=== PATIENT | female | born 1960 | race Caucasian/White ===

== ENCOUNTER → 2022-03-01 | Outpatient (CLI) | payer MEDICAID, SELFPAY ==
--- NOTE | 2022-03-01 08:34 | MRI_ITS ---
STUDY: MRI THORACIC SPINE WITHOUT CONTRAST REASON FOR EXAM: Female, 62 years old. compression fx T6 TECHNIQUE: Standardized fat and water weighted pulse sequences were obtained in the sagittal and axial planes. COMPARISON: Thoracic spine radiograph FINDINGS: Normal kyphosis of the thoracic spine. There is no substantial scoliosis. T1-2, T2-3, T3-4, T4-5, T5-6, T6-7, T7-8, T8-9, T9-10, T10-11, T11-12: Normal endplates. Normal disc hydration, heights and morphology of the corresponding intervertebral discs. Normal central canal and intervertebral neural foramina at the corresponding levels.Compression fracture T6 vertebral body with 50% loss of height and no significant retropulsion. Bone marrow edema noted. Normal visualized thoracic cord. Normal conus medullaris that terminates at the . The soft tissue structures are unremarkable. MRI/Spine Thoracic (Routine) IMPRESSION: Compression fracture T6 as above Electronically Signed: Gary Everett MD at 20:36 EST ,
== END | disposition home or self-care (01) ==
LOC: MRI 08:34
PROVIDERS: PCP Nurse Practitioner Adult Health; Referring Provider Orthopaedic Surgery; Visit Provider Orthopaedic Surgery
DX: S22.050A Wedge compression fracture of T5-T6 vertebra, initial encounter for closed fracture (principal)
CPT/HCPCS: 72146

== ENCOUNTER 2022-04-27 10:53 | Day surgery (SDC) | payer MEDICAID, SELFPAY ==
[2022-04-27] VITALS (9 sets, daily range): BP systolic 104–121; BP diastolic 61–84; PULSE 90–103; RESP 16–18; TEMP 36.6–37.1; O2SAT 92–100; BMI 29.5
[2022-04-27] MEDS: Lactated Ringers 1,000 ML 15 ML IV ×2 (11:25→15:05)
[2022-04-27] MEDS: Cefazolin 2 GM in 0.9% Normal Saline 100 ML IV (13:00)
--- NOTE | 2022-04-27 13:10 | RAD_ITS ---
STUDY: X-RAY - thoracic SPINE REASON FOR EXAM: Female, 62 years old. KYPHOPLASTY T6 TECHNIQUE: 7 view(s) of the lumbar spine were obtained. COMPARISON: None FINDINGS: Intraoperative imaging provided for kyphoplasty of the T6 vertebrae. RAD/Lumbar Spine 2 or 3 Views IMPRESSION: Intraoperative imaging provided for kyphoplasty of the T6 vertebrae. Electronically Signed: Ian Cutler MD at 14:20 EST ,
[2022-04-27 13:15] LABS: Bedside Glucose 134 mg/dL (74-106)
[2022-04-27] MEDS: Bupivacaine Mpf 0.5% 30 ML VIAL (14:05)
[2022-04-27 16:20] LABS: Bedside Glucose 146 mg/dL (74-106)
== END 2022-04-27 16:15 | disposition home or self-care (01) ==
LOC: SDC 10:55 → AC 10:56
PROVIDERS: PCP Nurse Practitioner Adult Health; Referring Provider Anesthesiology Pain Medicine; Visit Provider Anesthesiology Pain Medicine
PROC: (CPT 22513; principal; 2022-04-27 12:45)
DX: M80.08XA Age-related osteoporosis with current pathological fracture, vertebra(e), initial encounter for fracture (principal); J44.9 Chronic obstructive pulmonary disease, unspecified; E11.9 Type 2 diabetes mellitus without complications; M54.14 Radiculopathy, thoracic region; M19.90 Unspecified osteoarthritis, unspecified site; M79.7 Fibromyalgia; Z79.52 Long term (current) use of systemic steroids; Z79.84 Long term (current) use of oral hypoglycemic drugs; Z79.899 Other long term (current) drug therapy
CPT/HCPCS: 22513; 72020; 72100; 76000; 82962; J7120; J2405

== ENCOUNTER 2022-06-05 11:43 | Outpatient (RCR) | payer MEDICAID, SELFPAY ==
--- NOTE | 2022-06-05 13:57 | HP.PTEVAL ---
Patient's Visit Information DASHA CARDENAS is a 62 year old F referred to Physical Therapy by Dr. Prosper Umanzor DO with a diagnosis of Prehab Partial Right Knee. Date of Evaluation: 06/05/22 Physical Therapist: Shaila Helton DPT - Visit Plan Frequency: 1x/Week Duration: 1 Week Plan: Prehab Partial Total Knee - Subjective Patient reports that she broke in January had a Kyphoplasty Apr 27 and is now having a Right Partial Knee Replacement July 03. Wear and tear no specific injury- she has had 2 prior surgeries on this knee. Worst: 10/25 Agg: everything Best: 08/25 Eases: nothing. Pain is around the whole knee and stays swollen all the time- its been worse since back surgery. Pain radiates down and up depending on what she is doing. No N/T in the toes. She wears a knee brace all the time. Sleep: disturbed. Work: not since she broke her back. She retired but she does want to go back to doing something. She wants to go back to retail. PMHx/Meds: no changes since saw ortho - Objective Posture: FH, RS- can correct but does not maintain. Gait: antalgic- decreased stance on the right LE with poor heel/toe pattern due to decreased extension HR/TR: able SLS: 5 sec with increased sway. Observation: moderate edema ROM: 0-115 degrees with pain at end ranges Strength: Knee: Flexion: 14 Extn: 31 Ankle: 4+/5. Flex: HS: severe, Solues: severe. Hamstring: severe Sensation: WNL to gross touch. Palpation: tender along medial and lateral joint line - Goals Goal 1:: Patient will be I with HEP and progression Goal Time Frame: 1 Week - Rehabilitation Potential Physical Therapy Diagnosis: Patient presents with hypomobility- she has decreased LE and core strength/stabilization, ROM, flex, proprioception and muscular endurance leading to abnormal gait and increased pain with ADL's. Rehabilitation Potential: Good - Anticipated Interventions Patient/Client Instruction: Educate patient on: Benefits of Fitness Program Therapeutic Exercise to Include: Strength training, Endurance training, Balance training, Coordination, Agility training, Body mechanics, Postural training, Flexibilty training, Gait and locomotor training, Neuromotor development, Passive ROM, Active ROM, Dynamic Lumbar Stabilization, Scapular Strength/Stabilization Thank you for the opportunity to evaluate your patient. For Medicare and Medicare HMO plans, please review the plan of care and approve it. It will need to be FAXED BACK to us at [phone] for Medicare purposes. For Medicare only, by signing this I certify the plan of care. Please let me know if there are questions or concerns regarding this plan of care. Physician Signature: Date:
--- NOTE | 2022-06-05 13:57 | HP.PTDCSUM ---
It has been my pleasure to treat DASHA CARDENAS referred by Dr. Prosper Umanzor DO, with the diagnosis of Prehab Partial Right Knee for a total of 1 visit(s). Discharge Date: Please see the following information for a summary of their discharge status. Goal 1:: Patient will be I with HEP and progression Plan: Prehab Partial Total Knee If there are questions or concerns regarding this patient's physical therapy, please feel free to call me at [phone]. Thank you for the referral of this patient. Sincerely, CARLOS WareT
== END 2022-06-05 15:41 | disposition home or self-care (01) ==
LOC: PT 11:43
PROVIDERS: PCP Nurse Practitioner Adult Health; Referring Provider Orthopaedic Surgery; Visit Provider Orthopaedic Surgery
DX: M17.11 Unilateral primary osteoarthritis, right knee (principal)
CPT/HCPCS: 97110; 97162

== ENCOUNTER → 2022-06-14 | Outpatient (CLI) | payer MEDICAID, SELFPAY ==
--- NOTE | 2022-06-14 15:43 | CT_ITS ---
EXAM: CT RIGHT LOWER EXTREMITY WITHOUT INTRAVENOUS CONTRAST CLINICAL INDICATION: templating for right TKA TECHNIQUE: Helically acquired images were obtained of the right lower extremity without intravenous contrast. 2-D reformats were performed by the technologist. CTDIvol = ( 24.94 ) mGy, DLP = ( 1805.80 ) mGycm This CT exam was performed using one or more of the following dose reduction techniques: automated exposure control, adjustment of the mA and/or kV according to patient size, and/or use of iterative reconstruction technique. This report was created using [employer] technology. COMPARISON: None. FINDINGS: BONES/JOINTS: Focal lucency is suspicious for osteochondral lesion at the lateral talar dome measuring 6 mm. Large suprapatellar joint effusion. Severe tricompartmental osteoarthrosis of the knee. Moderate osteoarthrosis involving the right hip joint. Calcaneal enthesopathy, more prominent at the plantar aspect. Moderate osteoarthritic changes are seen at the tibiotalar articulation, worse posteriorly. No significant tibiotalar joint effusion on CT. No acute or healing fracture or malalignment. SOFT TISSUES: Unremarkable. No soft tissue swelling or gas. No radiopaque foreign body. CT/Extremity Lower without Contra IMPRESSION: 1. Preoperative planning study. 2. Severe tricompartmental osteoarthrosis of the knee with associated large suprapatellar joint effusion. 3. Focal lucency is suspicious for age indeterminate but likely chronic osteochondral lesion at the lateral talar dome measuring 6 mm. Electronically Signed: Kevin Izquierdo MD at 4:50 EDT ,
== END | disposition home or self-care (01) ==
LOC: CT 15:42
PROVIDERS: PCP Nurse Practitioner Adult Health; Referring Provider Orthopaedic Surgery; Visit Provider Orthopaedic Surgery
DX: M17.11 Unilateral primary osteoarthritis, right knee (principal)
CPT/HCPCS: 73700

== ENCOUNTER 2022-07-03 05:23 | Day surgery (SDC) | payer MEDICAID, SELFPAY ==
[2022-06-21 10:07] LABS: Absolute Neutrophil Count 4.6 X10^3/uL (2.0-7.7); Basophil# 0.07 X10^3/uL; Basophil% 0.9 % (0-1); Eosinophil# 0.36 X10^3/uL; Eosinophils% 4.8 % (0-5); Hematocrit 42.2 % (37-47); Hemoglobin 13.7 g/dL (12.0-15.0); Lymphocyte % 24.1 % (19-41); Mean Corp Hgb Conc 32.5 g/dL (32-36); Mean Corpuscular Volume 92.3 fL (81-99); Monocyte# 0.62 X10^3/uL; Monocyte% 8.3 % (0-10); NRBC Flagged by Analyzer 0 % (0-5); Neutrophil # 4.57 X10^3/uL (2.7-7.7); Neutrophil % 61.4 % (47-70); Platelet Count 282 K/mm3 (150-450); RBC Distribution Width CV 13.2 % (11.6-14.6); RBC Distribution Width SD 45.1 fl (35.1-43.9); Red Blood Count 4.57 M/mm3 (4.2-5.4); White Blood Count 7.5 K/mm3 (4.4-11.0)
[2022-06-21 10:30] LABS: Anion Gap 8 (5-15); BUN 23 mg/dL (7-18); BUN/Creat Ratio 25.9 RATIO (10-20); Calcium,Total 9.2 mg/dL (8.5-10.1); Chloride 104 mmol/L (98-107); Creatinine, Serum 0.89 mg/dL (0.55-1.02); EST Glomerular Filtration Rate 69 mL/min (>60); Est Glom Filt Rate - Afr Amer 83 mL/min (>60); Glucose 136 mg/dL (74-106); Potassium 3.8 mmol/L (3.5-5.1); Sodium Level 138 mmol/L (136-145)
[2022-06-21 10:33] LABS: Prothrombin Time (Protime)PT. 12.4 SECONDS (11.7-14.9)
[2022-06-21 10:34] LABS: Partial Thromboplast Time 32.2 Seconds (24.1-36.2)
[2022-06-21 10:40] LABS: Magnesium 2.3 mg/dL (1.6-2.6)
[2022-06-21 10:43] LABS: Hemoglobin A1c 6.7 % (3.8-5.6)
[2022-06-22 15:50] LABS: Fructosamine 222 umol/L (0-285)
[2022-07-03] VITALS (10 sets, daily range): BP systolic 97–128; BP diastolic 65–79; PULSE 68–88; RESP 14–20; TEMP 36.1–37.2; O2SAT 93–99; BMI 29.0
[2022-07-03] MEDS: Magnesium 1 GM over 15 mins IV (06:14)
[2022-07-03] MEDS: Lactated Ringers 1,000 ML 15 ML IV (06:14)
[2022-07-03] MEDS: Scopolamine 1mg/72hr Patch 1 PATCH TD (06:15)
[2022-07-03] MEDS: Celecoxib 200 MG Capsule 400 MG PO (06:17)
[2022-07-03] MEDS: Acetaminophen 500 MG Tablet 1000 MG PO (06:18)
[2022-07-03] MEDS: Gabapentin 600 MG Tablet PO (06:18)
[2022-07-03] MEDS: Insulin Lispro 100 UNIT/ML INSULN.PEN SC (06:27)
[2022-07-03 06:51] LABS: Bedside Glucose 332 mg/dL (74-106)
--- NOTE | 2022-07-03 07:30 | KNEE_PTH ---
PATIENT: DASHA CARDENAS LOC: [facility] [place] U#:[id number] AGE/SX: 62/F ROOM: RE07/03/[address]: Dr. Prosper Umanzor DO : 1960 BED: DIS: 07/03/2022 SPEC #: [id number] RECD: 07/03/22 11:01 STATUS: PIERCE RECuauhtemoc #: [id number] ROBYN: 07/03/22 07:[address]: Prosper Umanzor DEPT: SURGICAL PATHOLOGY RECD BY: Polina Schmitt ENTERED: 07/03/22 11:25 SP TYPE: TOTAL KNEE OTHR DR: Shannon Herman, GUERA Tissues: Knee, NOS Procedures: Decalcification bone/plaque Surgery Specimen Level IV HEADER OPERATION: ERAS, total knee replacement robotic arm assist PRE-OP DIAGNOSIS: Right knee pain TISSUE SUBMITTED: Bone and soft tissue right knee MICROSCOPIC DIAGNOSIS Bone and tissue, right knee, total knee replacement/resection: Pieces of bone with degenerative osteoarthritic changes. Fibroadipose tissue, fibroconnective tissue and reactive synovial tissue. SJ:isela 07/06/2022 MICROSCOPIC DESCRIPTION Slides are reviewed. GROSS DESCRIPTION Received is one container designated bone and tissue right knee. The specimen consists of multiple fragments of bangura-yellow bone measuring in aggregate 14.0 x 10.0 x 2.0 cm. Also in the specimen container are multiple fragments of yellow-white soft tissue measuring in aggregate 8.0 x 3.0 x 2.0 cm. A number of bony fragments contain articular surfaces consistent with tibial plateau and femoral condyle and displaying prominent osteophyte formation, eburnation and bone erosion. Paraprofessional Aide Teacher sections are submitted in two cassettes as follows: 1 - soft tissue, 2 - bone after decalcification. / AM:isela 07/03/2022 TC:5 CPT: 39876, 90928
[2022-07-03] MEDS: Cefazolin 2 GM in 0.9% Normal Saline 100 ML IV (07:36)
[2022-07-03] MEDS: dexAMETHasone 10 MG/ML Vial IV (07:50)
[2022-07-03] MEDS: TXA 1000mg in NS100 100ml (IVPB at Incision) 660 MG IV (07:50)
[2022-07-03] MEDS: TXA 1000mg in NS100 100ml (IVPB at Closure) 660 MG IV (08:10)
[2022-07-03] MEDS: 0.9% Normal Saline (Pres. free 10 ML Vial 20 ML OPERA.SITE (09:00)
[2022-07-03] MEDS: dexAMETHasone 4 MG/ML Vial OPERA.SITE (09:00)
[2022-07-03] MEDS: Epinephrine (1 mg/ml) 1 MG/ML VIAL OPERA.SITE (09:00)
--- NOTE | 2022-07-03 09:43 | RAD_ITS ---
STUDY: X-RAY - RIGHT KNEE REASON FOR EXAM: Female, 62 years old. Post opin pacu -- in PACU TECHNIQUE: 2 view(s) of the knee. COMPARISON: Comparison is made with prior study May 23, 2022. FINDINGS: The patient is status post total knee replacement. There is good alignment. Postoperative soft tissue changes. RAD/Knee 1 or 2 Views IMPRESSION: Status post total knee replacement. There is good alignment. Postoperative soft tissue changes. Electronically Signed: Ian Cutler MD at 14:52 EDT ,
--- NOTE | 2022-07-03 09:45 | HP.PCM_ITS ---
History and Physical Date of Admission: 07/03/22 [facility] [address] [place] [address] OFFICE VISIT Date of Service:? 06/22/22 MR#: [id number] Acct: [id number] Name:DASHA FUENTES Rep #: [id number] : 1960 ? ? Provider: Dr. Prosper Umanzor, DO Age/Sex:? 62/F ? ? [place] [facility] [place] Status: Signed Intake Intake Visit Reasons:?right knee Allergies aspirin Allergy (Verified 05/18/22 10:58) Nausea/Vom/DiarrheaLatex, Natural Rubber Allergy (Verified 05/18/22 10:58) Hives Medications albuterol sulfate 90 mcg/actuation aerosol inhaler 1 inh inhalation PRN PRN COPD 02/28/22 [History Confirmed 06/22/22] cyclobenzaprine 10 mg tablet 10 mg PO PRN PRN Pain 02/28/22 [History Confirmed 06/22/22] hydrochlorothiazide 25 mg tablet 25 mg PO DAILY 02/28/22 [History Confirmed 06/22/22] lidocaine 5 % topical ointment 1 applic topical DAILY 02/28/22 [History Confirmed 06/22/22] metformin 500 mg tablet 500 mg PO BID 02/28/22 [History Confirmed 06/22/22] amlodipine 5 mg tablet 5 mg PO DAILY 04/25/22 [History Confirmed 06/22/22] benzonatate 100 mg capsule 100 mg PO PRN PRN Cough 04/25/22 [History Confirmed 06/22/22] loratadine 10 mg tablet (Claritin) 10 mg PO DAILY 04/25/22 [History Confirmed 06/22/22] PFSH Medical History? Anxiety Arthritis Back pain Chronic cough COPD (chronic obstructive pulmonary disease) Depression Diabetes Excessive bleeding Fibromyalgia History of IBS History of pain when walking History of rheumatic fever History of steroid therapy Hypertension Injury of back Leg cramps Migraine headache Restless legs Smoker Wears glasses Surgical History? Hx of appendectomy Hx of hernia repair Hx of oophorectomy Hx of tonsillectomy Family History? Mother CancerFather Heart problem Social History? Smoking Status:? Former smoker alcohol intake:? never HPI right knee Details: Parts of this documentation were recorded by a scribe, this documentation accurately reflects the service provided and the decisions made by me, Dr. Prosper Umanzor, DO 06/22/22 6217. DASHA CARDENAS is a 62 year old F here today for? right knee IOVERA treatment prior to right TKA. She continues to have right knee pain. Denies numbness, tingling or other associated symptoms. She has stopped smoking since her last visit. Ortho Exam General General: Yes no acute distress Neurologic: Yes alert and Yes oriented x3 Right Knee Skin/Wound: Yes CDI, No erythema, No ecchymosis and No swelling Homans Sign: No 1+: Effusion Knee ROM: Yes ROM-Extension -20 to 0 and No ROM-Flexion 0-140 (103) Examination: Yes Med jt line tenderness, Yes Lat jt line tenderness, Yes Pain with flexion and No TTP Pes Anserine Stability: NML: Posterior Drawer, 1+: Valgus 0, 1+: Valgus 30 and 1+: Varus 30 (3mm lateral gapping with varus stress) and 2+: Anterior Drawer Patella Translation: 1 Patella Grind: Yes KNEE: valgus deformity painful crepitation with patellar grind laxity with drawer testing Head: Normocephalic Atraumatic Chest: symmetrical rise, non-labored breathing, no audible wheeze Abdomen: no guarding, non-rigid Left Knee Patella Translation: 1 Head: NCAT Chest: symmetrical rise, regular pulse pulm: non labored breathing no audible wheeze abd ; soft nontender no guarding. Office Procedures Iovera Procedure Details:: Preoperative diagnosis :right knee pain Postoperative diagnosis: Same Procedure: Cryotherapy with Iovera device to anterior femoral cutaneous nerve and 2 branches of the infrapatellar saphenous nerve III nerves in total Description of procedure: Patient was brought back to the procedure room the operative extremity was identified by both patient and physician.? The PIP flexion crease was measured to the midpoint of the patella and this distance was divided in 3 resulting in 10 cm location proximal to the midpoint of the patella.? This line was extended medial and lateral to the extent of the edges of the patella.? This was our treatment line for the anterior femoral cutaneous nerve.? A second treatment line was made 5 cm medial to the inferior pole of the patella and 5 cm distally.? The leg was prepped with alcohol and Betadine.? Lidocaine with epi was used along the treatment lines.? Using the Iovera device treatment lines were treated with 1 minute cycles.? Reproduction of paresthesias was monitored in the area of nerve distribution.? Once all 3 nerves were treated across the 2 treatment lines patient was cleaned and a light dressing with 4 x 4 and Nathan wrap was applied.? Patient tolerated the procedure without complication. Coding Level of Care Code Attention Ras Diagnoses Right knee pain? M25.561 Assessment and Plan Assessment and Plan (1) Right knee pain: ?Status:?Acute ? ? ? Orders: Orders Iovera Today M25.569 - Pain in unspecified knee ? Plan Patient instructed to wash the area daily for about 3-4 days. She will leave the dressing and nathan wrap on until tonight.?Risks, benefits and alternatives of surgery reviewed including but not limited to bleeding, infection, nerve, artery and/or tissue damage, fracture, VTE, mechanical feel of the knee, continued pain, stiffness and expected post-operative course.?Reviewed the pre-operative plans with the patient. Risks and benefits of the procedure were fully explained, including but not limited to infection, neurovascular injury, continued pain, arthritis, stiffness, need for further surgery, re-injury, DVT, PE, general risks of anesthesia, and loss of limb or life. The patient understands all the risks and does wish to proceed with written consent for right TKA. Follow up 2 weeks post op or sooner if pain, swelling, numbness or associated symptoms, or concerns develop.? All questions answered. Patient in agreement of plan. 06/22/22 1042 <Electronically signed by Prosper Umanzor DO> Date Prosper Umanzor DO Cosigner Signature: Date (if applicable) ? CC: ? ~ I have examined the patient and the H&P has been reviewed. There are no clinical changes since date of exam.
--- NOTE | 2022-07-03 09:49 | PCM.OP.BLANK ---
Operative Report Date of Procedure: 07/03/22 Preoperative diagnosis: Right knee DJD Postoperative diagnosis: Same Procedure: Right total knee arthroplasty CT guided Robotic Assisted Implant: [place] triathlon press fit, femoral component size 4, tibial baseplate size 5, asymmetric patella size 38, polyethylene X3 size 9 CS Anesthesia: Spinal with adductor canal block Tourniquet time: 15 minutes at 300 mmHg Complications: None Condition: Stable to PACU Estimated blood loss: 125 cc Memorandum Statement Clerk Aubrey Sales. My physician automobile mechanic assistant was a vital part of this case. He was important in appropriate retraction during the case, and protection of soft tissues during procedure. His intimate knowledge of the case and my steps aided in safe and expedient completion of the procedure as well as appropriate position of the extremity during the case. He was also vital in assisting with closure under my direct supervision. Indication for procedure: This is a 62-year-old female with long standing degenerative joint disease of the knee who has failed conservative treatment and wished to proceed with elective total knee arthroplasty. Risk benefits and alternatives were reviewed including; risk of bleeding, infection, nerve artery and tissue damage, continued pain, postoperative stiffness, venous thromboembolism, need for postoperative rehabilitation, mechanical feel to the knee, and expected postoperative course. The pre- operative CT and templating was performed with component sizing. Procedure: The patient was met in the preoperative holding area. The operative extremity was identified by both patient and physician and was marked. Patient was met by anesthesia. An adductor canal block was placed by anesthesia postoperatively the patient was brought back to the operating room on a wheeled cart and transferred to the operating table in the supine position. Anesthesia was started. A well-padded tourniquet was placed on the operative extremity. The patient was prepped and draped in the usual sterile fashion. A timeout was called to ensure the proper patient procedure and extremity were being contemplated. An esmarch was used to exsanguinate the extremity. The tourniquet was inflated. A 10 blade scalpel was used to make a midline incision down through the skin and subcutaneous tissue. Skin retractors placed. Bovie and Aquamantis were used to perform meticulous hemostasis. full-thickness flaps were elevated medial and lateral along the joint capsule. A deep blade scalpel was used to perform a medial parapatellar arthrotomy. The knee was brought to full extension. A bovie was used to release the soft tissues off the most proximal aspect of the medial tibial plateau, a three-quarter inch curved osteotome was also used in this process. The infrapatellar fat pad was excised. The suprapatellar fat pad was excised partially anteriorolateraly and portion the anterioromedial pad was elevated from the femur. At this point our intra-articular femoral array was placed at a 45 degree angle proximal and posterior to the medial epicondyle. femoral checkpoint was placed at this time. Our tibial array was placed greater than 1 hands breath below the incision at a 20 degree angle stab incisions were made with a 15 blade scalpel and pins were placed and attached to the tibial array , tibial checkpoint was placed in the proximal tibial metaphysis. Tourniquet was let down. At this point registration curry were taken throughout the knee . Once the knee was registered we then tensioned the medial and lateral ligaments in extension and 90 degrees of flexion. We then used these numbers to adjust our components within parameters to balance the knee in both flexion and extension once this was done on our monitor we then proceeded with using the robotic arm to make our tibial plateau cut, anterior and posterior chamfer and distal femur cuts. we removed the cut fragments with the use of a bovie and Halina, we did use a lamina stud dairy cattle farmer to insure we visualized and removed all posterior osteophytes and at this time also used the Aquamantis on the posterior joint capsule. we then trialed and achieved the desired plan with a well-balanced knee. we used the green probe to aggie the corresponding tibial rotation based on our CT template. Lug holes were drilled in the femur the tibia preparation was completed with the appropriate sized base plate pinned based on previous rotation aggie. An appropriate sized fin punch was used on the tibia and 4 corner drill was used for the press fit component and the patella was prepared by first using a caliper to ensure sufficient bone stock and a patellar reamer to remove the desired amount of bone. lug holes drilled for an asymmetric poly. We then brought the knee through range of motion with excellent patellar tracking. We thoroughly irrigated the knee. Trial components were removed a posterior capsular injection was preformed with our standard cocktail. In addition the aqua Mantis was also used to aid in hemostasis. Betadine rinse was allowed to sit and washed out completely. Components were press-fit into place. Aricept rinse was then used followed by several more liters of irrigation after it was allowed to sit. The joint capsule was closed with #1 Ethibond [id number] followed by Vicryl in the subcutaneous tissues with nida in the skin. Arrays and checkpoints were removed prior to closure all counts were correct stab incisions were closed with a staple standard dressing in the form of Mepilex AG for the main incision and a small Mepilex over the pin holes. Thigh-high MADELYN hose applied over top of dressing. Patient tolerated the procedure well and was directed to PACU in stable condition . There were no intraoperative complications.
--- NOTE | 2022-07-03 09:51 | EX.PCM.DISCH ---
Discharge Instructions Diet Discharge Diet: 2000 Calorie Control Diet (High sugar diet increases risk of infection minimize carbs and sweets) Dressing / Incision Call your doctor if you observe: Shortness of breath and Chest pain Additional Dressing/Incision Instructions:: Ice and elevate lower extremities 2 weeks while not ambulating. Ambulation is encouraged. Weight bearing as tolerated. Use assistive devise for stability. Encourage FULL knee extension and flexion 1 time EVERY time you get up and down and MULTIPLE times per day. No showering 72 hours after surgery. Begin showering postop day #3. Remove the dressing prior to shower and gently wash with warm water and antibacterial soap then pat dry and place abdominal pad (or plain gauze) and MADELYN hose over top. This is to be done daily. Do not submerge for 3 weeks. If not showering daily after the initial 72 hours then you must clean incision and change dressing daily. Do not allow animals near the incision area. Keep clean. Follow anti-coagulation recommendations as prescribed. Do not take any NSAIDs while on blood thinner. Do not take any additional narcotic pain medication other than what was prescribed on your surgery day without discussing with physician. Narcotic medication can be addictive. Do not drink alcohol while taking narcotics. Supplement narcotic prescription with acetaminophen 1000 mg 4 times a day. Start physical therapy. If you are not currently scheduled for physical therapy or you are unsure of appointment time please call office [facility] to arrange. Call Dr. Umanzor with any concerns. Follow Up Care Please Follow Up With: Prosper Umanzor DO When: 2 weeks Test Results: Test results from this visit will be discussed in further detail at your follow-up appointment, if applicable. Discharge Plan Admission Primary Reason for Your Visit: Right total knee arthroplasty Attending Provider: Prosper Umanzor Primary Care Provider: Shannon Herman NP Discharge Orders/Prescriptions Prescriptions: New acetaminophen [acetaminophen] 500 mg tablet 1,000 mg PO Q6H PRN Qty: 100 0RF cephalexin [cephalexin] 500 mg capsule 1,000 mg PO Q8 Qty: 4 0RF Rx Instructions: take 2 tabs at 9:00 pm and 2 tabs after 5 am when you wake up Eliquis 2.5 mg tablet 2.5 mg PO BID Qty: 30 0RF Rx Instructions: Begin a.m. after surgery oxycodone 5 mg tablet 5 mg PO Q4H PRN (Reason: pain) 7 Days Qty: 60 0RF Continued albuterol sulfate 90 mcg/actuation HFA aerosol inhaler 1 inh inhalation PRN PRN (Reason: COPD) cyclobenzaprine 10 mg tablet 10 mg PO PRN PRN (Reason: Pain) hydrochlorothiazide 25 mg tablet 25 mg PO DAILY lidocaine 5 % ointment 1 applic topical DAILY metformin 500 mg tablet 500 mg PO BID amlodipine 5 mg tablet 5 mg PO DAILY Label Comments: Take 1 tablet by mouth once daily. benzonatate 100 mg capsule 100 mg PO PRN PRN (Reason: Cough) Label Comments: Take 1 capsule by mouth three times daily as needed for cough. loratadine [Claritin] 10 mg Tablet 10 mg PO DAILY Other Ambulatory Orders: 12 Lead EKG (Routine) Timeframe: [id number] Location: None Selected Ordered By: Dr. Prosper Umanzor Referrals / Follow Up: Shannon Herman INORGANIC CHEMISTRY PROFESSOR, INORGANIC CHEMISTRY PROFESSOR-C [Primary Care Provider] - Disposition Disposition (needs filled in before D/C Order can be placed): Home, Self Care
[2022-07-03 10:20] LABS: Bedside Glucose 106 mg/dL (74-106)
[2022-07-03] MEDS: Lactated Ringers 1,000 ML 125 ML IV ×2 (10:50→12:21)
[2022-07-03] MEDS: Cefazolin 1 GM/50 ML BAG IV (12:21)
[2022-07-03] MEDS: oxyCODONE 5 MG Tablet PO (12:21)
== END 2022-07-03 15:32 | disposition home or self-care (01) ==
LOC: SDC 05:24 → AC 05:24
PROVIDERS: Anesthesiology; PCP Nurse Practitioner Adult Health; Referring Provider Orthopaedic Surgery; Visit Provider Orthopaedic Surgery
PROC: 0SRC0JZ Replacement of Right Knee Joint with Synthetic Substitute, Open Approach (ICD-10-PCS; CPT 27447; principal; 2022-07-03 07:00)
DX: M17.11 Unilateral primary osteoarthritis, right knee (principal); J44.9 Chronic obstructive pulmonary disease, unspecified; E11.9 Type 2 diabetes mellitus without complications; I10 Essential (primary) hypertension; M81.0 Age-related osteoporosis without current pathological fracture; Z79.84 Long term (current) use of oral hypoglycemic drugs; Z79.01 Long term (current) use of anticoagulants; Z79.899 Other long term (current) drug therapy; Z87.891 Personal history of nicotine dependence
CPT/HCPCS: 27447; 64447; 01402; 36415; 73560; 80048; 82962; 82985; 83036; 83735; 85025; 85610; 85730; 86850; 86900; 86901; 87081; 88305; 88311; 93005; 97162; C1776; J7120; J2405; J3475; J3490

== ENCOUNTER 2022-08-31 12:00 | Outpatient (RCR) | payer MEDICAID, SELFPAY ==
--- NOTE | 2022-07-06 11:47 | HP.PTEVAL_ITS ---
Patient's Visit Information DASHA CARDENAS is a 62 year old F referred to Physical Therapy by Dr. Prosper Umanzor DO with a diagnosis of Right TKR. Date of Evaluation: 07/06/22 Physical Therapist: Shaila Helton DPT - Visit Plan Frequency: 2-3x /Week Duration: 4 Weeks Plan: Right TKR 07/03/22- Focus on ROM, LE strength and functional mobility (amb, stairs). HEP Given IE: quad set, SLR, supine heel slide, seated extn stretch, seated heel slide - Subjective Right Total Knee Replacement 07/03/[address] Armstrong- she went home after surgery. Two story home with with 12 stairs to enter with railings- she is able to get in/out. She used a cane intermittently prior to surgery. Worst: 10/10 Agg: first thing in the morning, movement Eases: medication, ice, elevation. Best: 5/10. Pain in the knee and does radiate to the ankle but no pain radiating to the hip. She describes the pain as achy. She does have transportation and some help if she needs it. Sleep: in the chair and will go up 3 steps to her bed- she is up/down. She is working to keep moving. No N/T in the toes. No loss or change in bowel or bladder. Goes back to [facility] on July 16. She has been doing ankle pumps, heel slides at home. 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 PMHx/Meds: no changes since saw ortho. - Objective Posture: FH, RS- can correct with verbal cues but does not maintain. Gait: antalgic- decreased stance on the right LE with foot flat contact FWW. SLS: weight shifting-but is unable to SLS without loss of balance. Palpation: tender along medial and lateral joint line. Observation: removed dressing- no s/s of infection- nida intact ROM: 25-85 degrees without over pressure (heel slide supine)- pain at end ranges Strength: Core: fair, Hip: 4/5 Knee: min A for SLR- quad set visible Extn: 4.2 Flexion: 4.6 lbs pain with testing, Ankle: 5/5. Flex: HS: moderate Gastroc: moderate. Girth: Patella: 43 cm, 6 above 48 cm. Stairs: asc: recip with 2 HR desc: non recip with 2 HR - Balance/Special Test Scores WOMAC Total Score: 87 WOMAC Percentatge: 9.3800 - Goals Goal 1:: Patient will be I with HEP and progression Goal Time Frame: 4-6 Weeks Goal 2:: Patient will ambulate >300 feet with LRD and normalized gait pattern Goal Time Frame: 4-6 Weeks Goal 3:: Patient will asc/desc 8 stairs with recip pattern Goal Time Frame: 4-6 Weeks Goal 4:: Patient will demo 0-115 degrees of ROM in the left knee Goal Time Frame: 4-6 Weeks Goal 5:: Patient will report 80% improvement Goal Time Frame: 4-6 Weeks - Rehabilitation Potential Physical Therapy Diagnosis: Patient presents s/p Right TKR- she has decreased LE ROM, LE and core strength/stabilization, flex and muscular endurance leading to abnormal gait and increased pain with ADL's. Rehabilitation Potential: Good - Anticipated Interventions Patient/Client Instruction: Educate patient on: Benefits of Fitness Program Therapeutic Exercise to Include: Strength training, Endurance training, Balance training, Agility training, Body mechanics, Postural training, Flexibilty training, Gait and locomotor training, Neuromotor development, Passive ROM, Act nimisha ROM, Dynamic Lumbar Stabilization For the Purpose of:: To improve muscle performance and motor function TENS: Yes Cryotherapy (ice pack, ice massage): Yes Thermo therapy (hot pack): Yes Ultrasound (thermal/non thermal): No Thank you for the opportunity to evaluate your patient. For Medicare and Medicare HMO plans, please review the plan of care and approve it. It will need to be FAXED BACK to us at [phone] for Medicare purposes. For Medicare only, by signing this I certify the plan of care. Please let me know if there are questions or concerns regarding this plan of care. Physician Signature: Date:
--- NOTE | 2022-08-02 11:53 | HP.PTREVAL ---
Dr. Prosper Umanzor, DO, It has been my pleasure to treat DASHA CARDENAS over the last 9 visits for Right TKR. Please see the progress note below for an update on the physical therapy plan of care! Subjective: Pt reports that she is now able to put on socks and shoes, up and down the steps. She can do more now and not afraid that it will give out. Objective/Function: R hip flex 16.3 and L 16.5. R knee ext 21.6 and L 22.3. R knee flex 9.7 and 10.2 on the L. Stairs: up and down stairs recip with stiffness in the R knee and ankle ascending and descending the steps with 1 hand rail. Gait. R knee AROM -3 degrees to 124 degrees Plan Plan: 2X/ week for 3-4 weeks to Work on the last little bit of flexion and extension, gait, stairs, and strength Balance/Gait/Functional tests - Balance/Special Test Scores Lower Extremity Functional Score: 49 WOMAC Total Score: 87 WOMAC Percentage: 9.3800 Goals Goal 1:: Patient will be I with HEP and progression Goal Time Frame: 4-6 Weeks Goal Progress: Goal Met Goal 2:: Patient will ambulate >300 feet with LRD and normalized gait pattern Goal Time Frame: 4-6 Weeks Goal Progress: Progressing Goal 3:: Patient will asc/desc 8 stairs with recip pattern with 1 hand rail with no signs of stiffness Goal Time Frame: 4-6 Weeks Goal Progress: Progressing Goal 4:: Patient will demo 0-125 degrees of ROM in the left knee Goal Time Frame: 4-6 Weeks Goal Progress: Progressing Goal 5:: Patient will report 80% improvement Goal Time Frame: 4-6 Weeks Goal Progress: Progressing Anticipated Interventions Patient/Client Instruction: Educate patient on: Benefits of Fitness Program Therapeutic Exercise to Include: Strength training, Endurance training, Balance training, Agility training, Body mechanics, Postural training, Flexibilty training, Gait and locomotor training, Neuromotor development, Passive ROM, Active ROM, Dynamic Lumbar Stabilization For the Purpose of:: To improve muscle performance and motor function TENS: Yes Cryotherapy (ice pack, ice massage): Yes Thermo therapy (hot pack): Yes Ultrasound (thermal/non thermal): No Please do not hesitate to contact me at [phone] by phone or if you have questions or concerns regarding this new plan of care! Sincerely, Vane Calixto, MPT
--- NOTE | 2022-10-15 09:55 | HP.PT.NRP ---
Patient Information Patient Information: DASHA CARDENAS was seen in my office for initial evaluation on 07/06/22. The following Plan of Care was established for this patient: POC Established Initial Frequency: 2-3x /Week Initial Duration: 4 Weeks Anticipated Interventions Patient/Client Instruction: Educate patient on: Benefits of Fitness Program Therapeutic Exercise to Include: Strength training, Endurance training, Balance training, Agility training, Body mechanics, Postural training, Flexibilty training, Gait and locomotor training, Neuromotor development, Passive ROM, Active ROM and Dynamic Lumbar Stabilization For the Purpose of:: To improve muscle performance and motor function TENS: Yes Cryotherapy (ice pack, ice massage): Yes Thermo therapy (hot pack): Yes Ultrasound (thermal/non thermal): No Last Seen Last Seen: This patient was last seen in our office . Pertinent comments regarding their Physical therapy will appear below: Patient has not attended PT in over 30 days- was going back to see ortho- will continue to perform HEP and call if questions or concerns arise. Appropriate to be d/c from PT. At this point I will be discontinuing this patient from physical therapy. I would be happy to see this patient again in the future if found appropriate by the physician. Thank you! Shaila Helton, CARLOST Balance/Gait/Functional tests Balance/Special Test Scores Lower Extremity Functional Score: 51 WOMAC Total Score: 87 WOMAC Percentage: 9.3800
== END 2022-08-31 19:00 | disposition home or self-care (01) ==
LOC: PT 12:00
PROVIDERS: PCP Nurse Practitioner Adult Health; Referring Provider Orthopaedic Surgery; Visit Provider Orthopaedic Surgery
DX: M17.11 Unilateral primary osteoarthritis, right knee (principal); Z47.1 Aftercare following joint replacement surgery; Z96.651 Presence of right artificial knee joint
CPT/HCPCS: 97110; 97162; 97530

== ENCOUNTER → 2023-03-28 | Outpatient (CLI) | payer MEDICAID, SELFPAY ==
--- NOTE | 2023-03-28 06:43 | MRI_ITS ---
STUDY: MRI THORACIC SPINE WITHOUT CONTRAST REASON FOR EXAM: Female, 63 years old patient with thoracic compression fracture. TECHNIQUE: Standardized fat and water weighted pulse sequences were obtained in the sagittal and axial planes. COMPARISON: MRI of the thoracic spine dated March 01 1122 and radiographs of the thoracic spine dated March 26, 2023. FINDINGS: Normal kyphosis of the thoracic spine. There is no substantial scoliosis. T1-2, T2-3, T3-4, T4-5, T5-6, T6-7, T7-8, T8-9, T9-10, T10-11, T11-12: There is a severe compression of T6 which appears similar to previous MRI dated March 01, 2022. Patient has had a kyphoplasty of the compression fracture since the previous study. There is a disc bulge at T8-9 and T9-10. There is facet joint arthropathy on the left at T5-6. The remaining thoracic vertebral bodies have normal height, alignment and signal characteristics. There is multilevel spondylosis. There is no significant central canal stenosis. Neural foramina are generally patent. Normal visualized thoracic cord. Normal conus medullaris that terminates at the L1 level. The soft tissue structures are unremarkable. MRI/Spine Thoracic (Routine) IMPRESSION: 1. Chronic compression fracture T6 treated with kyphoplasty. 2. No MR evidence to suggest acute compression fracture. 3. Multilevel thoracic spondylosis without evidence of cord or nerve impingement. Electronically Signed: Betsy Orozco MD at 8:00 EST ,
--- OUTSIDE RECORDS SUMMARY | 2023-03-28 06:43 | XMS RPT_ITS | CCD ---
Author Name Unknown Address [address] [place] [address] Organization [facility] Care Team Providers Care Food Services Director Name Role Phone Soledad Peña (Historic) Unavailable Chin NETWORK RELATIONS CONSULTANT.Yenny WEST Primary Care Provider Unknown, Referring Provider Unavailable Unav ailable Unavailable Unavailable Soledad Peña (Historic) Unavailable Chin NETWORK RELATIONS CONSULTANT.Yenny WEST Primary Care Provider Soledad Peña (Historic) Unavailable Soledad Peña (Historic) Unavailable [phone] Chin NETWORK RELATIONS CONSULTANT.Yenny WEST Primary Care Provider MELODY NEELYE Terrence Primary Care Unavailable MELODY NEELYE M Attending Unavailable CHIN, YENNY M Primary Care Unavailable YENNY NEELY M Attending Unavailable CHIN, YENNY M Primary Care Unavailable MEREDITH MASTERSON Referring Unavailable CHIN, YENNY M Primary Care Unavailable CHIN, YENNY M Referring Unavailable CHIN, YENNY M Attending Unavailable CHIN, YENNY M Referring Unavailable CHIN, YENNY M Primary Care Unavailable CHIN, YENNY M Referring Unavailable CHIN, YENNY M Primary Care Unavailable CHIN, YENNY M Attending Unavailable CHIN, YENNY M Referring Unavailable CHIN, YENNY M Primary Care Unavailable CHIN, YENNY M Primary Care Unavailable CHIN, YENNY M Referring Unavailable CHIN, YENNY M Primary Care Unavailable FRANCISCO MONTES Attending Unavailable FRANCISCO MONTES Referring Unavailable CHIN, YENNY M Primary Care Unavailable Allergies Allergy Classification Reported Allergen(s) Allergy Type Date of Onset Reaction(s) Facility (20 sources) Acetaminophen / HYDROcodone; Translations: [HYDROCODONE-ACETA MINOPHEN] Drug Allergy 12-28-2011 Hives [facility] (20 sources) Aspirin; Translations: [ASPIRIN] Drug Allergy 12-28-2011 GI Upset [facility] (20 sources) Latex; Translations: [LATEX] Drug Allergy 12-28-2011 Rash [facility] Medications Current Medications Medication Drug Class(es) Dates Sig (Normalized) Sig (Original) predniSONE 20 mg oral tablet (2 sources) Start: 02-23-2022 End: 02-28-2022 take 2 tablets by mouth once daily predniSONE (DELTASONE) 20 mg tablet Indications: Compression fracture of T6 vertebra, initial encounter ([facility]) , Midline thoracic back pain, unspecified chronicity Take 2 tablets by mouth once daily for 5 days. 10 tablet 0 02/23/2022 02/28/2022 Active Completed/Discontinued Medications Medication Drug Class(es) Dates Sig (Normalized) Sig (Original) [id number] 200 actuat albuterol 0.09 mg/actuat metered dose inhaler (20 sources) beta2-Adrenergic Agonist Start: 09-20-2020 End: 06-03-2022 take 2 puff(s) by inhalation every four hours as needed albuterol HFA (PROVENTIL HFA, VENTOLIN HFA) 90 mcg/actuation inhaler Indications: Tobacco use disorder , SOB (shortness of breath) Inhale 2 Puffs as instructed every 4 hours as needed. 18 g 1 06/03/2022 Active Problems Active Problems Problem Classification Problem Date Documented Da te Episodic/Chronic Anxiety disorders (20 sources) Mixed anxiety and depressive disorder; Translations: [Anxiety disorder, unspecified] Onset: 04-24-2017 04-24-2017 Chronic Diabetes mellitus without complication (20 sources) Type 2 diabetes mellitus; Translations: [Type 2 diabetes mellitus without complications] Onset: 08-14-2018 08-14-2018 Chronic Essential hypertension (20 sources) Essential hypertension; Translations: [Essential (primary) hypertension] Onset: 04-24-2017 04-24-2017 Chronic Fracture of lower limb (1 source) Closed fracture of fourth metatarsal bone ; Translations: [Nondisplaced fracture of fourth metatarsal bone, right foot, initial encounter for closed fracture] Episodic Immunizations and screening for infectious disease (3 sources) Requires diphtheria, tetanus and pertussis vaccination; Translations: [Encounter for immunization] Episodic Mood disorders (20 sources) Depressive disorder; Translations: [Depressive disorder] 08-14-2018 Chronic Mood disorders (1 source) Mood disorders; Translations: [Anxiety and depression] Onset: 04-24-2017 Nutritional deficiencies (1 source) Vitamin D deficiency, unspecified; Translations: [Vitamin D deficiency] Onset: 06-21-2022 Chronic Other bone disease and musculoskeletal deformities (1 source) Osteopenia; Translations: [Other specified disorders of bone density and structure, unspecified site] Episodic Other connective tissue disease (2 sources) Impingement syndrome of shoulder region; Translations: [Other affections of shoulder region, not elsewhere classified] Episodic Other connective tissue disease (2 sources) Pain in both feet; Translations: [Pain in right foot] Episodic Other connective tissue disease (2 sources) Pain in right foot; Translations: [Pain in right foot] Episodic Other fractures (4 sources) Fracture of sixth thoracic vertebra; Translations: [Wedge compression fracture of T5-T6 vertebra, sequela] Episodic Other lower respiratory disease (2 sources) Dyspnea; Translations: [Shortness of breath] Episodic Other lower respiratory disease (1 source) Persistent cough; Translations: [Persistent cough for 3 weeks or longer] Episodic Other lower respiratory disease (2 sources) Wheezing; Translations: [Wheezing] Episodic Other lower respiratory disease (1 source) Cough; Translations: [Acute cough] 01-30-2023 Episodic Other nervous system disorders (20 sources) Chronic pain; Translations: [Other chronic pain] 08-19-2018 Chronic Other nervous system disorders (2 sources) Other chronic pain; Translations: [Other chronic pain] Onset: 08-19-2018 Chronic Other non-traumatic joint disorders (5 sources) Chronic pain of right upper limb; Translations: [Pain in right shoulder] Episodic Other non-traumatic joint disorders (2 sources) Shoulder pain; Translations: [Pain in joint, shoulder region] Episodic Other nutritional; endocrine; and metabolic disorders (1 source) Unintentional weight loss; Translations: [Abnormal weight loss] Episodic Other screening for suspected conditions (not mental disorders or infectious disease) (16 sources) Patient encounter status; Translations: [Encounter for screening for other suspected endocrine disorder] Onset: 06-21-2022 Episodic Other skin disorders (1 source) Finding of neck region; Translations: [Localized swelling, mass and lump, neck] Episodic Other upper respiratory disease (2 sources) Allergic rhinitis due to animal (cat) (dog) hair and dander; Translations: [Allergic rhinitis due to other allergen] Onset: 04-17-2022 Chronic Residual codes; unclassified (1 source) Insomnia; Translations: [Insomnia, unspecified] Episodic Residual codes; unclassified (3 sources) Tobacco user; Translations: [Tobacco use] Episodic Residual codes; unclassified (2 sources) Postmenopausal state; Translations: [Asymptomatic menopausal state] Episodic Residual codes; unclassified (1 source) Tobacco use; Translations: [Tobacco use current] Onset: 02-21-2023 Episodic Spondylosis; intervertebral disc disorders; other back problems (1 source) Thoracic back pain; Translations: [Pain in thoracic spine] Episodic Substance-related disorders (20 sources) Tobacco user; Translations: [Nicotine dependence, unspecified, uncomplicated] Onset: 01-13-2018 01-13-2018 Chronic Unclassified (1 source) Acute cough; Translations: [Acute cough] Onset: 01-30-2023 Past or Other Problems Problem Classification Problem Date Documented Da te Episodic/Chronic Other bone disease and musculoskeletal deformities (1 source) Other specified disorders of bone density and structure, unspecified site; Translations: [Osteopenia, unspecified location] Onset: 03-28-2022 Episodic Other connective tissue disease (20 sources) Disorder of lower extremity; Translations: [Other muscle spasm] Onset: 04-24-2017 04-24-2017 Episodic Other connective tissue disease (1 source) Pain in right foot; Translations: [Right foot pain] Onset: 06-27-2022 Episodic Other fractures (1 source) Wedge compression fracture of T5-T6 vertebra, sequela; Translations: [Compression fracture of T6 vertebra, sequela] Onset: 03-14-2022 Episodic Other non-traumatic joint disorders (2 sources) Pain in right knee; Translations: [Pain in joint, lower leg] Onset: 06-21-2022 Episodic Other skin disorders (1 source) Localized swelling, mass and lump, neck; Translations: [Localized swelling, mass and lump, neck] Onset: 04-17-2022 Episodic Residual codes; unclassified (1 source) Asymptomatic menopausal state; Translations: [Post-menopausal] Onset: 03-14-2022 Episodic Results Test Name Value Interpretation Reference Range Facil ity Vital Signs Date Time Vital Sign Value Performing Clinician Facility 01-30-2023 09:53-0500 Body height 175.3 cm Yenny Chin NETWORK RELATIONS CONSULTANT.OTOLARYNGOLOGY SURGEON Work Phone: [facility] 01-30-2023 09:53-0500 Body temperature 98.2 [degF] Yenny Chin NETWORK RELATIONS CONSULTANT.OTOLARYNGOLOGY SURGEON Work Phone: [facility] 01-30-2023 09:53-0500 Body weight 88.45 kg Yenny Chin NETWORK RELATIONS CONSULTANT.OTOLARYNGOLOGY SURGEON Work Phone: [facility] 01-30-2023 09:53-0500 Diastolic blood pressure 70 mm[Hg] Yenny Chin NETWORK RELATIONS CONSULTANT.OTOLARYNGOLOGY SURGEON Work Phone: [facility] 01-30-2023 09:53-0500 Heart rate 93 /min Yenny Chin NETWORK RELATIONS CONSULTANT.OTOLARYNGOLOGY SURGEON Work Phone: [facility] 01-30-2023 09:53-0500 Respiratory rate 18 /min Yenny Chin NETWORK RELATIONS CONSULTANT.OTOLARYNGOLOGY SURGEON Work Phone: [facility] 01-30-2023 09:53-0500 SaO2% (BldA) [Mass fraction] 97 % Yenny Chin NETWORK RELATIONS CONSULTANT.OTOLARYNGOLOGY SURGEON Work Phone: [facility] 01-30-2023 09:53-0500 Systolic blood pressure 122 mm[Hg] Yenny Chin NETWORK RELATIONS CONSULTANT.OTOLARYNGOLOGY SURGEON Work Phone: [facility] 07-23-2022 09:07-0400 Body height 175.3 cm Yenny Chin NETWORK RELATIONS CONSULTANT.OTOLARYNGOLOGY SURGEON Work Phone: [facility] 07-23-2022 09:07-0400 Body temperature 97.59 [degF] Yenny Chin NETWORK RELATIONS CONSULTANT.OTOLARYNGOLOGY SURGEON Work Phone: [facility] 05-08-2023 09:07-0400 Body weight 90.45 kg Yenny Chin NETWORK RELATIONS CONSULTANT.OTOLARYNGOLOGY SURGEON Work Phone: [facility] 07-23-2022 09:07-0400 Diastolic blood pressure 62 mm[Hg] Yenny Chin NETWORK RELATIONS CONSULTANT.OTOLARYNGOLOGY SURGEON Work Phone: [facility] 07-23-2022 09:07-0400 Heart rate 75 /min Yenny Chin NETWORK RELATIONS CONSULTANT.OTOLARYNGOLOGY SURGEON Work Phone: [facility] 07-23-2022 09:07-0400 Respiratory rate 18 /min Yenny Chin NETWORK RELATIONS CONSULTANT.OTOLARYNGOLOGY SURGEON Work Phone: [facility] 07-23-2022 09:07-0400 SaO2% (BldA) [Mass fraction] 94 % Yenny Chin NETWORK RELATIONS CONSULTANT.OTOLARYNGOLOGY SURGEON Work Phone: [facility] 07-23-2022 09:07-0400 Systolic blood pressure 120 mm[Hg] Yenny Chin NETWORK RELATIONS CONSULTANT.OTOLARYNGOLOGY SURGEON Work Phone: [facility] 06-21-2022 10:26-0400 Body height 175.3 cm Yenny Chin NETWORK RELATIONS CONSULTANT.OTOLARYNGOLOGY SURGEON Work Phone: [facility] 06-21-2022 10:26-0400 Body temperature 98.2 [degF] Yenny Chin NETWORK RELATIONS CONSULTANT.OTOLARYNGOLOGY SURGEON Work Phone: [facility] 06-21-2022 10:26-0400 Body weight 91.54 kg Yenny Chin NETWORK RELATIONS CONSULTANT.OTOLARYNGOLOGY SURGEON Work Phone: [facility] 06-21-2022 10:26-0400 Diastolic blood pressure 78 mm[Hg] Yenny Chin NETWORK RELATIONS CONSULTANT.OTOLARYNGOLOGY SURGEON Work Phone: [facility] 06-21-2022 10:26-0400 Heart rate 60 /min Yenny Chin NETWORK RELATIONS CONSULTANT.OTOLARYNGOLOGY SURGEON Work Phone: [facility] 06-21-2022 10:26-0400 Respiratory rate 18 /min Yenny Chin NETWORK RELATIONS CONSULTANT.OTOLARYNGOLOGY SURGEON Work Phone: [facility] 06-21-2022 10:26-0400 SaO2% (BldA) [Mass fraction] 100 % Yenny Chin NETWORK RELATIONS CONSULTANT.OTOLARYNGOLOGY SURGEON Work Phone: [facility] 06-21-2022 10:26-0400 Systolic blood pressure 128 mm[Hg] Yenny Chin NETWORK RELATIONS CONSULTANT.OTOLARYNGOLOGY SURGEON Work Phone: [facility] 04-17-2022 07:53-0500 Body height 175.3 cm Yenny Chin NETWORK RELATIONS CONSULTANT.OTOLARYNGOLOGY SURGEON Work Phone: [facility] 04-17-2022 07:53-0500 Body temperature 97.59 [degF] Yenny Chin NETWORK RELATIONS CONSULTANT.OTOLARYNGOLOGY SURGEON Work Phone: [facility] 04-17-2022 07:53-0500 Body weight 89.54 kg Yenny Chin NETWORK RELATIONS CONSULTANT.OTOLARYNGOLOGY SURGEON Work Phone: [facility] 04-17-2022 07:53-0500 Diastolic blood pressure 78 mm[Hg] Yenny Chin NETWORK RELATIONS CONSULTANT.OTOLARYNGOLOGY SURGEON Work Phone: [facility] 04-17-2022 07:53-0500 Heart rate 104 /min Yenny Chin NETWORK RELATIONS CONSULTANT.OTOLARYNGOLOGY SURGEON Work Phone: [facility] 04-17-2022 07:53-0500 Respiratory rate 18 /min Yenny Chin NETWORK RELATIONS CONSULTANT.OTOLARYNGOLOGY SURGEON Work Phone: [facility] 04-17-2022 07:53-0500 SaO2% (BldA) [Mass fraction] 99 % Yenny Chin NETWORK RELATIONS CONSULTANT.OTOLARYNGOLOGY SURGEON Work Phone: [facility] 04-17-2022 07:53-0500 Systolic blood pressure 128 mm[Hg] Yenny Chin NETWORK RELATIONS CONSULTANT.OTOLARYNGOLOGY SURGEON Work Phone: [facility] 02-23-2022 11:19-0500 Body height 175.3 cm Meredith Masterson NETWORK RELATIONS CONSULTANT.OTOLARYNGOLOGY SURGEON Work Phone: [facility] 02-23-2022 11:19-0500 Body temperature 98.2 [degF] Meredith Cloudden NETWORK RELATIONS CONSULTANT.OTOLARYNGOLOGY SURGEON Work Phone: [facility] 02-23-2022 11:19-0500 Body weight 88.91 kg Meredith Cloudden NETWORK RELATIONS CONSULTANT.OTOLARYNGOLOGY SURGEON Work Phone: [facility] 02-23-2022 11:19-0500 Diastolic blood pressure 76 mm[Hg] Meredith Queden NETWORK RELATIONS CONSULTANT.OTOLARYNGOLOGY SURGEON Work Phone: [facility] 02-23-2022 11:19-0500 Heart rate 106 /min Meredith Cloudden NETWORK RELATIONS CONSULTANT.OTOLARYNGOLOGY SURGEON Work Phone: [facility] 02-23-2022 11:19-0500 SaO2% (BldA) [Mass fraction] 98 % Meredith Cloudden NETWORK RELATIONS CONSULTANT.OTOLARYNGOLOGY SURGEON Work Phone: [facility] 02-23-2022 11:19-0500 Systolic blood pressure 146 mm[Hg] Meredith Queden NETWORK RELATIONS CONSULTANT.OTOLARYNGOLOGY SURGEON Work Phone: [facility] 02-07-2022 10:18-0500 Body height 175.3 cm Catia Sultana APRN.OTOLARYNGOLOGY SURGEON Work Phone: [facility] 02-07-2022 10:18-0500 Body weight 88.91 kg Catia Sultana APRN.OTOLARYNGOLOGY SURGEON Work Phone: [facility] 02-07-2022 10:18-0500 Diastolic blood pressure 82 mm[Hg] Catia Sultana APRN.OTOLARYNGOLOGY SURGEON Work Phone: [facility] 02-07-2022 10:18-0500 Heart rate 97 /min Catia Sultana APRN.OTOLARYNGOLOGY SURGEON Work Phone: [facility] 02-07-2022 10:18-0500 SaO2% (BldA) [Mass fraction] 97 % Catia Sultana APRN.OTOLARYNGOLOGY SURGEON Work Phone: [facility] 02-07-2022 10:18-0500 Systolic blood pressure 134 mm[Hg] Catia Sultana APRN.OTOLARYNGOLOGY SURGEON Work Phone: [facility] 01-22-2022 09:00-0500 Body height 175.3 cm Yenny Chin NETWORK RELATIONS CONSULTANT.OTOLARYNGOLOGY SURGEON Work Phone: [facility] 01-22-2022 09:00-0500 Body temperature 98.2 [degF] Yenny Chin NETWORK RELATIONS CONSULTANT.OTOLARYNGOLOGY SURGEON Work Phone: [facility] 01-22-2022 09:00-0500 Body weight 89.81 kg Yenny Chin NETWORK RELATIONS CONSULTANT.OTOLARYNGOLOGY SURGEON Work Phone: [facility] 01-22-2022 09:00-0500 Diastolic blood pressure 70 mm[Hg] Yenny Chin NETWORK RELATIONS CONSULTANT.OTOLARYNGOLOGY SURGEON Work Phone: [facility] 01-22-2022 09:00-0500 Heart rate 86 /min Yenny Chin NETWORK RELATIONS CONSULTANT.OTOLARYNGOLOGY SURGEON Work Phone: [facility] 01-22-2022 09:00-0500 Respiratory rate 18 /min Yenny Chin NETWORK RELATIONS CONSULTANT.OTOLARYNGOLOGY SURGEON Work Phone: [facility] 01-22-2022 09:00-0500 SaO2% (BldA) [Mass fraction] 95 % Yenny Chin NETWORK RELATIONS CONSULTANT.OTOLARYNGOLOGY SURGEON Work Phone: [facility] 01-22-2022 09:00-0500 Systolic blood pressure 110 mm[Hg] Yenny Chin NETWORK RELATIONS CONSULTANT.OTOLARYNGOLOGY SURGEON Work Phone: [facility] 08-08-2021 14:22-0400 Body height 175.3 cm Yenny Chin NETWORK RELATIONS CONSULTANT.OTOLARYNGOLOGY SURGEON Work Phone: [facility] 08-08-2021 14:22-0400 Body temperature 98.2 [degF] Yenny Chin NETWORK RELATIONS CONSULTANT.OTOLARYNGOLOGY SURGEON Work Phone: [facility] 08-08-2021 14:22-0400 Body weight 91.63 kg Yenny Chin NETWORK RELATIONS CONSULTANT.OTOLARYNGOLOGY SURGEON Work Phone: [facility] 08-08-2021 14:22-0400 Diastolic blood pressure 70 mm[Hg] Yenny Chin NETWORK RELATIONS CONSULTANT.OTOLARYNGOLOGY SURGEON Work Phone: [facility] 08-08-2021 14:22-0400 Heart rate 90 /min Yenny Chin NETWORK RELATIONS CONSULTANT.OTOLARYNGOLOGY SURGEON Work Phone: [facility] 08-08-2021 14:22-0400 Respiratory rate 18 /min Yenny Chin NETWORK RELATIONS CONSULTANT.OTOLARYNGOLOGY SURGEON Work Phone: [facility] 08-08-2021 14:22-0400 SaO2% (BldA) [Mass fraction] 97 % Yenny Chin NETWORK RELATIONS CONSULTANT.OTOLARYNGOLOGY SURGEON Work Phone: [facility] 08-08-2021 14:22-0400 Systolic blood pressure 122 mm[Hg] Yenny Chin NETWORK RELATIONS CONSULTANT.OTOLARYNGOLOGY SURGEON Work Phone: [facility] 07-17-2021 09:20-0400 Body height 175.3 cm Yenny Chin NETWORK RELATIONS CONSULTANT.OTOLARYNGOLOGY SURGEON Work Phone: [facility] 07-17-2021 09:20-0400 Body temperature 97.59 [degF] Yenny Chin NETWORK RELATIONS CONSULTANT.OTOLARYNGOLOGY SURGEON Work Phone: [facility] 07-17-2021 09:20-0400 Body weight 96.07 kg Yenny Chin NETWORK RELATIONS CONSULTANT.OTOLARYNGOLOGY SURGEON Work Phone: [facility] 07-17-2021 09:20-0400 Diastolic blood pressure 74 mm[Hg] Yenny Chin NETWORK RELATIONS CONSULTANT.OTOLARYNGOLOGY SURGEON Work Phone: [facility] 07-17-2021 09:20-0400 Heart rate 101 /min Yenny Chin NETWORK RELATIONS CONSULTANT.OTOLARYNGOLOGY SURGEON Work Phone: [facility] 07-17-2021 09:20-0400 Respiratory rate 18 /min Yenny Chin NETWORK RELATIONS CONSULTANT.OTOLARYNGOLOGY SURGEON Work Phone: [facility] 07-17-2021 09:20-0400 SaO2% (BldA) [Mass fraction] 100 % Yenny Chin NETWORK RELATIONS CONSULTANT.OTOLARYNGOLOGY SURGEON Work Phone: [facility] 07-17-2021 09:20-0400 Systolic blood pressure 122 mm[Hg] Yenny Chin NETWORK RELATIONS CONSULTANT.OTOLARYNGOLOGY SURGEON Work Phone: [facility] 07-14-2021 09:23-0400 Body height 177.8 cm Referring Provider Unknown [facility] DO Work Phone: 07-14-2021 09:23-0400 Body mass index (BMI) [Ratio] 30.28 kg/m2 Referring Provider Unknown [facility] DO Work Phone: 07-14-2021 09:23-0400 Body surface area Derived from formula 2.14 m2 Referring Provider Unknown [facility] DO Work Phone: 07-14-2021 09:23-0400 Body weight 95.71 kg Referring Provider Unknown [facility] DO Work Phone: 06-15-2021 07:22-0400 Body height 175.3 cm Yenny Chin NETWORK RELATIONS CONSULTANT.OTOLARYNGOLOGY SURGEON Work Phone: [facility] 06-15-2021 07:22-0400 Body temperature 98.29 [degF] Yenny Chin NETWORK RELATIONS CONSULTANT.OTOLARYNGOLOGY SURGEON Work Phone: [facility] 06-15-2021 07:22-0400 Body weight 95.8 kg Yenny Chin NETWORK RELATIONS CONSULTANT.OTOLARYNGOLOGY SURGEON Work Phone: [facility] 06-15-2021 07:22-0400 Diastolic blood pressure 76 mm[Hg] Yenny Chin NETWORK RELATIONS CONSULTANT.OTOLARYNGOLOGY SURGEON Work Phone: [facility] 06-15-2021 07:22-0400 Heart rate 82 /min Yenny Chin NETWORK RELATIONS CONSULTANT.OTOLARYNGOLOGY SURGEON Work Phone: [facility] 06-15-2021 07:22-0400 Respiratory rate 18 /min Yenny Chin NETWORK RELATIONS CONSULTANT.OTOLARYNGOLOGY SURGEON Work Phone: [facility] 06-15-2021 07:22-0400 SaO2% (BldA) [Mass fraction] 98 % Yenny Neely NETWORK RELATIONS CONSULTANT.OTOLARYNGOLOGY SURGEON Work Phone: [facility] 06-15-2021 07:22-0400 Systolic blood pressure 128 mm[Hg] Yenny Neely NETWORK RELATIONS CONSULTANT.OTOLARYNGOLOGY SURGEON Work Phone: [facility] Encounters Encounter Date Encounter Type Care Provider Facility Start: 03-26-2023 End: 03-26-2023 ambulatory YENNY NEELY Facility:[facility] Start: 03-05-2023 Telephone encounter Yenny Neely NETWORK RELATIONS CONSULTANT.OTOLARYNGOLOGY SURGEON Work Phone: [facility] Procedures Date Procedure Procedure Detail Performing Clinician Start: 01-30-2023 Hemoglobin A1c/Hemoglobin.total in Blood Yenny Neely NETWORK RELATIONS CONSULTANT.OTOLARYNGOLOGY SURGEON Work Phone: Start: 06-21-2022 Hemoglobin A1c/Hemoglobin.total in Blood Yenny Neely NETWORK RELATIONS CONSULTANT.OTOLARYNGOLOGY SURGEON Work Phone: Start: 03-14-2022 Dxa bone density ruben dy 1/> sites axial skel Yenny Neely NETWORK RELATIONS CONSULTANT.OTOLARYNGOLOGY SURGEON Work Phone: Start: 02-20-2022 Brncdilat rspse spmt ry pre&post-brncdilat admn Francisco Montes NETWORK RELATIONS CONSULTANT.OTOLARYNGOLOGY SURGEON Work Phone: Start: 01-23-2022 Mammography Yenny lozano NETWORK RELATIONS CONSULTANT.OTOLARYNGOLOGY SURGEON Work Phone: Start: 01-22-2022 Hemoglobin A1c/Hemoglobin.total in Blood Yenny Neely NETWORK RELATIONS CONSULTANT.OTOLARYNGOLOGY SURGEON Work Phone: Start: 07-17-2021 Hemoglobin A1c/Hemoglobin.total in Blood Yenny Neely NETWORK RELATIONS CONSULTANT.OTOLARYNGOLOGY SURGEON Work Phone: Start: 10-20-2019 Mammography Yenny N agel NETWORK RELATIONS CONSULTANT.OTOLARYNGOLOGY SURGEON Work Phone: Plan of Treatment Date Care Activity Detail Author Start: 07-18-2031 Urine microalbumin profile [facility] Start: 02-22-2024 Screening for malign ant neoplasm of lung Lung Cancer Screening [facility] Start: 01-31-2024 Annual PCP Team Mink Slicer filomena Disease Visit Annual PCP Team Chronic Disease Visit [facility] Start: 01-31-2024 BP Controlled (<130/80) BP Controlle d (<130/80) [facility] Start: 09-15-2023 Influenza vaccination Influenza Vacc ine (#1) [facility] Immunizations Immunization Date Immunization Notes Care Provider Fa cility 07-17-2021 pneumococcal polysaccharide vaccine, 23 valent Yenny Chin NETWORK RELATIONS CONSULTANT.OTOLARYNGOLOGY SURGEON Work Phone: [facility] 07-17-2021 tetanus toxoid, redu loan diphtheria toxoid, and acellular pertussis vaccine, adsorbed Yenny Chin NETWORK RELATIONS CONSULTANT.OTOLARYNGOLOGY SURGEON Work Phone: [facility] 01-13-2018 influenza virus vacc ine, unspecified formulation Yenny Chin NETWORK RELATIONS CONSULTANT.OTOLARYNGOLOGY SURGEON Work Phone: [facility] Payers Date Payer Category Payer Medicaid [id number] 2021 Medicaid [id number] 2021 Medicaid [id number] 2021 Private Health Insurance [employer] A ETNA CHOICE POS II [id number] 2021-Present [phone] [address] [place] [address] POS [id number] 2021 Private Health Insurance [employer] A [employer] CHOICE POS II [id number] 2021-Present [phone] [address] [place] [address] POS [id number] Unknown [employer] Social History Date Type Detail Facility Start: 03-18-1974 End: 02-07-2022 Tobacco smoking status NDIS Smokes tobacco daily [facility] Work Phone: Start: 03-18-1974 End: 06-07-2022 History of tobacco use Cigarette Smoker [facility] Start: 06-15-2021 End: 01-30-2023 Alcohol intake Current non-drinker of alcohol (finding) [facility] Start: 03-15-2015 End: 01-22-2022 Tobacco Comment Not interested in quitting smoking; Amount: 1-9 cigs/day,4 packs per week [facility] Start: 1960 Sex Assigned At Not on file C [facility] Start: 06-04-2021 End: 01-22-2022 Exposure to SARS-CoV-2 (event) Not sure [facility] Start: 09-22-2019 End: 07-23-2022 Cigarettes smoked current (pack per day) - Reported 0.5 [facility] Start: 09-22-2019 End: 06-21-2022 Tobacco use and exposure Smokeless tobacco non-user [facility] Start: 06-21-2022 Tobacco smoking stat us NDIS Ex-smoker [facility] Start: 03-18-1974 End: 06-07-2022 History of tobacco use Current smoker [facility] Start: 10-20-2019 End: 07-23-2022 Tobacco use panel [facility] Adult Depression Screening Assessment 0 [facility] Clinical Notes 12-28-2011 to 03-26-2023 Telephone Encounter - Yenny Neely APRN.CNP - 03/05/2023 12:29 PM ESTTelephone Encounter - Karime Henderson MA - 03/05/2023 8:12 AM Kathie Hurst RT([place]) - 02/21/2023 11:40 AM EST Note Date & Type Note Facility 03-26-2023 Note HNO ID: [id number] Author: FRANCISCO MONTES APRN.OTOLARYNGOLOGY SURGEON Service: ? Author Type: Nurse Practitioner Type: Progress Notes Filed: 03/26/2023 11:03 Note Text: [facility] Lung Cancer Screening Annual Visit Chief Complaint: Established patient in lung cancer screening program here for annual follow-up. Impression / Recommendations Emilia Flynn presents for annual lung cancer screening annual exam and nodule evaluation. Plan: Indeterminate pulmonary nodules: Previously identified nodules appear stable and no new nodules of concern were seen on the exam. Low dose CT Scan to be repeated in one year. Plan subject to change pending final radiology report and recommendations. Nature of the lung nodule(s) and the options for further evaluation discussed in detail with patient. Emilia Flynn expressed understanding and is in agreement with plan. 2. Encounter for screening for malignant neoplasm of respiratory organs I have determined that the patient is eligible for continued low dose CT screening based on age, absence of signs or symptoms of lung cancer, smoking history and total pack years. The patient was counseled on the importance of adherence to annual LDCT lung cancer screening, impact of comorbidities and ability or willingness to undergo diagnosis and treatment. The patient understands and feels comfortable with it: Yes. Six year risk for lung cancer is 5.9%, previously 2.9% 3. Personal History of Nicotine Dependence The patient was counseled on the importance of smoking cessation if current smoker and, if appropriate, offered additional tobacco cessation counseling services - Smoking Cessation Counseling. SMOKING CESSATION COUNSELING Smoking cessation methods including Behavior Modification were discussed with the patient and assistance offered. Pt quit for 7 mos using cold turkey method. She recently restarted smoking and quit today. She states she plans to quit cold turkey again. The medical conditions adversely affected by cigarette use include:COPD, Emphysema, and Lung Cancer. Counseled on benefits of quitting smoking, recommended cessation or reduction to prevent development and/or progression of emphysema. The patient is currently ready to quit. I personally spent 3 minutes in counseling. The time spent in smoking cessation counseling is exclusive of any other counseling during this visit. I spent a total of 32 minutes on the date of the service which included preparing to see the patient, [id number] patient care, completing clinical documentation, performing a medically appropriate examination, counseling and educating the patient/family/caregiver, ordering medications, tests, or procedures, communicating with other HCPs (not separately reported), independently interpreting results (not separately reported), communicating results to the patient/family/caregiver, and care coordination (not separately reported). Francisco Montes APRN.[facility] March 26, 2023 History of Present Illness: Emilia Flynn is a 63 year old female who is presenting today for annual lung cancer screening LDCT and nodule surveillance/management. Patient has one lung nodule found on previous lung cancer screening LDCT. Last CT Chest was performed on 2022 due to unintentional weight loss 10 lbs in 90 days, persistent cough and wheezing. Patient is a current smoker with a 46 pack year history. Patient quit smoking 1 year ago for 7 mos and restarted. She quit again today using cold turkey method. Patient will continue to be eligible for lung cancer screening until age 77. The patient does not have any symptoms or signs of lung cancer. Patient denies SOB with their daily activity. For exercise they always active. No wheezing or dyspnea. Patient denies feeling of chest tightness/congestion in the chest. Patient does not have a new or concerning cough, and denies hemoptysis. Patient does have a chronic daily cough. Denies regular or recent fevers/chills. Patient does not have any significant unintentional weight loss. Patient denies having any respiratory infections or COVID-19 in the past few months. Does not use any maintenance inhaler for COPD. Pt mother 81 yo was recently diagnosed with stage IV lung cancer. She was a remote smoker quit over 40 years ago. Modified [employer] [place] Dyspnea Scale (MMRC) I only get breathless with strenous exercise 0 Last 12 Encounter Wt Readings: Date: Wt: 01/30/2023 88.5 kg (195 lb) 07/23/2022 90.4 kg (199 lb 6.4 oz) 06/21/2022 91.5 kg (201 lb 12.8 oz) 04/17/2022 89.5 kg (197 lb 6.4 oz) 02/23/2022 88.9 kg (196 lb) 02/07/2022 88.9 kg (196 lb) 01/22/2022 89.8 kg (198 lb) 08/08/2021 91.6 kg (202 lb) 07/17/2021 96.1 kg (211 lb 12.8 oz) 06/15/2021 95.8 kg (211 lb 3.2 (more content not included)... [facility] 03-05-2023 Miscellaneous Notes This has already been completed ----- Message from Karime Henderson MA sent at 03/05/2022 3:12 PM EST ----- Please place one year follow up CT lung screening for lung nodule Karime Henderson MA documented in this encounter [facility] 02-21-2023 Note HNO ID: [id number] Author: Kathie Mendes RT(R) Service: ? Author Type: Supervisor Mapping Type: Progress Notes Filed: 02/21/2023 3:14 PM Note Text: Radiology Service Progress Note PATIENT NAME: Emilia Flynn DATE OF SERVICE: February 21, 2023 TIME: 3:14 PM PATIENT IDENTITY VERIFICATION COMPLETED USING TWO (2) IDENTIFIERS: Name and Date of confirmed by patient verbally. FALL SCREENING: Has the patient had 2 falls in the last year or 1 fall with injury or currently using an Ambulatory Assistive Device (Walker, Cane, Wheelchair, Crutches, etc.)? No PATIENT GENDER DATA: Female. status: : No status: NO. PATIENT RELEVANT IMPLANT DATA REVIEWED: Yes RADIOLOGY DEPARTMENT: CT; Exam(s) Completed: Chest PERIPHERAL IV DATA: Not applicable SIGNED BY: RT Gita(R) February 21, 2023 3:14 PM [facility] 02-21-2023 History of Present illness Narrative Radiology Service Progress Note PATIENT NAME: Emilia Flynn DATE OF SERVICE: February 21, 2023 TIME: 3:14 PM PATIENT IDENTITY VERIFICATION COMPLETED USING TWO (2) IDENTIFIERS: Name and Date of confirmed by patient verbally. FALL SCREENING: Has the patient had 2 falls in the last year or 1 fall with injury or currently using an Ambulatory Assistive Device (Walker, Cane, Wheelchair, Crutches, etc.)? No PATIENT GENDER DATA: Female. status: : No status: NO. PATIENT RELEVANT IMPLANT DATA REVIEWED: Yes RADIOLOGY DEPARTMENT: CT; Exam(s) Completed: Chest PERIPHERAL IV DATA: Not applicable SIGNED BY: RT Gita(R) February 21, 2023 3:14 PM documented in this encounter [facility] 01-30-2023 Note HNO ID: [id number] Author: Yenny Neely APRN.OTOLARYNGOLOGY SURGEON Service: ? Author Type: Nurse Practitioner Type: Progress Notes Filed: 01/30/2023 10:49 AM Note Text: SUBJECTIVE: Emilia Flynn is a 62 year old female who presents in follow up of DM, HTN and Hyperlipidemia. PMH insomnia, chronic pain, anxiety, depression, Right TKR 07/03/22. Patient denies changes in health since last office visit. Reports feeling well. Denies concerns or complaints today. I reviewed her past medical, surgical, social, and family histories today and updated chart. Allergies, chronic medications, and supplements were also reviewed and her list is now up to date. DIABETES MELLITUS: Ms. Enrique Flynn was last seen on 07/23/22. Since our last visit she denies excessive thirst or increased frequency of urination, chest pain or dyspnea , numbness, tingling or pain in extremities, new or unusual visual symptoms, low sugar/hypoglycemic reactions, weight loss/gain, lightheadedness/dizziness, and bowel changes/loose stools. Follows a diabetic diet some of the time. She is compliant with medication(s) and is tolerating med(s) without any side effects. She reports checking her glucose on a weekly schedule with sugars in the 89-135 range. She is taking metformin 500 mg twice daily. Patient's last HgA1C was Hemoglobin A1C (%) Date Value 12/17/2016 7.0 06/15/2016 6.9 Hemoglobin A1C (POCT) (%) Date Value 01/30/2023 7.1 06/21/2022 7.0 ) Last Ophthalmology exam was 01/2022 at [facility] and was negative for Diabetic Retinopathy. She is aware she is due. HTN: Ms. Enrique Flynn indicates that she is feeling well and denies any symptoms referable to elevated blood pressure. Specifically denies headache, chest pain, palpitations, dyspnea, peripheral edema, claudication symptoms, orthopnea, fatigue, and PND. Patient denies any side effects of her medication(s) and is compliant with their regimen. She does not check BP's generally. Emilia denies regular aerobic exercise. She watches her diet for sodium, low fat and low cholesterol some of the time. She is taking norvasc 5 mg daily and HCTZ 25 mg daily. Last 3 Encounter BP Readings: Date: BP: 01/30/2023 122/70 07/23/2022 120/62 06/21/2022 128/78 CMP: Glucose 144 07/19/2021 BUN 16 07/19/2021 Creatinine 0.72 07/19/2021 Sodium 139 07/19/2021 Potassium 3.9 07/19/2021 Chloride 100 07/19/2021 CO2 26 07/19/2021 Protein, Total 7.3 07/19/2021 Albumin 4.5 07/19/2021 Calcium 9.7 07/19/2021 Alkaline Phosphatase 75 07/19/2021 Bilirubin, Total 0.5 07/19/2021 AST 23 07/19/2021 ALT 24 07/19/2021 Hyperlipidemia. Ms. Enrique Flynn reports doing well on current therapy of diet. Reports side effect(s) of muscle achiness, weakness, and leg cramps. Her most recent lipid panels are: Cholesterol, Total (mg/dL) Date Value 07/23/2022 174 07/19/2021 173 02/18/2019 187 01/20/2018 152 HDL Cholesterol (mg/dL) Date Value 07/23/2022 65 07/19/2021 59 02/18/2019 71 01/20/2018 55 LDL Cholesterol (mg/dL) Date Value 07/23/2022 83 07/19/2021 96 LDL (mg/dL) Date Value 02/18/2019 99 01/20/2018 87 Triglyceride (mg/dL) Date Value 07/23/2022 129 07/19/2021 88 02/18/2019 83 01/20/2018 52 Chronic pain: knees, feet, shoulder. She is taking naproxen daily for management. She also applies topical lidocaine which helps. Anxiety, depression, insomnia: pt reports all 3 are well controlled. 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 Preventative: she is up to date with pneumonia and tetanus vaccine. Declines flu and COVID vaccines. She smokes marijuana daily. She does not exercise. She is not interested in colonoscopy. She is interested in cologuard. She quit smoking 06/16/22. She is in lung cancer screening program for lung nodules Some elements of above documentation were copied from my progress note of 07/23/22 and have been reexamined and updated where appropriate. All elements reflect the current assessment and medical decision making today . PAST MEDICAL HISTORY Diagnosis Date Abdominal bloating Abnormal mammography Anxiety Asthma mild intermittent Body mass index 30.0-30.9, adult Breast lump left Chest wall pain Chronic depression Chronic pain Degeneration of cervical intervertebral disc Depressive disorder Dysmenorrhea Edema Essential hypertension h/o suicide attempt FH: cardiovascular disease Fibromyalgia Foot pain [place] (generalized anxiety disorder) GERD (gastroesophageal reflux disease) Heel pain left heel spur, see xray from 01/13/10 Hyperglycemia Hyperlipemia Hypertriglyceridemia IBS (irritable bowel syndrome) Low back pain Lumbar stenosis Lumbar spondylolysis L4-L5; MRI 12/2005 Menometrorrhagia Menopausal flushing Migraine Muscle pain Myalgia and myositis Narcotic drug use Obesity Opioid abuse (HCC) Osteoarthritis (more content not included)... [facility] 01-30-2023 History of Present illness Narrative SUBJECTIVE: Emilia Flynn is a 62 year old female who presents in follow up of DM, HTN and Hyperlipidemia. PMH insomnia, chronic pain, anxiety, depression, Right TKR 07/03/22. Patient denies changes in health since last office visit. Reports feeling well. Denies concerns or complaints today. I reviewed her past medical, surgical, social, and family histories today and updated chart. Allergies, chronic medications, and supplements were also reviewed and her list is now up to date. DIABETES MELLITUS: Ms. Enrique Flynn was last seen on 07/23/22. Since our last visit she denies excessive thirst or increased frequency of urination, chest pain or dyspnea , numbness, tingling or pain in extremities, new or unusual visual symptoms, low sugar/hypoglycemic reactions, weight loss/gain, lightheadedness/dizziness, and bowel changes/loose stools. Follows a diabetic diet some of the time. She is compliant with medication(s) and is tolerating med(s) without any side effects. She reports checking her glucose on a weekly schedule with sugars in the 89-135 range. She is taking metformin 500 mg twice daily. Patient's last HgA1C was Hemoglobin A1C (%) Date Value 12/17/2016 7.0 06/15/2016 6.9 Hemoglobin A1C (POCT) (%) Date Value 01/30/2023 7.1 06/21/2022 7.0 ) Last Ophthalmology exam was 01/2022 at [facility] and was negative for Diabetic Retinopathy. She is aware she is due. HTN: Ms. Enrique Flynn indicates that she is feeling well and denies any symptoms referable to elevated blood pressure. Specifically denies headache, chest pain, palpitations, dyspnea, peripheral edema, claudication symptoms, orthopnea, fatigue, and PND. Patient denies any side effects of her medication(s) and is compliant with their regimen. She does not check BP's generally. Emilia denies regular aerobic exercise. She watches her diet for sodium, low fat and low cholesterol some of the time. She is taking norvasc 5 mg daily and HCTZ 25 mg daily. Last 3 Encounter BP Readings: Date: BP: 01/30/2023 122/70 07/23/2022 120/62 06/21/2022 128/78 CMP: Glucose 144 07/19/2021 BUN 16 07/19/2021 Creatinine 0.72 07/19/2021 Sodium 139 07/19/2021 Potassium 3.9 07/19/2021 Chloride 100 07/19/2021 CO2 26 07/19/2021 Protein, Total 7.3 07/19/2021 Albumin 4.5 07/19/2021 Calcium 9.7 07/19/2021 Alkaline Phosphatase 75 07/19/2021 Bilirubin, Total 0.5 07/19/2021 AST 23 07/19/2021 ALT 24 07/19/2021 Hyperlipidemia. Ms. Enrique Flynn reports doing well on current therapy of diet. Reports side effect(s) of muscle achiness, weakness, and leg cramps. Her most recent lipid panels are: Cholesterol, Total (mg/dL) Date Value 07/23/2022 174 07/19/2021 173 02/18/2019 187 01/20/2018 152 HDL Cholesterol (mg/dL) Date Value 07/23/2022 65 07/19/2021 59 02/18/2019 71 01/20/2018 55 LDL Cholesterol (mg/dL) Date Value 07/23/2022 83 07/19/2021 96 LDL (mg/dL) Date Value 02/18/2019 99 01/20/2018 87 Triglyceride (mg/dL) Date Value 07/23/2022 129 07/19/2021 88 02/18/2019 83 01/20/2018 52 Chronic pain: knees, feet, shoulder. She is taking naproxen daily for management. She also applies topical lidocaine which helps. Anxiety, depression, insomnia: pt reports all 3 are well controlled. 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 Preventative: she is up to date with pneumonia and tetanus vaccine. Declines flu and COVID vaccines. She smokes marijuana daily. She does not exercise. She is not interested in colonoscopy. She is interested in cologuard. She quit smoking 06/16/22. She is in lung cancer screening program for lung nodules Some elements of above documentation were copied from my progress note of 07/23/22 and have been reexamined and updated where appropriate. All elements reflect the current assessment and medical decision making today . PAST MEDICAL HISTORY Diagnosis Date Abdominal bloating Abnormal mammography Anxiety Asthma mild intermittent Body mass index 30.0-30.9, adult Breast lump left Chest wall pain Chronic depression Chronic pain Degeneration of cervical intervertebral disc Depressive disorder Dysmenorrhea Edema Essential hypertension h/o suicide attempt FH: cardiovascular disease Fibromyalgia Foot pain [place] (generalized anxiety disorder) GERD (gastroesophageal reflux disease) Heel pain left heel spur, see xray from 01/13/10 Hyperglycemia Hyperlipemia Hypertriglyceridemia IBS (irritable bowel syndrome) Low back pain Lumbar stenosis Lumbar spondylolysis L4-L5; MRI 12/2005 Menometrorrhagia Menopausal flushing Migraine Muscle pain Myalgia and myositis Narcotic drug use Obesity Opioid abuse (HCC) Osteoarthritis (arthritis due to wear and tear of joints) Lumbar, Left foot, Right hip Periodic edema Primary fibromyalgia syndrome Spinal stenosis Spinal stenosis of lumbar region L4-L5; MRI 12/2005 Spinal stenosis of lumbar region without neurogenic claudication Tobacco dependence syndrome Trochanteric bursitis Type 2 diabetes mellitus (HCC) PAST SURGICAL HISTORY Procedure Laterality Date APPENDECTOMY KNEE LEFT OP SURGERY 01/24/2018 KNEE RIGHT OP SURGERY 07/22/2018 LIG/TRNSXJ FLP TUBE ABDL/VAG APPR UNI/BI Dr. Erin Werner PAST SURGICAL HISTORY OF ovarian cyst- right side at age 28 yo TONSILLECTOMY AND ADENOIDECTOMY HX TREAT ECTOPIC Social History Tobacco Use Smoking status: Former Packs/day: 1.00 Years: 46.00 Additional pack years: 0.00 Total pack years: 46.00 Types: Cigarettes Start date: 03/18/1974 Quit date: 06/07/2022 Years since quittin.6 Smokeless tobacco: Never Tobacco comments: Not interested in quitting smoking; Amount: 1-9 cigs/day,4 packs per week Vaping Use Vaping Use: Never used Substance Use Topics Alcohol use: No Drug use: Yes Types: Marijuana Comment: medical marijuana,, marijuana, and prescription drugs; Clean for 6 years ALLERGIES Allergen Reactions Aspirin GI Upset Latex Rash Vicodin [Hydrocodon* Hives Patient states she now tolerates hydrocodone 07/2018 Current Outpatient Medications Medication Sig hydrOXYzine HCl (ATARAX) 25 mg tablet Take 1 (ONE) tablet by mouth three times daily as needed (for itching) loratadine (CLARITIN) 10 mg tablet Take 1 tablet by mouth once daily. albuterol HFA (PROVENTIL HFA, VENTOLIN HFA) 90 mcg/actuation inhaler Inhale 2 Puffs as instructed every 4 hours as needed. cyclobenzaprine (FLEXERIL) 10 mg tablet TAKE 1/2 (ONE-HALF) OF A TABLET BY MOUTH EVERY 8 HOURS NEEDED for MUSCLE spasms or FOR PAIN for up to 5 days. benzonatate (TESSALON PERLES) 100 mg capsule Take 1 capsule by mouth three times daily as needed for cough. amLODIPine (NORVASC) 5 mg tablet Take 1 tablet by mouth once daily. hydroCHLOROthiazide (HYDRODIURIL, ESIDRIX) 25 mg tablet Take 1 tablet by mouth once daily. metFORMIN (GLUCOPHAGE) 500 mg tablet Take 1 tablet by mouth twice daily with meals. lidocaine (XYLOCAINE) 5 % ointment APPLY TO THE AFFECTED AREA(S) NEEDED No current facility-administered medications for this visit. Review of Systems Constitutional: Negative for chills, diaphoresis, fever, malaise/fatigue and weight loss. HENT: Positive for congestion. Negative for ear pain, sore throat and tinnitus. Eyes: Negative for blurred vision, double vision, photophobia and pain. Respiratory: Positive for cough. Negative for sputum production, shortness of breath and wheezing. URI x2 wks. Reports improving Cardiovascular: Negative for chest pain, palpitations, orthopnea and leg swelling. Gastrointestinal: Negative for abdominal pain, blood in stool, constipation, diarrhea, heartburn, melena, nausea and vomiting. Genitourinary: Negative for dysuria, frequency, hematuria and urgency. Musculoskeletal: Negative for back pain, falls, joint pain, myalgias and neck pain. Skin: Negative for itching and rash. Neurological: Negative for dizziness, tingling, tremors, sensory change, speech change, focal weakness, weakness and headaches. Endo/Heme/Allergies: Negative for environmental allergies and polydipsia. Does not bruise/bleed easily. Psychiatric/Behavioral: Negative for depression and substance abuse. The patient is not nervous/anxious and does not have insomnia. BP 122/70 Pulse 93 Temp (Src) 98.2 (Oral) Resp 18 Ht 5' 9 (1.75m) Wt 195 lb (88.5kg) SpO2 97% BMI 28.78 kg/(m^2). Physical Exam Vitals and nursing note reviewed. Constitutional: General: She is not in acute distress. Appearance: Normal appearance. She is not diaphoretic. HENT: Head: Normocephalic and atraumatic. Right Ear: External ear normal. Left Ear: External ear normal. Nose: Nose normal. Mouth/Throat: Pharynx: No oropharyngeal exudate. Eyes: General: Lids are normal. No scleral icterus. Right eye: No discharge. Left eye: No discharge. Conjunctiva/sclera: Conjunctivae normal. Pupils: Pupils are equal, round, and reactive to light. Neck: Vascular: Normal carotid pulses. No carotid bruit. Cardiovascular: Rate and Rhythm: Normal rate and regular rhythm. Pulses: Normal pulses. Heart sounds: Normal heart sounds, S1 normal and S2 normal. No murmur heard. No friction rub. No gallop. Pulmonary: Effort: Pulmonary effort is normal. No accessory muscle usage or respiratory distress. Breath sounds: Normal breath sounds. No decreased breath sounds, wheezing, rhonchi or rales. Chest: Chest wall: No tenderness. Abdominal: General: Bowel sounds are normal. There is no distension. Palpations: Abdomen is soft. Tenderness: There is no abdominal tenderness. Musculoskeletal: General: No tenderness. Normal range of motion. Cervical back: Normal range of motion and neck supple. Skin: General: Skin is warm and dry. Coloration: Skin is not pale. Findings: No erythema or rash. Nails: There is no clubbing. Neurological: Mental Status: She is alert and oriented to person, place, and time. Sensory: Sensation is intact. Motor: Motor function is intact. No abnormal muscle tone. Coordination: Coordination normal. Gait: Gait is intact. Deep Tendon Reflexes: Reflexes are normal and symmetric. Psychiatric: Mood and Affect: Mood and affect normal. Cognition and Memory: Memory normal. Judgment: Judgment normal. Component Latest Ref Rng & Units 07/19/2021 01/22/2022 03/28/2022 06/21/2022 07/23/2022 01/30/2023 Protein, Total 6.3 - 8.0 g/dL 7.3 Albumin 3.9 - 4.9 g/dL 4.5 Calcium 8.5 - 10.2 mg/dL 9.7 Bilirubin, Total 0.2 - 1.3 mg/dL 0.5 Alkaline Phosphatase 34 - 123 U/L 75 AST 13 - 35 U/L 23 ALT 7 - 38 U/L 24 Glucose 74 - 99 mg/dL 144 (H) BUN 7 - 21 mg/dL 16 Creatinine 0.58 - 0.96 mg/dL 0.72 Sodium 136 - 144 mmol/L 139 Potassium 3.7 - 5.1 mmol/L 3.9 Chloride 97 - 105 mmol/L 100 CO2 22 - 30 mmol/L 26 Anion Gap 9 - 18 mmol/L 13 eGFR >=60 mL/min/1.73m 95 Cholesterol, Total <200 mg/dL 173 174 Triglyceride <150 mg/dL 88 129 HDL Cholesterol >39 mg/dL 59 65 Non HDL Cholesterol <130 mg/dL 114 109 Fasting Time hrs 12 12 VLDL Cholesterol <30 mg/dL 18 26 TC:HDL Ratio <5.10 2.93 2.68 LDL Cholesterol <100 mg/dL 96 83 LDL:HDL Ratio <2.54 1.63 1.28 Creatinine, Ur Random (UCRR) 42.2 - 237.9 mg/dL 62.1 Albumin, Urine Random mg/L <12.0 Albumin/Creat Ratio <30 mg/g <19 Hemoglobin A1C (POCT) 4.2 - 5.6 % 7.0 (A) 7.0 (A) 7.1 (A) Vitamin D 25 Hydroxy >=30.0 ng/mL 30.5 BMP 06/2022 Office Visit on 01/30/2023 Component Date Value Ref Range Status Hemoglobin A1C (POCT) 01/30/2023 7.1 (A) 4.2 - 5.6 % Final Comment: Location:[facility], [address] [place] [address], [facility] Point of care (POC) Hemoglobin A1c (HGBA1C) testing is intended to assess glucose control and provide a management tool for patients known to have diabetes and their healthcare providers. Target HGBA1C levels may depend on specific clinical circumstances. POC HGBA1C is not intended for use as a diagnostic or screening test; laboratory-based testing should be used for diagnostic purposes. The following information is supplemental and may not be applicable to specific diabetes management situations: The POC device lead rider provides a normal range of 4.2% to 6.5% for the HGBA1C POC test. However, the [place] [employer] guidelines indicate that patients with HGBA1C in the range of 5.7% to 6.4% are at increased risk for development of diabetes and that intervention by lifestyle modification may be beneficial. A HGBA1C level greater than or equal to 6.5% is considered diagnostic of diabetes, pending confirmatory testing. Use of HGBA1C testing to evaluate glucose control may not be appropriate for patients with hemoglobin variants or other conditions (e.g. anemia) that alter red blood cell lifespan. ASSESSMENT/PLAN: 1. Type 2 diabetes mellitus without complication, without long-term current use of insulin (HCC) - ICD9: 250.00, ICD10: E11.9 (primary diagnosis) - Stable - Continue current medications - Counseled on healthy diet and regular exercise - Discussed need for and benefit of weight loss. BMI 28.80 kg/(m^2) - Discussed diabetic education issues of diabetes complications and monitoring required, hypoglycemic/hyperglycemic symptoms, medication-specific side effects and monitoring, and diabetic sick day rules - HEMOGLOBIN A1C (POC) - METFORMIN 500 MG TABLET - CBC - COMP METABOLIC PANEL - LIPID PANEL BASIC - ALBUMIN/CREAT RATIO RND UR 2. Essential hypertension - ICD9: 401.9, ICD10: I10 - Controlled - Continue current medications - Recommend home blood pressure monitoring, to bring results to next visit - Encouraged sodium restriction, DASH or Mediterranean diet - Recommend regular aerobic exercise - Discussed need for and benefit of weight loss. BMI 28.80 kg/(m^2) - Reviewed risks of hypertension and principles of treatment - HYDROCHLOROTHIAZIDE 25 MG TABLET - AMLODIPINE 5 MG TABLET - CBC - COMP METABOLIC PANEL 3. Anxiety and depression - ICD9: 300.00, 311, ICD10: F41.9, F32.A - Chronic stable - continue hydroxyzine as needed 4. Screening for lipid disorders - ICD9: V77.91, ICD10: Z13.220 - LIPID PANEL BASIC 5. Acute cough - ICD9: 786.2, ICD10: R05.1 - acute improved - BENZONATATE 100 MG CAPSULE All of the above discussed with the patient in detail. Patient is in agreement with the above plan. Yenny Neely APRN.OTOLARYNGOLOGY SURGEON documented in this encounter [facility] 01-08-2023 Miscellaneous Notes Last OV 07/23/22 Apt 01/30/23 Pharmacy calls in requesting the following refill(s): Requested Prescriptions Pending Prescriptions Disp Refills hydrOXYzine HCl (ATARAX) 25 mg tablet [Pharmacy Med Name: hydroxyzine HCl 25 mg tablet] 60 tablet 1 Sig: Take 1 (ONE) tablet by mouth three times daily as needed (for itching) Karime Henderson MA documented in this encounter [facility] 01-03-2023 Miscellaneous Notes Order for mammogram placed. documented in this encounter [facility] 07-24-2022 Miscellaneous Notes Called pt let her know the results Karime Henderson MA ----- Message from Yenny Neely APRN.OTOLARYNGOLOGY SURGEON sent at 07/23/2022 1:18 PM EDT ----- Lipids are good. ----- Message from Yenny Neely APRN.OTOLARYNGOLOGY SURGEON sent at 07/24/2022 6:49 AM EDT ----- Urine micro wnl documented in this encounter [facility] 07-23-2022 Note HNO ID: [id number] Author: Yenny Neely APRN.OTOLARYNGOLOGY SURGEON Service: ? Author Type: Nurse Practitioner Type: Progress Notes Filed: 07/23/2022 10:52 AM Note Text: SUBJECTIVE: Emilia Flynn is a 62 year old female who presents in follow up of DM, HTN and Hyperlipidemia. PMH insomnia, chronic pain, anxiety, depression. Patient had right TKR 07/03/22. Reports feeling well. She is getting PT at home. Denies concerns or complaints today. Rates pain right knee 07/25. She is taking oxycodone daily for pain. She is working with her surgeon on weaning down on her opiates. She has hx of drug abuse. I reviewed her past medical, surgical, social, and family histories today and updated chart. Allergies, chronic medications, and supplements were also reviewed and her list is now up to date. DIABETES MELLITUS: Ms. Enrique Flynn was last seen on 01/22/22. Since our last visit she denies excessive thirst or increased frequency of urination, chest pain or dyspnea , numbness, tingling or pain in extremities, new or unusual visual symptoms, low sugar/hypoglycemic reactions, weight loss/gain, lightheadedness/dizziness, and bowel changes/loose stools. Follows a diabetic diet most of the time. She is compliant with medication(s) and is tolerating med(s) without any side effects. She reports checking her glucose on a infrequent to not at all basis schedule. Prior to hospital for surgery she was 90-120s. She is taking metformin 500 mg twice daily. Patient's last HgA1C was Hemoglobin A1C (%) Date Value 12/17/2016 7.0 06/15/2016 6.9 Hemoglobin A1C (POCT) (%) Date Value 06/21/2022 7.0 01/22/2022 7.0 ) Last Ophthalmology exam was in 02/06 at [facility] and was negative for Diabetic Retinopathy HTN: Ms. Enrique Flynn indicates that she is feeling well and denies any symptoms referable to elevated blood pressure. Specifically denies headache, chest pain, palpitations, dyspnea, peripheral edema, claudication symptoms, orthopnea, fatigue, and PND. Patient denies any side effects of her medication(s) and is compliant with their regimen. She does not check BP's generally. Emilia denies regular aerobic exercise. She watches her diet for sodium, low fat and low cholesterol most of the time. She is taking HCTZ 25 mg dailyand norvasc 5 mg daily. Last 3 Encounter BP Readings: Date: BP: 06/21/2022 128/78 04/17/2022 128/78 02/23/2022 146/76 CMP: Glucose 144 07/19/2021 BUN 16 07/19/2021 Creatinine 0.72 07/19/2021 Sodium 139 07/19/2021 Potassium 3.9 07/19/2021 Chloride 100 07/19/2021 CO2 26 07/19/2021 Protein, Total 7.3 07/19/2021 Albumin 4.5 07/19/2021 Calcium 9.7 07/19/2021 Alkaline Phosphatase 75 07/19/2021 Bilirubin, Total 0.5 07/19/2021 AST 23 07/19/2021 ALT 24 07/19/2021 Hyperlipidemia. Ms. Enrique Flynn reports doing well on current therapy of diet and exercise. Reports side effect(s) of muscle achiness, weakness, and leg cramps with statin. Her most recent lipid panels are: Cholesterol, Total (mg/dL) Date Value 07/19/2021 173 06/20/2020 180 02/18/2019 187 01/20/2018 152 HDL Cholesterol (mg/dL) Date Value 07/19/2021 59 06/20/2020 59 02/18/2019 71 01/20/2018 55 LDL Cholesterol (mg/dL) Date Value 07/19/2021 96 06/20/2020 102 LDL (mg/dL) Date Value 02/18/2019 99 01/20/2018 87 Triglyceride (mg/dL) Date Value 07/19/2021 88 06/20/2020 96 02/18/2019 83 01/20/2018 52 Chronic pain: knees, feet, shoulder. She is taking naproxen daily for management. She also applies topical lidocaine which helps. Anxiety, depression, insomnia: pt reports all 3 are well controlled. 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 Preventative: she is up to date with pneumonia and tetanus vaccine. Declines flu and COVID vaccines. She smokes marijuana daily. She does not exercise. She is not interested in colonoscopy. She is interested in cologuard. She quit smoking 06/16/22. she is interested in lung cancer screening. Some elements of above documentation were copied from my progress note of 01/22/22 and have been reexamined and updated where appropriate. All elements reflect the current assessment and medical decision making today . PAST MEDICAL HISTORY Diagnosis Date Abdominal bloating Abnormal mammography Anxiety Asthma mild intermittent Body mass index 30.0-30.9, adult Breast lump left Chest wall pain Chronic depression Chronic pain Degeneration of cervical intervertebral disc Depressive disorder Dysmenorrhea Edema Essential hypertension h/o suicide attempt FH: cardiovascular disease Fibromyalgia Foot pain [place] (generalized anxiety disorder) GERD (gastroesophageal reflux disease) Heel pain left heel spur, see xray from 01/13/10 Hyperglycemia Hyperlipemia Hypertriglyceridemia IBS (irritable bowel syndrome) Low back pain Lumbar stenosis Lumbar spondylolysis L4-L5; (more content not included)... [facility] 07-23-2022 Instructions Yenny Neely APRN.OTOLARYNGOLOGY SURGEON - 07/23/2022 9:32 AM EDT ASSESSMENT/PLAN: 1. Type 2 diabetes mellitus without complication, without long-term current use of insulin (HCC) - ICD9: 250.00, ICD10: E11.9 (primary diagnosis) - Controlled - Continue current medications - Counseled on healthy diet and regular exercise - Discussed need for and benefit of weight loss. BMI 29.45 kg/(m^2) - Follow up in 6 months, sooner should any other issues arise. - ALBUMIN/CREAT RATIO RND UR 2. Essential hypertension - ICD9: 401.9, ICD10: I10 - good control - Continue current medication(s) - Encouraged dietary sodium restriction/DASH diet - Recommended regular aerobic exercise. - Recommend home blood pressure monitoring, to bring results in on next visit - Discussed need and benefit for weight loss. - Reviewed risks of HTN and principles of treatment - Goal of BP <130/80 - Recommended no refined sugar, low refined starch, healthy oil intake (olive oil), healthy protein (fish) along the lines of the Mediterranean diet. 3. Anxiety and depression - ICD9: 300.00, 311, ICD10: F41.9, F32.A - chronic, stable. - continue hydroxyzine as needed for anxiety 4. Other chronic pain - ICD9: 338.29, ICD10: G89.29 - Chronic stable. 5. Screening for lipid disorders - ICD9: V77.91, ICD10: Z13.220 - LIPID PANEL BASIC 6. Colon cancer screening - ICD9: V76.51, ICD10: Z12.11 - COLOGUARD documented in this encounter [facility] 07-23-2022 History of Present illness Narrative SUBJECTIVE: Emilia Flynn is a 62 year old female who presents in follow up of DM, HTN and Hyperlipidemia. PMH insomnia, chronic pain, anxiety, depression. Patient had right TKR 07/03/22. Reports feeling well. She is getting PT at home. Denies concerns or complaints today. Rates pain right knee 07/25. She is taking oxycodone daily for pain. She is working with her surgeon on weaning down on her opiates. She has hx of drug abuse. I reviewed her past medical, surgical, social, and family histories today and updated chart. Allergies, chronic medications, and supplements were also reviewed and her list is now up to date. DIABETES MELLITUS: Ms. Enrique Flynn was last seen on 01/22/22. Since our last visit she denies excessive thirst or increased frequency of urination, chest pain or dyspnea , numbness, tingling or pain in extremities, new or unusual visual symptoms, low sugar/hypoglycemic reactions, weight loss/gain, lightheadedness/dizziness, and bowel changes/loose stools. Follows a diabetic diet most of the time. She is compliant with medication(s) and is tolerating med(s) without any side effects. She reports checking her glucose on a infrequent to not at all basis schedule. Prior to hospital for surgery she was 90-120s. She is taking metformin 500 mg twice daily. Patient's last HgA1C was Hemoglobin A1C (%) Date Value 12/17/2016 7.0 06/15/2016 6.9 Hemoglobin A1C (POCT) (%) Date Value 06/21/2022 7.0 01/22/2022 7.0 ) Last Ophthalmology exam was in 02/06 at [facility] and was negative for Diabetic Retinopathy HTN: Ms. Enrique Flynn indicates that she is feeling well and denies any symptoms referable to elevated blood pressure. Specifically denies headache, chest pain, palpitations, dyspnea, peripheral edema, claudication symptoms, orthopnea, fatigue, and PND. Patient denies any side effects of her medication(s) and is compliant with their regimen. She does not check BP's generally. Emilia denies regular aerobic exercise. She watches her diet for sodium, low fat and low cholesterol most of the time. She is taking HCTZ 25 mg dailyand norvasc 5 mg daily. Last 3 Encounter BP Readings: Date: BP: 06/21/2022 128/78 04/17/2022 128/78 02/23/2022 146/76 CMP: Glucose 144 07/19/2021 BUN 16 07/19/2021 Creatinine 0.72 07/19/2021 Sodium 139 07/19/2021 Potassium 3.9 07/19/2021 Chloride 100 07/19/2021 CO2 26 07/19/2021 Protein, Total 7.3 07/19/2021 Albumin 4.5 07/19/2021 Calcium 9.7 07/19/2021 Alkaline Phosphatase 75 07/19/2021 Bilirubin, Total 0.5 07/19/2021 AST 23 07/19/2021 ALT 24 07/19/2021 Hyperlipidemia. Ms. Enrique Flynn reports doing well on current therapy of diet and exercise. Reports side effect(s) of muscle achiness, weakness, and leg cramps with statin. Her most recent lipid panels are: Cholesterol, Total (mg/dL) Date Value 07/19/2021 173 06/20/2020 180 02/18/2019 187 01/20/2018 152 HDL Cholesterol (mg/dL) Date Value 07/19/2021 59 06/20/2020 59 02/18/2019 71 01/20/2018 55 LDL Cholesterol (mg/dL) Date Value 07/19/2021 96 06/20/2020 102 LDL (mg/dL) Date Value 02/18/2019 99 01/20/2018 87 Triglyceride (mg/dL) Date Value 07/19/2021 88 06/20/2020 96 02/18/2019 83 01/20/2018 52 Chronic pain: knees, feet, shoulder. She is taking naproxen daily for management. She also applies topical lidocaine which helps. Anxiety, depression, insomnia: pt reports all 3 are well controlled. 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 Preventative: she is up to date with pneumonia and tetanus vaccine. Declines flu and COVID vaccines. She smokes marijuana daily. She does not exercise. She is not interested in colonoscopy. She is interested in cologuard. She quit smoking 06/16/22. she is interested in lung cancer screening. Some elements of above documentation were copied from my progress note of 01/22/22 and have been reexamined and updated where appropriate. All elements reflect the current assessment and medical decision making today . PAST MEDICAL HISTORY Diagnosis Date Abdominal bloating Abnormal mammography Anxiety Asthma mild intermittent Body mass index 30.0-30.9, adult Breast lump left Chest wall pain Chronic depression Chronic pain Degeneration of cervical intervertebral disc Depressive disorder Dysmenorrhea Edema Essential hypertension h/o suicide attempt FH: cardiovascular disease Fibromyalgia Foot pain [place] (generalized anxiety disorder) GERD (gastroesophageal reflux disease) Heel pain left heel spur, see xray from 01/13/10 Hyperglycemia Hyperlipemia Hypertriglyceridemia IBS (irritable bowel syndrome) Low back pain Lumbar stenosis Lumbar spondylolysis L4-L5; MRI 12/2005 Menometrorrhagia Menopausal flushing Migraine Muscle pain Myalgia and myositis Narcotic drug use Obesity Opioid abuse (HCC) Osteoarthritis (arthritis due to wear and tear of joints) Lumbar, Left foot, Right hip Periodic edema Primary fibromyalgia syndrome Spinal stenosis Spinal stenosis of lumbar region L4-L5; MRI 12/2005 Spinal stenosis of lumbar region without neurogenic claudication Tobacco dependence syndrome Trochanteric bursitis Type 2 diabetes mellitus (HCC) PAST SURGICAL HISTORY Procedure Laterality Date APPENDECTOMY KNEE LEFT OP SURGERY 01/24/2018 KNEE RIGHT OP SURGERY 07/22/2018 LIG/TRNSXJ FLP TUBE ABDL/VAG APPR UNI/BI Dr. Erin Werner PAST SURGICAL HISTORY OF ovarian cyst- right side at age 28 yo TONSILLECTOMY AND ADENOIDECTOMY HX TREAT ECTOPIC Social History Tobacco Use Smoking status: Former Packs/day: 1.00 Years: 46.00 Pack years: 46.00 Types: Cigarettes Start date: 03/18/1974 Quit date: 06/07/2022 Years since quittin.1 Smokeless tobacco: Never Tobacco comments: Not interested in quitting smoking; Amount: 1-9 cigs/day,4 packs per week Vaping Use Vaping Use: Never used Substance Use Topics Alcohol use: No Drug use: Yes Types: Marijuana Comment: medical marijuana,, marijuana, and prescription drugs; Clean for 6 years ALLERGIES Allergen Reactions Aspirin GI Upset Latex Rash Vicodin [Hydrocodon* Hives Patient states she now tolerates hydrocodone 07/2018 Current Outpatient Medications Medication Sig hydrOXYzine HCl (ATARAX) 25 mg tablet Take 1 tablet by mouth three times daily as needed (for itching). albuterol HFA (PROVENTIL HFA, VENTOLIN HFA) 90 mcg/actuation inhaler Inhale 2 Puffs as instructed every 4 hours as needed. loratadine (CLARITIN) 10 mg tablet Take 1 tablet by mouth once daily. cyclobenzaprine (FLEXERIL) 10 mg tablet TAKE 1/2 (ONE-HALF) OF A TABLET BY MOUTH EVERY 8 HOURS NEEDED for MUSCLE spasms or FOR PAIN for up to 5 days. benzonatate (TESSALON PERLES) 100 mg capsule Take 1 capsule by mouth three times daily as needed for cough. amLODIPine (NORVASC) 5 mg tablet Take 1 tablet by mouth once daily. hydroCHLOROthiazide (HYDRODIURIL, ESIDRIX) 25 mg tablet Take 1 tablet by mouth once daily. metFORMIN (GLUCOPHAGE) 500 mg tablet Take 1 tablet by mouth twice daily with meals. lidocaine (XYLOCAINE) 5 % ointment APPLY TO THE AFFECTED AREA(S) NEEDED No current facility-administered medications for this visit. Review of Systems Constitutional: Negative for chills, diaphoresis, fever, malaise/fatigue and weight loss. HENT: Negative. Negative for congestion, ear pain, sore throat and tinnitus. Eyes: Negative for blurred vision, double vision, photophobia and pain. Respiratory: Negative for cough, sputum production, shortness of breath and wheezing. Cardiovascular: Negative for chest pain, palpitations, orthopnea and leg swelling. Gastrointestinal: Negative for abdominal pain, blood in stool, constipation, diarrhea, heartburn, melena, nausea and vomiting. Genitourinary: Negative for dysuria, frequency, hematuria and urgency. Musculoskeletal: Positive for back pain and joint pain. Negative for falls, myalgias and neck pain. Chronic and recent TKR Skin: Negative for itching and rash. Neurological: Negative for dizziness, tingling, tremors, sensory change, speech change, focal weakness, weakness and headaches. Endo/Heme/Allergies: Negative for environmental allergies and polydipsia. Does not bruise/bleed easily. Psychiatric/Behavioral: Negative for depression and substance abuse. The patient is nervous/anxious. The patient does not have insomnia. Chronic stable 07/23/22 0907 BP: 120/62 BP Site: Left Arm BP Position: Sitting BP Cuff Size: Regular Adult Pulse: 75 Resp: 18 Temp: 36.4 C (97.6 F) TempSrc: Oral SpO2: 94% Weight: 90.4 kg (199 lb 6.4 oz) Height: 175.3 cm (5' 9 ) Physical Exam Vitals and nursing note reviewed. Constitutional: General: She is not in acute distress. Appearance: Normal appearance. She is not diaphoretic. HENT: Head: Normocephalic and atraumatic. Right Ear: External ear normal. Left Ear: External ear normal. Nose: Nose normal. Mouth/Throat: Pharynx: No oropharyngeal exudate. Eyes: General: Lids are normal. No scleral icterus. Right eye: No discharge. Left eye: No discharge. Conjunctiva/sclera: Conjunctivae normal. Pupils: Pupils are equal, round, and reactive to light. Neck: Vascular: Normal carotid pulses. No carotid bruit. Cardiovascular: Rate and Rhythm: Normal rate and regular rhythm. Pulses: Normal pulses. Dorsalis pedis pulses are 2+ on the right side and 2+ on the left side. Posterior tibial pulses are 2+ on the right side and 2+ on the left side. Heart sounds: Normal heart sounds, S1 normal and S2 normal. No murmur heard. No friction rub. No gallop. Pulmonary: Effort: Pulmonary effort is normal. No accessory muscle usage or respiratory distress. Breath sounds: Normal breath sounds. No decreased breath sounds, wheezing, rhonchi or rales. Chest: Chest wall: No tenderness. Abdominal: General: Bowel sounds are normal. There is no distension. Palpations: Abdomen is soft. Tenderness: There is no abdominal tenderness. Musculoskeletal: General: No tenderness. Normal range of motion. Cervical back: Normal range of motion and neck supple. Feet: Right foot: Skin integrity: Skin integrity normal. Toenail Condition: Right toenails are normal. Left foot: Skin integrity: Skin integrity normal. Toenail Condition: Left toenails are normal. Comments: Feet:Shoes and socks removed, No deformities, ulcers, calluses, normal distal pulses, and sensitive to 10 gm monofilament Skin: General: Skin is warm and dry. Coloration: Skin is not pale. Findings: No erythema or rash. Nails: There is no clubbing. Neurological: Mental Status: She is alert and oriented to person, place, and time. Sensory: Sensation is intact. Motor: Motor function is intact. No abnormal muscle tone. Coordination: Coordination normal. Gait: Gait is intact. Deep Tendon Reflexes: Reflexes are normal and symmetric. Psychiatric: Mood and Affect: Mood and affect normal. Behavior: Behavior normal. Thought Content: Thought content normal. Cognition and Memory: Memory normal. Judgment: Judgment normal. Component Latest Ref Rng & Units 07/17/2021 07/19/2021 01/22/2022 03/28/2022 06/21/2022 Protein, Total 6.3 - 8.0 g/dL 7.3 Albumin 3.9 - 4.9 g/dL 4.5 Calcium 8.5 - 10.2 mg/dL 9.7 Bilirubin, Total 0.2 - 1.3 mg/dL 0.5 Alkaline Phosphatase 34 - 123 U/L 75 AST 13 - 35 U/L 23 ALT 7 - 38 U/L 24 Glucose 74 - 99 mg/dL 144 (H) BUN 7 - 21 mg/dL 16 Creatinine 0.58 - 0.96 mg/dL 0.72 Sodium 136 - 144 mmol/L 139 Potassium 3.7 - 5.1 mmol/L 3.9 Chloride 97 - 105 mmol/L 100 CO2 22 - 30 mmol/L 26 Anion Gap 9 - 18 mmol/L 13 eGFR >=60 mL/min/1.73m 95 WBC 3.70 - 11.00 k/uL 8.26 RBC 3.90 - 5.20 m/uL 4.62 Hemoglobin 11.5 - 15.5 g/dL 14.2 Hematocrit 36.0 - 46.0 % 43.6 MCV 80.0 - 100.0 fL 94.4 MCH 26.0 - 34.0 pg 30.7 MCHC 30.5 - 36.0 g/dL 32.6 RDW-CV 11.5 - 15.0 % 13.8 Platelet Count 150 - 400 k/uL 286 MPV 9.0 - 12.7 fL 10.3 Cholesterol, Total <200 mg/dL 173 Triglyceride <150 mg/dL 88 HDL Cholesterol >39 mg/dL 59 Non HDL Cholesterol <130 mg/dL 114 Fasting Time hrs 12 VLDL Cholesterol <30 mg/dL 18 TC:HDL Ratio <5.10 2.93 LDL Cholesterol <100 mg/dL 96 LDL:HDL Ratio <2.54 1.63 HIV 12 Combo (Ag/Ab) Nonreactive Nonreactive HIV 1/2 Ab HIV Interpretation Hemoglobin A1C (POCT) 4.2 - 5.6 % 6.7 (A) 7.0 (A) 7.0 (A) TSH 0.270 - 4.200 mIU/L 1.920 Vitamin D 25 Hydroxy >=30.0 ng/mL 30.5 Outside labs: 06/21/22 HGB A1C 6.7% ASSESSMENT/PLAN: 1. Type 2 diabetes mellitus without complication, without long-term current use of insulin (HCC) - ICD9: 250.00, ICD10: E11.9 (primary diagnosis) - Controlled - Continue current medications - Counseled on healthy diet and regular exercise - Discussed need for and benefit of weight loss. BMI 29.45 kg/(m^2) - Follow up in 6 months, sooner should any other issues arise. - ALBUMIN/CREAT RATIO RND UR 2. Essential hypertension - ICD9: 401.9, ICD10: I10 - good control - Continue current medication(s) - Encouraged dietary sodium restriction/DASH diet - Recommended regular aerobic exercise. - Recommend home blood pressure monitoring, to bring results in on next visit - Discussed need and benefit for weight loss. - Reviewed risks of HTN and principles of treatment - Goal of BP <130/80 - Recommended no refined sugar, low refined starch, healthy oil intake (olive oil), healthy protein (fish) along the lines of the Mediterranean diet. 3. Anxiety and depression - ICD9: 300.00, 311, ICD10: F41.9, F32.A - chronic, stable. - continue hydroxyzine as needed for anxiety 4. Other chronic pain - ICD9: 338.29, ICD10: G89.29 - Chronic stable. 5. Screening for lipid disorders - ICD9: V77.91, ICD10: Z13.220 - LIPID PANEL BASIC 6. Colon cancer screening - ICD9: V76.51, ICD10: Z12.11 - COLOGUARD All of the above discussed with the patient in detail. Patient is in agreement with the above plan. 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 Recommend she see podiatry for evaluation and management. Referral made. Please give her name and numbers IMPRESSION IMPRESSION: NONDISPLACED FRACTURES OF THE DISTAL PHALANX AND MIDDLE PHALANX OF THE FOURTH DIGIT, NEW SINCE THE PREVIOUS EXAM. documented in this encounter [facility] 06-27-2022 Miscellaneous Notes Dropped something heavy on her R foot top foot swelling and 3 toes some bruising. Let pt know that you will put X ray in and we will call her with results and the plain when we get the results Karime Henderson MA documented in this encounter [facility] 06-21-2022 Note HNO ID: [id number] Author: Yenny Neely APRN.OTOLARYNGOLOGY SURGEON Service: ? Author Type: Nurse Practitioner Type: Progress Notes Filed: 06/21/2022 12:54 PM Note Text: This note was created using Sparkcentralriter. Subjective Emilia Flynn is a 62 year old female who presents presurgical evaluation for right TKR. PMH HTN, DM, anxiety and depression, chronic pain. Patient denies changes in health since last office visit. Reports feeling well. Denies concerns or complaints today. She reports she quit smoking x 2 wks. Reports she had presurgical testing at [facility] she reports having blood work and ECG this am. Reports she quit smoking x2 wks and no marijuana. She is having TKR at [facility]. Pain is constant. Worse with activity. She is ready for surgery. Denies fever, chills, recent illness I reviewed her past medical, surgical, social, and family histories today and updated chart. Allergies, chronic medications, and supplements were also reviewed and her list is now up to date. CT/Extremity Lower without Contra IMPRESSION: 1. Preoperative planning study. 2. Severe tricompartmental osteoarthrosis of the knee with associated large suprapatellar joint effusion. 3. Focal lucency is suspicious for age indeterminate but likely chronic osteochondral lesion at the lateral talar dome measuring 6 mm. Electronically Signed: HPI: Type of Surgery: Right total knee arthroplasty Date of Surgery: 07/03/22 Surgeon: Dr Umanzor Place of Surgery: [facility] Functional Status of patient: Able to perform activities of daily living: Yes Able to walk up a flight of stairs: Yes Able to do heavy house work: Yes Associated Conditions: Does the patient have diabetes:Yes Does the patient have lung problems: No Does the patient have heart disease: No Has there been any problems with anesthesia in the past? No, reports she wakes up anxious Is there any family history of allergic reactions to anesthesia in the past? No PAST MEDICAL HISTORY Diagnosis Date Abdominal bloating Abnormal mammography Anxiety Asthma mild intermittent Body mass index 30.0-30.9, adult Breast lump left Chest wall pain Chronic depression Chronic pain Degeneration of cervical intervertebral disc Depressive disorder Dysmenorrhea Edema Essential hypertension h/o suicide attempt FH: cardiovascular disease Fibromyalgia Foot pain [place] (generalized anxiety disorder) GERD (gastroesophageal reflux disease) Heel pain left heel spur, see xray from 01/13/10 Hyperglycemia Hyperlipemia Hypertriglyceridemia IBS (irritable bowel syndrome) Low back pain Lumbar stenosis Lumbar spondylolysis L4-L5; MRI 12/2005 Menometrorrhagia Menopausal flushing Migraine Muscle pain Myalgia and myositis Narcotic drug use Obesity Opioid abuse (HCC) Osteoarthritis (arthritis due to wear and tear of joints) Lumbar, Left foot, Right hip Periodic edema Primary fibromyalgia syndrome Spinal stenosis Spinal stenosis of lumbar region L4-L5; MRI 12/2005 Spinal stenosis of lumbar region without neurogenic claudication Tobacco dependence syndrome Trochanteric bursitis Type 2 diabetes mellitus (HCC) PAST SURGICAL HISTORY Procedure Laterality Date APPENDECTOMY KNEE LEFT OP SURGERY 01/24/2018 KNEE RIGHT OP SURGERY 07/22/2018 LIG/TRNSXJ FLP TUBE ABDL/VAG APPR UNI/BI Dr. Erin Werner PAST SURGICAL HISTORY OF ovarian cyst- right side at age 28 yo TONSILLECTOMY AND ADENOIDECTOMY HX TREAT ECTOPIC FAMILY HISTORY Problem Relation Age of Onset other (Heart Disease) Father other (Thryoid) Other Maternal Side of Family other (fibromyalgia) Other other (DJD) Sister other (schizophrenic) Sister other (bipolar) Sister other (Other) Other Dtr DM; Paternal side DM Social History Tobacco Use Smoking status: Every Day Packs/day: 1.00 Years: 46.00 Pack years: 46.00 Types: Cigarettes Start date: 03/18/1974 Smokeless tobacco: Never Tobacco comments: Not interested in quitting smoking; Amount: 1-9 cigs/day,4 packs per week Vaping Use Vaping Use: Never used Substance Use Topics Alcohol use: No Drug use: Yes Types: Marijuana Comment: medical marijuana,, marijuana, and prescription drugs; Clean for 6 years Current Outpatient Medications Medication Sig albuterol HFA (PROVENTIL HFA, VENTOLIN HFA) 90 mcg/actuation inhaler Inhale 2 Puffs as instructed every 4 hours as needed. loratadine (CLARITIN) 10 mg tablet Take 1 tablet by mouth once daily. cyclobenzaprine (FLEXERIL) 10 mg tablet TAKE 1/2 (ONE-HALF) OF A TABLET BY MOUTH EVERY 8 HOURS NEEDED for MUSCLE spasms or FOR PAIN for up to 5 days. alendronate (FOSAMAX) 70 mg tablet Take 1 tablet by mouth one time a week. In am with glass of water, on a empty stomach, nothing by mouth or lying down for 60 minutes tiotropium bromide (SPIRIVA RESPIMAT) 1.25 mcg/actuation mist Inhale 2 Puffs as i (more content not included)... [facility] 06-21-2022 History of Present illness Narrative This note was created using Sparkcentralriter. Subjective Emilia Flynn is a 62 year old female who presents presurgical evaluation for right TKR. PMH HTN, DM, anxiety and depression, chronic pain. Patient denies changes in health since last office visit. Reports feeling well. Denies concerns or complaints today. She reports she quit smoking x 2 wks. Reports she had presurgical testing at [facility] she reports having blood work and ECG this am. Reports she quit smoking x2 wks and no marijuana. She is having TKR at [facility]. Pain is constant. Worse with activity. She is ready for surgery. Denies fever, chills, recent illness I reviewed her past medical, surgical, social, and family histories today and updated chart. Allergies, chronic medications, and supplements were also reviewed and her list is now up to date. CT/Extremity Lower without Contra IMPRESSION: 1. Preoperative planning study. 2. Severe tricompartmental osteoarthrosis of the knee with associated large suprapatellar joint effusion. 3. Focal lucency is suspicious for age indeterminate but likely chronic osteochondral lesion at the lateral talar dome measuring 6 mm. Electronically Signed: HPI: Type of Surgery: Right total knee arthroplasty Date of Surgery: 07/03/22 Surgeon: Dr Umanzor Place of Surgery: [facility] Functional Status of patient: Able to perform activities of daily living: Yes Able to walk up a flight of stairs: Yes Able to do heavy house work: Yes Associated Conditions: Does the patient have diabetes:Yes Does the patient have lung problems: No Does the patient have heart disease: No Has there been any problems with anesthesia in the past? No, reports she wakes up anxious Is there any family history of allergic reactions to anesthesia in the past? No PAST MEDICAL HISTORY Diagnosis Date Abdominal bloating Abnormal mammography Anxiety Asthma mild intermittent Body mass index 30.0-30.9, adult Breast lump left Chest wall pain Chronic depression Chronic pain Degeneration of cervical intervertebral disc Depressive disorder Dysmenorrhea Edema Essential hypertension h/o suicide attempt FH: cardiovascular disease Fibromyalgia Foot pain [place] (generalized anxiety disorder) GERD (gastroesophageal reflux disease) Heel pain left heel spur, see xray from 01/13/10 Hyperglycemia Hyperlipemia Hypertriglyceridemia IBS (irritable bowel syndrome) Low back pain Lumbar stenosis Lumbar spondylolysis L4-L5; MRI 12/2005 Menometrorrhagia Menopausal flushing Migraine Muscle pain Myalgia and myositis Narcotic drug use Obesity Opioid abuse (HCC) Osteoarthritis (arthritis due to wear and tear of joints) Lumbar, Left foot, Right hip Periodic edema Primary fibromyalgia syndrome Spinal stenosis Spinal stenosis of lumbar region L4-L5; MRI 12/2005 Spinal stenosis of lumbar region without neurogenic claudication Tobacco dependence syndrome Trochanteric bursitis Type 2 diabetes mellitus (HCC) PAST SURGICAL HISTORY Procedure Laterality Date APPENDECTOMY KNEE LEFT OP SURGERY 01/24/2018 KNEE RIGHT OP SURGERY 07/22/2018 LIG/TRNSXJ FLP TUBE ABDL/VAG APPR UNI/BI Dr. Erin Werner PAST SURGICAL HISTORY OF ovarian cyst- right side at age 28 yo TONSILLECTOMY AND ADENOIDECTOMY HX TREAT ECTOPIC FAMILY HISTORY Problem Relation Age of Onset other (Heart Disease) Father other (Thryoid) Other Maternal Side of Family other (fibromyalgia) Other other (DJD) Sister other (schizophrenic) Sister other (bipolar) Sister other (Other) Other Dtr DM; Paternal side DM Social History Tobacco Use Smoking status: Every Day Packs/day: 1.00 Years: 46.00 Pack years: 46.00 Types: Cigarettes Start date: 03/18/1974 Smokeless tobacco: Never Tobacco comments: Not interested in quitting smoking; Amount: 1-9 cigs/day,4 packs per week Vaping Use Vaping Use: Never used Substance Use Topics Alcohol use: No Drug use: Yes Types: Marijuana Comment: medical marijuana,, marijuana, and prescription drugs; Clean for 6 years Current Outpatient Medications Medication Sig albuterol HFA (PROVENTIL HFA, VENTOLIN HFA) 90 mcg/actuation inhaler Inhale 2 Puffs as instructed every 4 hours as needed. loratadine (CLARITIN) 10 mg tablet Take 1 tablet by mouth once daily. cyclobenzaprine (FLEXERIL) 10 mg tablet TAKE 1/2 (ONE-HALF) OF A TABLET BY MOUTH EVERY 8 HOURS NEEDED for MUSCLE spasms or FOR PAIN for up to 5 days. alendronate (FOSAMAX) 70 mg tablet Take 1 tablet by mouth one time a week. In am with glass of water, on a empty stomach, nothing by mouth or lying down for 60 minutes tiotropium bromide (SPIRIVA RESPIMAT) 1.25 mcg/actuation mist Inhale 2 Puffs as instructed once daily. benzonatate (TESSALON PERLES) 100 mg capsule Take 1 capsule by mouth three times daily as needed for cough. amLODIPine (NORVASC) 5 mg tablet Take 1 tablet by mouth once daily. hydroCHLOROthiazide (HYDRODIURIL, ESIDRIX) 25 mg tablet Take 1 tablet by mouth once daily. metFORMIN (GLUCOPHAGE) 500 mg tablet Take 1 tablet by mouth twice daily with meals. lidocaine (XYLOCAINE) 5 % ointment APPLY TO THE AFFECTED AREA(S) NEEDED naproxen (NAPROSYN) 500 mg tablet Take 1 tablet by mouth twice daily with meals. No current facility-administered medications for this visit. ALLERGIES Allergen Reactions Aspirin GI Upset Latex Rash Vicodin [Hydrocodon* Hives Patient states she now tolerates hydrocodone 07/2018 Review of Systems Constitutional: Negative for activity change, appetite change, chills, diaphoresis, fatigue, fever and unexpected weight change. HENT: Negative for sore throat and trouble swallowing. Eyes: Negative for photophobia and visual disturbance. Respiratory: Positive for cough. Negative for chest tightness, shortness of breath and wheezing. Secondary to stopping smoking. Cardiovascular: Negative for chest pain, palpitations and leg swelling. Gastrointestinal: Negative for abdominal pain, blood in stool, constipation, diarrhea, nausea and vomiting. Endocrine: Negative. Genitourinary: Negative for difficulty urinating, dysuria and hematuria. Musculoskeletal: Positive for arthralgias and back pain. Negative for myalgias and neck pain. Reports back pain is improving. Chronic right knee pain Skin: Negative. Neurological: Negative for dizziness, weakness and headaches. Hematological: Negative. Does not bruise/bleed easily. Psychiatric/Behavioral: Negative for dysphoric mood and sleep disturbance. The patient is nervous/anxious. Chronic Objective 06/21/22 1026 BP: 128/78 BP Site: Left Arm BP Position: Sitting BP Cuff Size: Regular Adult Pulse: 60 Resp: 18 Temp: 36.8 C (98.2 F) TempSrc: Oral SpO2: 100% Weight: 91.5 kg (201 lb 12.8 oz) Height: 175.3 cm (5' 9 ) Physical Exam Vitals and nursing note reviewed. Constitutional: General: She is not in acute distress. Appearance: Normal appearance. She is not ill-appearing or diaphoretic. HENT: Head: Normocephalic and atraumatic. Right Ear: External ear normal. Left Ear: External ear normal. Nose: Nose normal. No congestion or rhinorrhea. Mouth/Throat: Pharynx: No oropharyngeal exudate. Eyes: General: Lids are normal. No scleral icterus. Right eye: No discharge. Left eye: No discharge. Conjunctiva/sclera: Conjunctivae normal. Pupils: Pupils are equal, round, and reactive to light. Neck: Vascular: Normal carotid pulses. No carotid bruit. Cardiovascular: Rate and Rhythm: Normal rate and regular rhythm. Pulses: Normal pulses. Heart sounds: Normal heart sounds, S1 normal and S2 normal. No murmur heard. No friction rub. No gallop. Pulmonary: Effort: Pulmonary effort is normal. No accessory muscle usage or respiratory distress. Breath sounds: Normal breath sounds. No decreased breath sounds, wheezing, rhonchi or rales. Chest: Chest wall: No tenderness. Abdominal: General: Bowel sounds are normal. There is no distension. Palpations: Abdomen is soft. Tenderness: There is no abdominal tenderness. Musculoskeletal: General: No tenderness. Normal range of motion. Cervical back: Normal range of motion and neck supple. Right lower leg: No edema. Left lower leg: No edema. Skin: General: Skin is warm and dry. Coloration: Skin is not pale. Findings: No erythema or rash. Nails: There is no clubbing. Neurological: General: No focal deficit present. Mental Status: She is alert and oriented to person, place, and time. Motor: No abnormal muscle tone. Coordination: Coordination normal. Deep Tendon Reflexes: Reflexes are normal and symmetric. Psychiatric: Attention and Perception: Attention and perception normal. Mood and Affect: Affect normal. Mood is anxious. Speech: Speech is rapid and pressured. Behavior: Behavior normal. Behavior is cooperative. Thought Content: Thought content normal. Cognition and Memory: Cognition and memory normal. Judgment: Judgment normal. Office Visit on 06/21/2022 Component Date Value Ref Range Status Hemoglobin A1C (POCT) 06/21/2022 7.0 (A) 4.2 - 5.6 % Final Comment: Location:[facility], [address] [place] [address], [address] Point of care (POC) Hemoglobin A1c (HGBA1C) testing is intended to assess glucose control and provide a management tool for patients known to have diabetes and their healthcare providers. Target HGBA1C levels may depend on specific clinical circumstances. POC HGBA1C is not intended for use as a diagnostic or screening test; laboratory-based testing should be used for diagnostic purposes. The following information is supplemental and may not be applicable to specific diabetes management situations: The POC device lead rider provides a normal range of 4.2% to 6.5% for the HGBA1C POC test. However, the [place] [employer] guidelines indicate that patients with HGBA1C in the range of 5.7% to 6.4% are at increased risk for development of diabetes and that intervention by lifestyle modification may be beneficial. A HGBA1C level greater than or equal to 6.5% is considered diagnostic of diabetes, pending confirmatory testing. Use of HGBA1C testing to evaluate glucose control may not be appropriate for patients with hemoglobin variants or other conditions (e.g. anemia) that alter red blood cell lifespan. ASSESSMENT/PLAN: 1. Pre-operative general physical examination - ICD9: V72.83, ICD10: Z01.818 (primary diagnosis) - exam unremarkable. She is optimized for surgery. - OV note to be faxed to surgeons office 2. Chronic pain of right knee - ICD9: 719.46, 338.29, ICD10: M25.561, G89.29 - chronic, pt okay to proceed with planned surgical intervention 3. Type 2 diabetes mellitus without complication, without long-term current use of insulin (HCC) - ICD9: 250.00, ICD10: E11.9 - Stable. HGB A1C at 7% and is stable from last ov in 02/06. - Continue current medications - Counseled on healthy diet and regular exercise - Discussed need for and benefit of weight loss. BMI 29.80 kg/(m^2) - HGBA1C B/O - CBC - COMP METABOLIC PANEL - ALBUMIN/CREAT RATIO RND UR 4. Essential hypertension - ICD9: 401.9, ICD10: I10 - good control - Continue current medication(s) - Encouraged dietary sodium restriction/DASH diet - Recommended regular aerobic exercise. - Recommend home blood pressure monitoring, to bring results in on next visit - Discussed need and benefit for weight loss. - Reviewed risks of HTN and principles of treatment - Goal of BP <130/80 - Recommended no refined sugar, low refined starch, healthy oil intake (olive oil), healthy protein (fish) along the lines of the Mediterranean diet. 5. Anxiety - ICD9: 300.00, ICD10: F41.9 - chronic, pt requesting xanax. I reviewed management with pt. I advised her due to her hx drug abuse I do not recommend benzodiazepines for management. Pt reports this is only thing that works. I discussed referral to psych for evaluation and recommendation. Pt is not interested in this. She was agreeable to try atarax. - HYDROXYZINE HCL 25 MG TABLET Yenny Neely APRN.OTOLARYNGOLOGY SURGEON documented in this encounter [facility] 06-01-2022 Miscellaneous Notes pharmacy electronically requesting refills as follows: Last seen 04/17/22 . Last refill 11/15/21 . Requested Prescriptions Pending Prescriptions Disp Refills albuterol HFA (PROVENTIL HFA, VENTOLIN HFA) 90 mcg/actuation inhaler [Pharmacy Med Name: albuterol sulfate HFA 90 mcg/actuation aerosol inhaler] 18 g 1 Sig: Inhale 2 Puffs as instructed every 4 hours as needed. Please review and advise. Seema Herrera MA documented in this encounter [facility] 05-30-2022 Miscellaneous Notes Pt has apt on 06/21/22 Please call pt to schedule a 40 min appt for surgical clearance and disability paperwork. Received surgical clearance form from [facility] for knee surgery. Pts last OV 04/17/22 does she need surgical clearance apt Karime Henderson MA documented in this encounter [facility] 04-19-2022 Miscellaneous Notes Faxed paper work, order and ins card to [facility] [phone] Called pt gave her the contact information and pt needs to call and make apt Karime Henderson MA Please fax over disability paper work Received Disability paper work from [facility] for pt. They are asking for pt physical abilities. Order needs put in for [facility] Karime Henderson MA documented in this encounter [facility] 04-17-2022 Note HNO ID: [id number] Author: Yenny Neely APRN.JENNA Service: ? Author Type: Nurse Practitioner Type: Progress Notes Filed: 04/17/2022 8:35 AM Note Text: This note was created using Sparkcentralriter. Subjective Emilia Flynn is a 62 year old female here today for an acute visit for concerns for growth on left side of neck. Reports she noticed this about 3 wks ago. States it looked like maybe a mole and states it has enlarged over the the past 3 wks. States it has become tender to touch. No redness or drainage. She reports started with right ear pain last week. States she felt like she was under water and had muffled hearing. States this has resolved but pain continues. States this has improved overall. Reports she always has sinus drainage. Reports she has a cat and she is allergic to him. She does not take anything for this. She did see Dr campbell ortho surg for fractured thoracic spine. States she is to follow up with Dr rodgers for management. ALLERGIES Allergen Reactions Aspirin GI Upset Latex Rash Vicodin [Hydrocodon* Hives Patient states she now tolerates hydrocodone 07/2018 Current Outpatient Medications Medication Sig Dispense Refill cyclobenzaprine (FLEXERIL) 10 mg tablet TAKE 1/2 (ONE-HALF) OF A TABLET BY MOUTH EVERY 8 HOURS NEEDED for MUSCLE spasms or FOR PAIN for up to 5 days. 30 tablet 2 alendronate (FOSAMAX) 70 mg tablet Take 1 tablet by mouth one time a week. In am with glass of water, on a empty stomach, nothing by mouth or lying down for 60 minutes 4 tablet 1 tiotropium bromide (SPIRIVA RESPIMAT) 1.25 mcg/actuation mist Inhale 2 Puffs as instructed once daily. 1 Each 11 benzonatate (TESSALON PERLES) 100 mg capsule Take 1 capsule by mouth three times daily as needed for cough. 30 capsule 5 amLODIPine (NORVASC) 5 mg tablet Take 1 tablet by mouth once daily. 90 tablet 3 hydroCHLOROthiazide (HYDRODIURIL, ESIDRIX) 25 mg tablet Take 1 tablet by mouth once daily. 90 tablet 3 metFORMIN (GLUCOPHAGE) 500 mg tablet Take 1 tablet by mouth twice daily with meals. 180 tablet 3 lidocaine (XYLOCAINE) 5 % ointment APPLY TO THE AFFECTED AREA(S) NEEDED 133.68 g 0 naproxen (NAPROSYN) 500 mg tablet Take 1 tablet by mouth twice daily with meals. (Patient not taking: Reported on 02/23/2022) 60 tablet 5 albuterol HFA (PROVENTIL HFA, VENTOLIN HFA) 90 mcg/actuation inhaler Inhale 2 Puffs as instructed every 4 hours as needed. 18 g 2 No current facility-administered medications for this visit. ACTIVE PROBLEM LIST Anxiety and Depression Essential Hypertension Muscle Spasms of Both Lower Extremities Tobacco Use Disorder Type 2 Diabetes Mellitus (Hcc) Depressive Disorder Chronic Pain PAST MEDICAL HISTORY Diagnosis Date Abdominal bloating Abnormal mammography Anxiety Asthma mild intermittent Body mass index 30.0-30.9, adult Breast lump left Chest wall pain Chronic depression Chronic pain Degeneration of cervical intervertebral disc Depressive disorder Dysmenorrhea Edema Essential hypertension h/o suicide attempt FH: cardiovascular disease Fibromyalgia Foot pain [place] (generalized anxiety disorder) GERD (gastroesophageal reflux disease) Heel pain left heel spur, see xray from 01/13/10 Hyperglycemia Hyperlipemia Hypertriglyceridemia IBS (irritable bowel syndrome) Low back pain Lumbar stenosis Lumbar spondylolysis L4-L5; MRI 12/2005 Menometrorrhagia Menopausal flushing Migraine Muscle pain Myalgia and myositis Narcotic drug use Obesity Opioid abuse (HCC) Osteoarthritis (arthritis due to wear and tear of joints) Lumbar, Left foot, Right hip Periodic edema Primary fibromyalgia syndrome Spinal stenosis Spinal stenosis of lumbar region L4-L5; MRI 12/2005 Spinal stenosis of lumbar region without neurogenic claudication Tobacco dependence syndrome Trochanteric bursitis Type 2 diabetes mellitus (HCC) PAST SURGICAL HISTORY Procedure Laterality Date APPENDECTOMY KNEE LEFT OP SURGERY 01/24/2018 KNEE RIGHT OP SURGERY 07/22/2018 LIG/TRNSXJ FLP TUBE ABDL/VAG APPR UNI/BI Dr. Erin Werner PAST SURGICAL HISTORY OF ovarian cyst- right side at age 28 yo TONSILLECTOMY AND ADENOIDECTOMY HX TREAT ECTOPIC Social History Tobacco Use Smoking status: Every Day Packs/day: 1.00 Years: 46.00 Pack years: 46.00 Types: Cigarettes Start date: 03/18/1974 Smokeless tobacco: Never Tobacco comments: Not interested in quitting smoking; Amount: 1-9 cigs/day,4 packs per week Vaping Use Vaping Use: Never used Substance Use Topics Alcohol use: No Drug use: Yes Types: Marijuana Comment: medical marijuana,, marijuana, and prescription drugs; Clean for 6 years Family History Problem Relation Age of Onset other (Heart Disease) Father other (Thryoid) Other Maternal Side of Family other (fibromyalgia) Other other (DJD) Sister other (schizophrenic) Sister other (b (more content not included)... [facility] 04-17-2022 History of Present illness Narrative Images from the original note were not included. This note was created using Sparkcentralriter. Subjective Emilia Flynn is a 62 year old female here today for an acute visit for concerns for growth on left side of neck. Reports she noticed this about 3 wks ago. States it looked like maybe a mole and states it has enlarged over the the past 3 wks. States it has become tender to touch. No redness or drainage. She reports started with right ear pain last week. States she felt like she was under water and had muffled hearing. States this has resolved but pain continues. States this has improved overall. Reports she always has sinus drainage. Reports she has a cat and she is allergic to him. She does not take anything for this. She did see Dr campbell ortho surg for fractured thoracic spine. States she is to follow up with Dr rodgers for management. ALLERGIES Allergen Reactions Aspirin GI Upset Latex Rash Vicodin [Hydrocodon* Hives Patient states she now tolerates hydrocodone 07/2018 Current Outpatient Medications Medication Sig Dispense Refill cyclobenzaprine (FLEXERIL) 10 mg tablet TAKE 1/2 (ONE-HALF) OF A TABLET BY MOUTH EVERY 8 HOURS NEEDED for MUSCLE spasms or FOR PAIN for up to 5 days. 30 tablet 2 alendronate (FOSAMAX) 70 mg tablet Take 1 tablet by mouth one time a week. In am with glass of water, on a empty stomach, nothing by mouth or lying down for 60 minutes 4 tablet 1 tiotropium bromide (SPIRIVA RESPIMAT) 1.25 mcg/actuation mist Inhale 2 Puffs as instructed once daily. 1 Each 11 benzonatate (TESSALON PERLES) 100 mg capsule Take 1 capsule by mouth three times daily as needed for cough. 30 capsule 5 amLODIPine (NORVASC) 5 mg tablet Take 1 tablet by mouth once daily. 90 tablet 3 hydroCHLOROthiazide (HYDRODIURIL, ESIDRIX) 25 mg tablet Take 1 tablet by mouth once daily. 90 tablet 3 metFORMIN (GLUCOPHAGE) 500 mg tablet Take 1 tablet by mouth twice daily with meals. 180 tablet 3 lidocaine (XYLOCAINE) 5 % ointment APPLY TO THE AFFECTED AREA(S) NEEDED 133.68 g 0 naproxen (NAPROSYN) 500 mg tablet Take 1 tablet by mouth twice daily with meals. (Patient not taking: Reported on 02/23/2022) 60 tablet 5 albuterol HFA (PROVENTIL HFA, VENTOLIN HFA) 90 mcg/actuation inhaler Inhale 2 Puffs as instructed every 4 hours as needed. 18 g 2 No current facility-administered medications for this visit. ACTIVE PROBLEM LIST Anxiety and Depression Essential Hypertension Muscle Spasms of Both Lower Extremities Tobacco Use Disorder Type 2 Diabetes Mellitus (Hcc) Depressive Disorder Chronic Pain PAST MEDICAL HISTORY Diagnosis Date Abdominal bloating Abnormal mammography Anxiety Asthma mild intermittent Body mass index 30.0-30.9, adult Breast lump left Chest wall pain Chronic depression Chronic pain Degeneration of cervical intervertebral disc Depressive disorder Dysmenorrhea Edema Essential hypertension h/o suicide attempt FH: cardiovascular disease Fibromyalgia Foot pain [place] (generalized anxiety disorder) GERD (gastroesophageal reflux disease) Heel pain left heel spur, see xray from 01/13/10 Hyperglycemia Hyperlipemia Hypertriglyceridemia IBS (irritable bowel syndrome) Low back pain Lumbar stenosis Lumbar spondylolysis L4-L5; MRI 12/2005 Menometrorrhagia Menopausal flushing Migraine Muscle pain Myalgia and myositis Narcotic drug use Obesity Opioid abuse (HCC) Osteoarthritis (arthritis due to wear and tear of joints) Lumbar, Left foot, Right hip Periodic edema Primary fibromyalgia syndrome Spinal stenosis Spinal stenosis of lumbar region L4-L5; MRI 12/2005 Spinal stenosis of lumbar region without neurogenic claudication Tobacco dependence syndrome Trochanteric bursitis Type 2 diabetes mellitus (HCC) PAST SURGICAL HISTORY Procedure Laterality Date APPENDECTOMY KNEE LEFT OP SURGERY 01/24/2018 KNEE RIGHT OP SURGERY 07/22/2018 LIG/TRNSXJ FLP TUBE ABDL/VAG APPR UNI/BI Dr. Erin Werner PAST SURGICAL HISTORY OF ovarian cyst- right side at age 28 yo TONSILLECTOMY AND ADENOIDECTOMY HX TREAT ECTOPIC Social History Tobacco Use Smoking status: Every Day Packs/day: 1.00 Years: 46.00 Pack years: 46.00 Types: Cigarettes Start date: 03/18/1974 Smokeless tobacco: Never Tobacco comments: Not interested in quitting smoking; Amount: 1-9 cigs/day,4 packs per week Vaping Use Vaping Use: Never used Substance Use Topics Alcohol use: No Drug use: Yes Types: Marijuana Comment: medical marijuana,, marijuana, and prescription drugs; Clean for 6 years Family History Problem Relation Age of Onset other (Heart Disease) Father other (Thryoid) Other Maternal Side of Family other (fibromyalgia) Other other (DJD) Sister other (schizophrenic) Sister other (bipolar) Sister other (Other) Other Dtr DM; Paternal side DM Review of Systems Constitutional: Negative for chills, fatigue and fever. HENT: Positive for ear pain and rhinorrhea. Negative for congestion, facial swelling, postnasal drip, sinus pressure, sinus pain, sore throat, trouble swallowing and voice change. Right ear improving Chronic allergies Respiratory: Negative for cough, shortness of breath, wheezing and stridor. Cardiovascular: Negative for chest pain, palpitations and leg swelling. Gastrointestinal: Negative for abdominal pain. Allergic/Immunologic: Positive for environmental allergies. Objective 04/17/22 0753 BP: 128/78 BP Site: Right Arm BP Position: Sitting BP Cuff Size: Regular Adult Pulse: 104 Resp: 18 Temp: 36.4 C (97.6 F) TempSrc: Oral SpO2: 99% Weight: 89.5 kg (197 lb 6.4 oz) Height: 175.3 cm (5' 9 ) Physical Exam Vitals and nursing note reviewed. Constitutional: General: She is not in acute distress. Appearance: Normal appearance. She is not ill-appearing. HENT: Head: Normocephalic and atraumatic. Right Ear: Tympanic membrane, ear canal and external ear normal. Left Ear: Tympanic membrane, ear canal and external ear normal. Nose: No congestion or rhinorrhea. Mouth/Throat: Pharynx: No oropharyngeal exudate or posterior oropharyngeal erythema. Neck: Cardiovascular: Rate and Rhythm: Normal rate and regular rhythm. Pulses: Normal pulses. Heart sounds: Normal heart sounds. Pulmonary: Effort: Pulmonary effort is normal. No respiratory distress. Breath sounds: Normal breath sounds. No wheezing or rhonchi. Lymphadenopathy: Cervical: Cervical adenopathy present. Left cervical: Superficial cervical adenopathy present. Skin: General: Skin is warm and dry. Neurological: Mental Status: She is alert. Psychiatric: Mood and Affect: Mood normal. Behavior: Behavior normal. Thought Content: Thought content normal. Judgment: Judgment normal. ASSESSMENT/PLAN: 1. Localized swelling, mass and lump, neck - ICD9: 784.2, ICD10: R22.1 (primary diagnosis) - acute, no evidence of infection. There is a dime size tender lump left side of neck. DD lymphadenopathy, abscess, cyst. Pt reports she wants this removed. Will refer to general surg for evaluation. - CONSULT TO GENERAL SURGERY 2. Cat allergies - ICD9: 477.8, ICD10: J30.81 - start Claritin once daily. - LORATADINE 10 MG TABLET Yenny Neely APRN.JENNA documented in this encounter [facility] 04-16-2022 Miscellaneous Notes Last OV 01/22/22 Apt 07/23/22 Labs 07/19/21 Pharmacy calls in requesting the following refill(s): Requested Prescriptions Pending Prescriptions Disp Refills cyclobenzaprine (FLEXERIL) 10 mg tablet [Pharmacy Med Name: cyclobenzaprine 10 mg tablet] 30 tablet 2 Sig: TAKE 1/2 (ONE-HALF) OF A TABLET BY MOUTH EVERY 8 HOURS NEEDED for MUSCLE spasms or FOR PAIN for up to 5 days. Karime Henderson MA documented in this encounter [facility] 04-10-2022 Miscellaneous Notes Disability form and records request put on CN folder in front office for JEANNIE. documented in this encounter [facility] 03-29-2022 Miscellaneous Notes Called pt let her know the information Karime Henderson MA ----- Message from Yenny Neely APRN.OTOLARYNGOLOGY SURGEON sent at 03/29/2022 1:10 PM EST ----- Vit d low normal. Increase her vit d by 1000 international unit(s) daily if already taking if not start taking documented in this encounter [facility] 03-15-2022 Miscellaneous Notes Called pt let her know how to take the medication and that vitamin D order has been placed Karime Henderson MA Also due for vitamin D check. Order placed. Pt is willing to try the Fosamax can script be sent in to [facility] for pt ----- Message from Yenny Neely APRN.OTOLARYNGOLOGY SURGEON sent at 03/15/2022 12:12 PM EST ----- Her bone density shows osteopenia. She is at increase risk of fractures. Is she interested in starting fosamax to help improve her bone density. I would also recommend the following GENERAL RECOMMENDATIONS FOR PREVENTION OF BONE LOSS: 1. 1200 mg - 1500 mg calcium per day if no history of renal calculi for adults 50 years and over. 2. 800 - 1000 International Units of vitamin D3 per day if no history of renal calculi for adults 50 years and over. 3. Weight bearing exercise 4. Advise against smoking and recommend smoking cessation if appropriate. 5. Avoid excessive use of caffeine, soft drinks, and alcoholic beverages. IMPRESSION IMPRESSION: Osteopenia by WHO criteria. Patient is at increased risk for fractures. documented in this encounter [facility] 03-14-2022 Note HNO ID: [id number] Author: RT Gracia(R) Service: Radiology Author Type: Technologist Type: Progress Notes Filed: 03/14/2022 2:58 PM Note Text: Radiology Service Progress Note PATIENT NAME: Emilia Flynn DATE OF SERVICE: March 14, 2022 TIME: 2:58 PM PATIENT IDENTITY VERIFICATION COMPLETED USING TWO (2) IDENTIFIERS: Name and Date of confirmed by patient verbally. FALL SCREENING: Has the patient had 2 falls in the last year or 1 fall with injury or currently using an Ambulatory Assistive Device (Walker, Cane, Wheelchair, Crutches, etc.)? No PATIENT GENDER DATA: Female. status: : No status: N/A PATIENT RELEVANT IMPLANT DATA REVIEWED: Not Applicable RADIOLOGY DEPARTMENT: Bone Density PERIPHERAL IV DATA: Not applicable SIGNED BY: RT Gracia(R) March 14, 2022 2:58 PM [facility] 03-14-2022 History of Present illness Narrative Radiology Service Progress Note PATIENT NAME: Emilia Flynn DATE OF SERVICE: March 14, 2022 TIME: 2:58 PM PATIENT IDENTITY VERIFICATION COMPLETED USING TWO (2) IDENTIFIERS: Name and Date of confirmed by patient verbally. FALL SCREENING: Has the patient had 2 falls in the last year or 1 fall with injury or currently using an Ambulatory Assistive Device (Walker, Cane, Wheelchair, Crutches, etc.)? No PATIENT GENDER DATA: Female. status: : No status: N/A PATIENT RELEVANT IMPLANT DATA REVIEWED: Not Applicable RADIOLOGY DEPARTMENT: Bone Density PERIPHERAL IV DATA: Not applicable SIGNED BY: RT Gracia(R) March 14, 2022 2:58 PM documented in this encounter [facility] 02-27-2022 Miscellaneous Notes ----- Message from Yenny Neely APRN.OTOLARYNGOLOGY SURGEON sent at 02/25/2022 8:19 PM EST ----- Xray shows compression fracture of T6, wo significant change. Follow up with ortho as referred. documented in this encounter [facility] 02-23-2022 Instructions Meredith Masterson APRN.JENNA - 02/23/2022 11:[address] Deepak Campbell PRACTICE: [facility] ADDRESS: [address] [place] [address], [place] [address] [place], [place] [id number] PHONE NUMBER: SPECIALITY: Spine Surgery Orthopedics What is a vertebral compression fracture? -- The word vertebral has to do with the back bones, which doctors call the vertebrae (figure 1). A fracture is another word for a broken bone. A vertebral compression fracture is when a back bone breaks by collapsing. Vertebral compression fractures happen most often in older people who have osteoporosis. Osteoporosis is a disease that makes the bones weak. What are the symptoms of a vertebral compression fracture? -- Most people with a vertebral compression fracture have no symptoms. They find out they have it after their doctor does an X-ray of their chest or belly for another reason. When a vertebral compression fracture causes symptoms, it causes back pain. The pain usually starts suddenly after a fall or after bending, coughing, or lifting. But sometimes, the pain starts slowly. The pain can be dull or sharp, and often spreads to the belly. Over time, people with vertebral compression fractures can: ?Get shorter (lose height) ?Get a bent posture with a hunched back Will I need tests? -- Yes. To check if you have a vertebral compression fracture, your doctor will order an X-ray. They will also do other tests to see if another condition caused your fracture. These can include blood tests, urine tests, or imaging tests. Imaging tests create pictures of the inside of the body. If you have a vertebral compression fracture, your doctor will probably order bone density testing. Bone density testing is a way for your doctor to measure how strong your bones are. The test used most often to measure bone density is a special kind of X-ray called a DXA test. How are vertebral compression fractures treated? -- Treatment for a vertebral compression fracture involves different parts. Your doctor will treat your pain. Depending on how severe your pain is, your doctor can treat it with: ?Strong pain medicines ?Hmau-ggx-[id number] pain medicines, such as acetaminophen (sample brand name: Tylenol), ibuprofen (sample brand names: Advil, Motrin), and naproxen (sample brand name: Aleve) ?Other medicines that can relieve pain, such as calcitonin - Calcitonin is a hormone the body makes naturally. When used for broken bones in the spine, it should only be used until the pain is better, and for no longer than 6 months. If you take calcitonin, after 6 months, you should switch to an osteoporosis medicine that is better at preventing fractures. If osteoporosis caused the fracture, your doctor will also treat this. Long-term osteoporosis treatment includes: ?Medicines - Doctors usually treat osteoporosis with medicines called bisphosphonates. ?Lifestyle changes - Your doctor or nurse will talk with you about ways to keep your bones as healthy as possible. They will probably recommend that you stop smoking (if you smoke) and that you don't drink too much alcohol. You should also eat a healthy diet with enough calcium and vitamin D (figure 2). ?Exercise - It's important to be active for at least 30 minutes a day, on most days of the week. Weight-bearing exercise, such as walking, is best. Weight-bearing exercise means that your feet and legs support your weight. You might have heard or read about other treatments that are sometimes used for vertebral compression fractures. For example, back braces are sometimes used to reduce pain in people who have a fracture. These should not be used for more than a few days, because your muscles can become weak when they are used for longer. In some cases, doctors might suggest trying surgery. The available procedures include vertebroplasty and kyphoplasty. They involve putting a cement material or device into the collapsed back bone. It is not clear whether these procedures help, and they can have serious downsides. Some doctors recommend vertebroplasty or kyphoplasty only for people with severe, disabling pain that does not improve with strong pain medicines, or people with severe pain who cannot take strong pain medicines. When will the pain from my fracture get better? -- For most people, the pain will get better in 4 to 6 weeks. But people can have pain that lasts up to 3 months. Can I do anything to improve the healing process? -- To help with healing, you can follow all of your doctor's instructions. This will probably include doing gentle back stretches while your fracture is healing, and other back exercises when your pain gets better. To learn which stretches and exercises to do, your doctor might have you work with a physical therapist (exercise expert). It's important to be active as soon as possible after your pain gets better. Being active will help keep your back and bones as strong as possible. When should I call my doctor or nurse? -- After treatment, your doctor or nurse will tell you when to call them. In general, you should call if you: ?Have severe pain, or pain that gets worse ?Have numbness or weakness in your legs or feet ?Cannot control your bladder or bowels documented in this encounter [facility] 02-23-2022 History of Present illness Narrative Images from the original note were not included. CHIEF COMPLAINT: Emilia Flynn is a 62 year old female, patient of BARBARA Neely, who presents today to discuss her XR results of her thoracic spine. Unfortunately, the XR results are not back yet. She recently completed a CT chest for a lung nodule and there was an incidental finding of an age-undetermined compression fracture of the vertebral body of T6. She has been having back pain for a few years. She notes that she was lifting a heavier object and felt something crack in her back. She notes that she has fibromyalgia and sometimes isn't sure what her pain is related to. The pain wraps around her ribs on both sides. She has been taking Ibuprofen and Tylenol and using ice and heat but she has no relief with this. She does have Flexeril at home to take as needed. She is interested in seeing a specialist for the compression fracture. The history is provided by the patient. No foreign languages professor was used. PAST MEDICAL HISTORY Diagnosis Date Abdominal bloating Abnormal mammography Anxiety Asthma mild intermittent Body mass index 30.0-30.9, adult Breast lump left Chest wall pain Chronic depression Chronic pain Degeneration of cervical intervertebral disc Depressive disorder Dysmenorrhea Edema Essential hypertension h/o suicide attempt FH: cardiovascular disease Fibromyalgia Foot pain [place] (generalized anxiety disorder) GERD (gastroesophageal reflux disease) Heel pain left heel spur, see xray from 01/13/10 Hyperglycemia Hyperlipemia Hypertriglyceridemia IBS (irritable bowel syndrome) Low back pain Lumbar stenosis Lumbar spondylolysis L4-L5; MRI 12/2005 Menometrorrhagia Menopausal flushing Migraine Muscle pain Myalgia and myositis Narcotic drug use Obesity Opioid abuse (HCC) Osteoarthritis (arthritis due to wear and tear of joints) Lumbar, Left foot, Right hip Periodic edema Primary fibromyalgia syndrome Spinal stenosis Spinal stenosis of lumbar region L4-L5; MRI 12/2005 Spinal stenosis of lumbar region without neurogenic claudication Tobacco dependence syndrome Trochanteric bursitis Type 2 diabetes mellitus (HCC) PAST SURGICAL HISTORY Procedure Laterality Date APPENDECTOMY KNEE LEFT OP SURGERY 01/24/2018 KNEE RIGHT OP SURGERY 07/22/2018 LIG/TRNSXJ FLP TUBE ABDL/VAG APPR UNI/BI Dr. Erin Werner PAST SURGICAL HISTORY OF ovarian cyst- right side at age 28 yo TONSILLECTOMY AND ADENOIDECTOMY HX TREAT ECTOPIC Social History Tobacco Use Smoking status: Every Day Packs/day: 1.00 Years: 46.00 Pack years: 46.00 Types: Cigarettes Start date: 03/18/1974 Smokeless tobacco: Never Tobacco comments: Not interested in quitting smoking; Amount: 1-9 cigs/day,4 packs per week Vaping Use Vaping Use: Never used Substance Use Topics Alcohol use: No Drug use: Yes Types: Marijuana Comment: medical marijuana,, marijuana, and prescription drugs; Clean for 6 years ALLERGIES Allergen Reactions Aspirin GI Upset Latex Rash Vicodin [Hydrocodon* Hives Patient states she now tolerates hydrocodone 07/2018 Family History Problem Relation Age of Onset other (Heart Disease) Father other (Thryoid) Other Maternal Side of Family other (fibromyalgia) Other other (DJD) Sister other (schizophrenic) Sister other (bipolar) Sister other (Other) Other Dtr DM; Paternal side DM Current Outpatient Medications Medication Sig Dispense Refill tiotropium bromide (SPIRIVA RESPIMAT) 1.25 mcg/actuation mist Inhale 2 Puffs as instructed once daily. 1 Each 11 benzonatate (TESSALON PERLES) 100 mg capsule Take 1 capsule by mouth three times daily as needed for cough. 30 capsule 5 amLODIPine (NORVASC) 5 mg tablet Take 1 tablet by mouth once daily. 90 tablet 3 hydroCHLOROthiazide (HYDRODIURIL, ESIDRIX) 25 mg tablet Take 1 tablet by mouth once daily. 90 tablet 3 metFORMIN (GLUCOPHAGE) 500 mg tablet Take 1 tablet by mouth twice daily with meals. 180 tablet 3 lidocaine (XYLOCAINE) 5 % ointment APPLY TO THE AFFECTED AREA(S) NEEDED 133.68 g 0 albuterol HFA (PROVENTIL HFA, VENTOLIN HFA) 90 mcg/actuation inhaler Inhale 2 Puffs as instructed every 4 hours as needed. 18 g 2 cyclobenzaprine (FLEXERIL) 10 mg tablet TAKE 1/2 (ONE-HALF) OF A TABLET BY MOUTH EVERY 8 HOURS NEEDED FOR MUSCLE SPASMS or for pain for up to 5 (FIVE) days 30 tablet 2 naproxen (NAPROSYN) 500 mg tablet Take 1 tablet by mouth twice daily with meals. (Patient not taking: Reported on 02/23/2022) 60 tablet 5 No current facility-administered medications for this visit. Review of Systems Constitutional: Positive for activity change (due to pain). Negative for chills, diaphoresis, fatigue and fever. Eyes: Negative. Respiratory: Negative. Cardiovascular: Negative. Gastrointestinal: Negative. Genitourinary: Negative. Musculoskeletal: Positive for arthralgias (chronic), back pain (chronic) and neck pain (chronic). Negative for joint swelling and myalgias. Skin: Negative. Neurological: Negative for weakness, numbness and headaches. Hematological: Negative. BP 146/76 Pulse 106 Temp 98.2 Ht 5' 9 (1.75m) Wt 196 lb (88.9kg) SpO2 98% BMI 28.93 kg/(m^2). Physical Exam Vitals and nursing note reviewed. Constitutional: General: She is not in acute distress. Appearance: Normal appearance. HENT: Head: Normocephalic. Cardiovascular: Rate and Rhythm: Regular rhythm. Tachycardia present. Heart sounds: Normal heart sounds, S1 normal and S2 normal. Pulmonary: Effort: Pulmonary effort is normal. Breath sounds: Normal breath sounds. Musculoskeletal: Cervical back: Neck supple. Muscular tenderness present. Thoracic back: Tenderness and bony tenderness present. No swelling or edema. Decreased range of motion. Back: Skin: General: Skin is warm and dry. Findings: No ecchymosis, erythema or rash. Neurological: Mental Status: She is alert and oriented to person, place, and time. Psychiatric: Mood and Affect: Mood is anxious. Behavior: Behavior normal. Cognition and Memory: Cognition normal. No visits with results within 1 Day(s) from this visit. Latest known visit with results is: Procedure on 02/20/2022 Component Date Value Ref Range Status FVC PRE (L) 02/20/2022 3.38 L Final FVC POST (L) 02/20/2022 3.51 L Final FEV1 PRE (L) 02/20/2022 2.17 L Final FEV1_POST (L) 02/20/2022 2.29 L Final FEV1/FVC PRE (%) 02/20/2022 64 % Final FEV1/FVC POST (%) 02/20/2022 65 % Final [id number]% PRE (L/S) 02/20/2022 0.98 L/S Final [id number]% POST (L/S) 02/20/2022 1.12 L/S Final PEF PRE (L/S) 02/20/2022 4.90 L/S Final PEF POST (L/S) 02/20/2022 6.66 L/S Final ASSESSMENT/PLAN: 1. Midline thoracic back pain, unspecified chronicity - ICD9: 724.1, ICD10: M54.6 (primary diagnosis) - Compression fracture at T6, XR results pending - Ice for localized tenderness - Warm moist heat for 20 min three times a day - Prednisone burst- see orders - Muscle relaxant- see orders - Follow up if symptoms persist or worsen - PREDNISONE 20 MG TABLET 2. Compression fracture of T6 vertebra, initial encounter ([facility]) - ICD9: 805.2, ICD10: S22.050A - Refer to Dr. Deepak Campbell in [place] - Will not prescribe pain medications due to history of opioid/narcotic abuse. - CONSULT TO ORTHOPAEDIC SURGERY - PREDNISONE 20 MG TABLET New medication(s) prescribed today: Yes: Prednisone. Discussed new medication dosage, usage, goals of therapy, and side effects. Patient has been apprised of any potential drug interactions to be aware of. Patient expresses understanding. Counseling completed in adopting health behaviors such as avoiding excessive alcohol use, avoid tobacco use, improve nutrition, and engage in physical activities. Copy of written care plan, clinical summary, treatment plan, new medications, goals, and self management requirements were given to patient. Meredith Masterson APRN.JENNA documented in this encounter [facility] 02-21-2022 Miscellaneous Notes Patient called. Verified name and date of . Would like to speak to Francisco regarding results. Kathie Loco LPN I left a message with the patient to call back to discuss results. Her spirometry shows mild obstruction. She may benefit from a long acting bronchodilator if she is still having difficulty with coughing and wheezing. documented in this encounter [facility] 02-21-2022 Miscellaneous Notes Noted Called pt let her know the information pt stated she has an apt with [facility] on Saturday and she will see what she does. Pt stated she is in so much pain cant wait for pain management. Instructed pt that she can go to the ER if her pain is that bad she stated she cant drive due to the pain. She is just going to wait till her apt Karime Henderson [place] Unfortunately I can not. She has naproxen at home she can use as needed. I would caution on over use secondary to kidney affects. I can refer her to pain management. They can maybe do an injection. She can not get pain meds due to her daily use of marijuana Pt did fall a while ago she thought she just pulled muscle. Pt is wanting to know if you would be willing to send something in for her for pain Karime Henderson MA Did she have a fall or injury? Is she having any numbness, tingling? We can also send her to ortho spine, often there is not much they can do for this. Other option is to go to pain management. Called pt let her know the results pt stated that she is in extreme pain pt may go to the ED today. Please place order for Xray and bone density Karime Henderson MA ----- Message from Yenny Neely APRN.OTOLARYNGOLOGY SURGEON sent at 02/19/2022 12:21 PM EST ----- Let pt know that I would recommend an xray of thoracic spine and also a bone density test. Any hx of injury? Yenny ----- Message ----- From: Catia Sultana APRN.OTOLARYNGOLOGY SURGEON Sent: 02/19/2022 12:12 PM EST To: Yenny Neely APRN.JENNA Update on incidental findings noted on CT Chest; Compression fracture of the vertebral body of T6. Please advise patient on additional images for evaluation. Thank you, Catia Sultana APRN.OTOLARYNGOLOGY SURGEON documented in this encounter [facility] 02-20-2022 History of Present illness Narrative PULM FUNCTION SMARTBLOCK: Provider: Francisco Montes APRN.OTOLARYNGOLOGY SURGEON Spirometry w/BD: 1 documented in this encounter [facility] 02-20-2022 Instructions Yenny Neely APRN.JENNA - 02/20/2022 7:21 AM EST BONE MINERAL DENSITY PATIENT INSTRUCTIONS ======= Bone mineral density testing measures the amount of calcium in certain parts of your bones. This information determines how strong your bones are. The test is used to detect osteoporosis, a disease in which the bone's mineral content and density are low, increasing a person's risk of fractures. The lumbar spine (lower back) and the hip are the skeletal sites usually examined. For the test, remember that: 1. You cannot take this test if you are . 2. Eat a normal diet on the day of the test. 3. Take your medications as you normally would. 4. DO NOT take calcium supplements (such as Tums) for 24 hours before the test. 5. On the day of the test, leave valuables (jewelry or credit cards) at home. 6. The test should be performed prior to oral, rectal or IV contrast studies, or at least 7 days after any of these studies. For the test, you may be asked to wear a hospital gown. You will lie on your back, on a padded table, in a comfortable position. Generally, you can resume your usual activities immediately. documented in this encounter [facility] 02-19-2022 Miscellaneous Notes Spoke with patient discussed CT Chest findings: Showed ANGELO 3 mm nodule, no additional concerning lung nodules noted. Advised to return to [facility] next year 02/2023. - Mild emphysema noted on CT, pt scheduled for PFTs tomorrow. -Age-indeterminate compression fracture of the vertebral body of T6 noted on CT. Recommended follow up with PCP for additional imaging for evaluation. Patient comprehends and agreeable with plan. Catia Sultana APRN.JENNA documented in this encounter [facility] 02-12-2022 Miscellaneous Notes Smoking Cessation Navigation Outcome of contact: Left Message Comments: A voicemail has been left for this patient regarding Tobacco Cessation support options. If this patient has any further questions they can email us at or call us at [phone]. [facility] [place] Hand/Smoking Cessation Navigator: Jamzine Smith, [facility] ED documented in this encounter [facility] 02-07-2022 Alma Montes APRN.CNP - 02/07/2022 10:55 AM EST Unintentional weight loss-Diagnostic CT scan of chest ordered. We will call you with results Wheezing and persistent cough-will get spirometry testing, we will call you with the results 3. Current smoking-referral to smoking cessation program-they will call you documented in this encounter [facility] 02-07-2022 History of Present illness Narrative Images from the original note were not included. LUNG SCREENING VISIT PRIMARY CARE PHYSICIAN: Yenny Neely APRN.CNP PULMONARY PROVIDER: none Results will be communicated via letter or electronic record if applicable. Visit Delivery: In Person Patient Visit Type: New to Screening Current smoker Exam Type: CT Chest diagnostic Number of Pack Years: 46 Current smoker (=0) Results will be communicated via letter or electronic record. REQUESTER: The referring provider advised the patient to have screening. HISTORY OF PRESENT ILLNESS: Emilia Flynn is a 61 year old active smoker who presents for lung screening. She reports having weight loss over several months. She is eating and her blood sugars have been up. She has type 2 DM, no medication changes. She has had a decreased appetite, a persistent cough x 6 weeks and wheezing. She has been using her albuterol more. Using tessalon perles, but they don't help. She saw PCP 01/22/22. She did have some bloody sputum today, but she felt it was due to a dental visit yesterday she had a deep cleaning. Respiratory symptoms include: SOB: Yes, since being sick Chest tightness: Yes Coughing: Yes: With mucus Clear, brown mucous, some blood yesterday due to dental visit. Hemoptysis: No Wheezing: Yes Fever/Chills: Yes, has fibromyalgia and gets these symptoms with this Recent Respiratory Infection: Yes, URI for 6 weeks Unintentional weight loss: Yes, 18 lbs weight loss since 05/2021, appetite is poor/fair. Blood sugars have been running higher. Last 6 Encounter Wt Readings: Date: Wt: 02/07/2022 88.9 kg (196 lb) 01/22/2022 89.8 kg (198 lb) 08/08/2021 91.6 kg (202 lb) 07/17/2021 96.1 kg (211 lb 12.8 oz) 06/15/2021 95.8 kg (211 lb 3.2 oz) 05/22/2021 97.1 kg (214 lb) ECOG PERFORMANCE STATUS: 1- Restricted in physically strenuous activity. Carries out light duty. Modified Medical Research [place] Dyspnea Scale (MMRC) I get short of breath when hurrying on level ground or walking up a slight hill 1 Lung Cancer Risk Factors: 1.Tobacco Use: Start Age 15, Quit Age N/A , Average packs per day 1, Pack Years 46. 2. Passive Smoke Exposure: Yes as a child. 3. Personal hx of malignancy: No. 4. Significant exposures (1 year or more of exposure): cleaning chemicals . 5. Race: White. 6. Education:Highschool graduate 7. BMI:Body mass index is 28.94 kg/m . 8. COPD: No 9. Pneumonia in the past 5 years: No 10. Is there a history of lung cancer in a first degree relative? No. 11. Is there a history of lung cancer in a non first degree relative? No 12. Is there a history of any other cancer in a first degree relative? mother had thyroid cancer . PAST MEDICAL HISTORY Diagnosis Date Abdominal bloating Abnormal mammography Anxiety Asthma mild intermittent Body mass index 30.0-30.9, adult Breast lump left Chest wall pain Chronic depression Chronic pain Degeneration of cervical intervertebral disc Depressive disorder Dysmenorrhea Edema Essential hypertension h/o suicide attempt FH: cardiovascular disease Fibromyalgia Foot pain [place] (generalized anxiety disorder) GERD (gastroesophageal reflux disease) Heel pain left heel spur, see xray from 01/13/10 Hyperglycemia Hyperlipemia Hypertriglyceridemia IBS (irritable bowel syndrome) Low back pain Lumbar stenosis Lumbar spondylolysis L4-L5; MRI 12/2005 Menometrorrhagia Menopausal flushing Migraine Muscle pain Myalgia and myositis Narcotic drug use Obesity Osteoarthritis (arthritis due to wear and tear of joints) Lumbar, Left foot, Right hip Periodic edema Primary fibromyalgia syndrome Spinal stenosis Spinal stenosis of lumbar region L4-L5; MRI 12/2005 Spinal stenosis of lumbar region without neurogenic claudication Tobacco dependence syndrome Trochanteric bursitis Type 2 diabetes mellitus (HCC) PAST SURGICAL HISTORY Procedure Laterality Date APPENDECTOMY KNEE LEFT OP SURGERY 01/24/2018 KNEE RIGHT OP SURGERY 07/22/2018 LIG/TRNSXJ FLP TUBE ABDL/VAG APPR UNI/BI Dr. Erin Werner PAST SURGICAL HISTORY OF ovarian cyst- right side at age 28 yo TONSILLECTOMY AND ADENOIDECTOMY HX TREAT ECTOPIC FAMILY HISTORY Problem Relation Age of Onset other (Heart Disease) Father other (Thryoid) Other Maternal Side of Family other (fibromyalgia) Other other (DJD) Sister other (schizophrenic) Sister other (bipolar) Sister other (Other) Other Dtr DM; Paternal side DM benzonatate (TESSALON PERLES) 100 mg capsule Take 1 capsule by mouth three times daily as needed for cough. amLODIPine (NORVASC) 5 mg tablet Take 1 tablet by mouth once daily. hydroCHLOROthiazide (HYDRODIURIL, ESIDRIX) 25 mg tablet Take 1 tablet by mouth once daily. metFORMIN (GLUCOPHAGE) 500 mg tablet Take 1 tablet by mouth twice daily with meals. lidocaine (XYLOCAINE) 5 % ointment APPLY TO THE AFFECTED AREA(S) NEEDED naproxen (NAPROSYN) 500 mg tablet Take 1 tablet by mouth twice daily with meals. albuterol HFA (PROVENTIL HFA, VENTOLIN HFA) 90 mcg/actuation inhaler Inhale 2 Puffs as instructed every 4 hours as needed. cyclobenzaprine (FLEXERIL) 10 mg tablet TAKE 1/2 (ONE-HALF) OF A TABLET BY MOUTH EVERY 8 HOURS NEEDED FOR MUSCLE SPASMS or for pain for up to 5 (FIVE) days ALLERGIES Allergen Reactions Aspirin GI Upset Latex Rash Vicodin [Hydrocodon* Hives Patient states she now tolerates hydrocodone 07/2018 The medications and allergies were reviewed and reconciled for this patient and deemed current. Health Maintenance Immunization History Administered Date(s) Administered Pneumovax 07/17/2021 Tdap (Age 7+) 07/17/2021 Colonoscopy: Mammogram: 01/24/2022 DATA REVIEW I have directly visualized the testing documented: Prior Imaging: CT: No. CXR: No. Pulmonary Function Testing: none PHYSICAL EXAM: BP 134/82 (BP Site: Left Arm, BP Position: Sitting, BP Cuff Size: Large Adult) Pulse 97 Ht 175.3 cm (5' 9 ) Wt 88.9 kg (196 lb) SpO2 97% BMI 28.94 kg/m PHYSICAL EXAMINATION: General appearance: Well appearing, alert, in no acute distress, well-hydrated, well nourished. Skin: [place], warm and dry. No rashes Neck: Positive findings: thyroid: nodular No adenopathy. Some diffuse tenderness. Lungs: Lungs clear to auscultation. No wheezing, rhonchi, rales. Heart: RRR without murmur, gallop, or rubs. No ectopy Neuro: Oriented X 3 ASSESSMENT and RECOMMENDATIONS: 1. Screening for lung cancer: Six year risk for lung cancer: 2.9% Source: [employer] I have determined that the patient is eligible for a low dose CT based on age, absence of signs or symptoms of lung cancer, and total pack years: No. She has unintentional weight loss 18 lbs since 05/2021. Associated symptoms loss of appetite, persistent cough, and wheezing. A diagnostic study is ordered. The patient and I engaged in shared decision making, including the use of one or more decision aids, to include benefits, harms, follow-up diagnostic testing, over-diagnosis, false positive rate, and total radiation exposure. The patient understands and feels comfortable with it: No. The patient was counseled on the importance of adherence to annual LDCT lung cancer screening, impact of comorbidities and ability or willingness to undergo diagnosis and treatment. The patient understands and feels comfortable with it:No. 2. Nicotine dependence: The patient was counseled on the importance of smoking cessation if current smoker and, if appropriate, offered additional tobacco cessation counseling services - Smoking Cessation Counseling. SMOKING CESSATION COUNSELING Smoking cessation methods including Nicotine Replacement Therapies and Behavior Modification were discussed with the patient and assistance offered. The medical conditions adversely affected by cigarette use include:COPD, Emphysema, and Lung Cancer. The patient is currently not ready to quit. I personally spent 5 minutes in counseling. The time spent in smoking cessation counseling is exclusive of any other counseling during this visit. 3. Unintentional weight loss: She has experienced decreased appetite and documented weight loss 18 lbs since 05/2021. 4. Persistent cough-x 6 weeks of coughing and wheezing, increased use of albuterol. Using tessalon perles. Saw PCP 01/22/2022. 5. Wheezing: Spirometry ordered, use albuterol PRN. MDM: I spent a total of 30 minutes on the date of the service which included preparing to see the patient, [id number] patient care, completing clinical documentation, performing a medically appropriate examination, counseling and educating the patient/family/caregiver, ordering medications, tests, or procedures, and care coordination (not separately reported). Francisco Montes APRN.CNP NPI #: [id number] February 07, 2022 10:24 AM Associated attestation - Catia Sultana APRN.CNP - 02/07/2022 2:43 PM EST TEACHING PROVIDER (Physician/PA/JEAN CARLOS) NOTE OF PERSONAL INVOLVEMENT IN CARE: I have personally seen and examined the patient and performed the medical decision-making components. I have reviewed the Francisco Montes 's documentation and verified the findings in the note as written. Any additions or changes are noted in bold/italics. 1. Unintentional weight loss of more than 10 pounds in 90 days - ICD9: 783.21, ICD10: R63.4 (primary diagnosis) 2. Tobacco use current - ICD9: 305.1, ICD10: Z72.0 3. Persistent cough for 3 weeks or longer - ICD9: 786.2, ICD10: R05.3 4. Wheezing - ICD9: 786.07, ICD10: R06.2 - SPIROMETRY - BASELINE AND POST DILATOR 5. Encounter for screening for lung cancer - ICD9: V76.0, ICD10: Z12.2 Patient not eligible for LDCT scan due to significant unintentional weight loss over 6 months ~18 lbs Signature: Catia Sultana APRN.CNP Date: 02/07/2022 Time: 2:34 PM documented in this encounter [facility] 01-24-2022 Miscellaneous Notes Called pt let her know the results Karime Henderson MA ----- Message from Yenny Neely APRN.CNP sent at 01/24/2022 2:15 PM EST ----- Mammogram negative IMPRESSION IMPRESSION: NEGATIVE There is no mammographic evidence of malignancy. A 1 year screening mammogram is recommended. documented in this encounter [facility] 01-24-2022 Miscellaneous Notes [facility] [address] [place] [address] January 24, 2022 PID: [id number] Emilia ThomasArtur Flynn [address] [facility] [address] [place] [address] Dear Ms. Enrique Flynn, We are pleased to inform you that the results of your recent breast imaging exam on 01/23/2022 are normal. Early detection of cancer is very important. We also understand recommendations regarding breast cancer screening are controversial. Please discuss with your primary care provider which strategy is best for you and whether a mammogram is right for you. Your imaging studies and report will be kept on file at [facility] as part of your permanent medical record and are available for your continuing care. Thank you for allowing us to help in meeting your health care needs. Sincerely, Dr. Alicia Interpreting Radiologist [facility] (Normal over 40) documented in this encounter [facility] 01-22-2022 Instructions Yenny Neely APRN.OTOLARYNGOLOGY SURGEON - 01/22/2022 9:30 AM EST ASSESSMENT/PLAN: 1. Type 2 diabetes mellitus without complication, without long-term current use of insulin (HCC) - ICD9: 250.00, ICD10: E11.9 (primary diagnosis) Controlled. - Continue current medications - Encouraged regular aerobic exercise and weight loss - Daily Asprin therapy recommended - BP goal of <130/80 - LDL goal of <100 - METFORMIN 500 MG TABLET - HGBA1C B/O 2. Essential hypertension - ICD9: 401.9, ICD10: I10 - good control - Continue current medication(s) - Encouraged dietary sodium restriction/DASH diet - Recommended regular aerobic exercise. - Recommend home blood pressure monitoring, to bring results in on next visit - Reviewed risks of HTN and principles of treatment - Goal of BP <130/80 - Recommended no refined sugar, low refined starch, healthy oil intake (olive oil), healthy protein (fish) along the lines of the Mediterranean diet. - AMLODIPINE 5 MG TABLET - HYDROCHLOROTHIAZIDE 25 MG TABLET 3. Anxiety and depression - ICD9: 300.00, 311, ICD10: F41.9, F32.A - Chronic stable without medications 4. Tobacco use disorder - ICD9: 305.1, ICD10: F17.200 - Cessation encouraged. - Physiologic and physical aspects of tobacco addiction as well as strategies for quitting were discussed. - Counseling was given focusing on the harmful effects of this addiction especially given the patient's medical condition(s) which will be worsened because of the chemicals in tobacco. - Counseling was given 3-4 minutes. - Recommended to called 1-800-QUIT NOW - CONSULT LUNG CANCER SCREENING CLINIC 5. Encounter for screening mammogram for malignant neoplasm of breast - ICD9: V76.12, ICD10: Z12.31 - YISEL SCREENING 6. Colon cancer screening - ICD9: V76.51, ICD10: Z12.11 - COLOGUARD documented in this encounter [facility] 01-22-2022 History of Present illness Narrative SUBJECTIVE: Emilia Flynn is a 61 year old female who presents in follow up of DM, HTN and Hyperlipidemia. PMH insomnia, chronic pain, anxiety, depression. Patient denies changes in health since last office visit. Reports feeling well. Denies concerns or complaints today. I reviewed her past medical, surgical, social, and family histories today and updated chart. Allergies, chronic medications, and supplements were also reviewed and her list is now up to date. DIABETES MELLITUS: Ms. Enrique Flynn was last seen on 07/17/21. Since our last visit she denies excessive thirst or increased frequency of urination, chest pain or dyspnea , numbness, tingling or pain in extremities, new or unusual visual symptoms, low sugar/hypoglycemic reactions, weight loss/gain, lightheadedness/dizziness, and bowel changes/loose stools. Follows a diabetic diet generally not very much. She is compliant with medication(s) and is tolerating med(s) without any side effects. She reports checking her glucose on a every other day schedule with sugars in the fasting 73-168 range. She is taking metformin 500 mg twice daily. Patient's last HgA1C was Hemoglobin A1C (%) Date Value 12/17/2016 7.0 06/15/2016 6.9 Hemoglobin A1C (POCT) (%) Date Value 07/17/2021 6.7 01/23/2021 6.5 ) Last Ophthalmology exam was 11/14/2019 and was negative for Diabetic Retinopathy. Pt aware she is due. She has appt on 02/01/22. HTN: Ms. Enrique Flynn indicates that she is feeling well and denies any symptoms referable to elevated blood pressure. Specifically denies headache, chest pain, palpitations, dyspnea, peripheral edema, claudication symptoms, orthopnea, fatigue, and PND. Patient denies any side effects of her medication(s) and is compliant with their regimen. She does not check BP's generally. Emilia denies regular aerobic exercise. She watches her diet for sodium, low fat and low cholesterol generally not very much. She is taking norvasc 5 mg daily and HCTZ 25 mg daily. Last 3 Encounter BP Readings: Date: BP: 08/08/2021 122/70 07/17/2021 122/74 06/15/2021 128/76 CMP: Glucose 144 07/19/2021 BUN 16 07/19/2021 Creatinine 0.72 07/19/2021 Sodium 139 07/19/2021 Potassium 3.9 07/19/2021 Chloride 100 07/19/2021 CO2 26 07/19/2021 Protein, Total 7.3 07/19/2021 Albumin 4.5 07/19/2021 Calcium 9.7 07/19/2021 Alkaline Phosphatase 75 07/19/2021 Bilirubin, Total 0.5 07/19/2021 AST 23 07/19/2021 ALT 24 07/19/2021 Hyperlipidemia. Ms. Enrique Flynn reports doing well on current therapy of diet and exercise. Reports side effect(s) of muscle achiness, weakness, and leg cramps. Her most recent lipid panels are: Cholesterol, Total (mg/dL) Date Value 07/19/2021 173 06/20/2020 180 02/18/2019 187 01/20/2018 152 HDL Cholesterol (mg/dL) Date Value 07/19/2021 59 06/20/2020 59 02/18/2019 71 01/20/2018 55 LDL Cholesterol (mg/dL) Date Value 07/19/2021 96 06/20/2020 102 LDL (mg/dL) Date Value 02/18/2019 99 01/20/2018 87 Triglyceride (mg/dL) Date Value 07/19/2021 88 06/20/2020 96 02/18/2019 83 01/20/2018 52 Chronic pain: knees, feet, shoulder. She is taking naproxen daily for management. She also applies topical lidocaine which helps. Anxiety, depression, insomnia: pt reports all 3 are well controlled. 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 Preventative: she is up to date with pneumonia and tetanus vaccine. Declines flu and COVID vaccines. She smokes marijuana daily. She does not exercise. She is not interested in colonoscopy. she is interested in cologuard. She continues to smoke 1-2 PPD. she is interested in lung cancer screening. PAST MEDICAL HISTORY Diagnosis Date Abdominal bloating Abnormal mammography Anxiety Asthma mild intermittent Body mass index 30.0-30.9, adult Breast lump left Chest wall pain Chronic depression Chronic pain Degeneration of cervical intervertebral disc Depressive disorder Dysmenorrhea Edema Essential hypertension h/o suicide attempt FH: cardiovascular disease Fibromyalgia Foot pain [place] (generalized anxiety disorder) GERD (gastroesophageal reflux disease) Heel pain left heel spur, see xray from 01/13/10 Hyperglycemia Hyperlipemia Hypertriglyceridemia IBS (irritable bowel syndrome) Low back pain Lumbar stenosis Lumbar spondylolysis L4-L5; MRI 12/2005 Menometrorrhagia Menopausal flushing Migraine Muscle pain Myalgia and myositis Narcotic drug use Obesity Osteoarthritis (arthritis due to wear and tear of joints) Lumbar, Left foot, Right hip Periodic edema Primary fibromyalgia syndrome Spinal stenosis Spinal stenosis of lumbar region L4-L5; MRI 12/2005 Spinal stenosis of lumbar region without neurogenic claudication Tobacco dependence syndrome Trochanteric bursitis Type 2 diabetes mellitus (HCC) PAST SURGICAL HISTORY Procedure Laterality Date APPENDECTOMY KNEE LEFT OP SURGERY 01/24/2018 KNEE RIGHT OP SURGERY 07/22/2018 LIG/TRNSXJ FLP TUBE ABDL/VAG APPR UNI/BI Dr. Erin Werner PAST SURGICAL HISTORY OF ovarian cyst- right side at age 28 yo TONSILLECTOMY AND ADENOIDECTOMY HX TREAT ECTOPIC Social History Tobacco Use Smoking status: Every Day Packs/day: 0.50 Types: Cigarettes Start date: 03/18/1974 Smokeless tobacco: Never Tobacco comments: Not interested in quitting smoking; Amount: 1-9 cigs/day,4 packs per week Vaping Use Vaping Use: Never used Substance Use Topics Alcohol use: No Drug use: Yes Types: Marijuana Comment: medical marijuana,, marijuana, and prescription drugs; Clean for 6 years ALLERGIES Allergen Reactions Aspirin GI Upset Latex Rash Vicodin [Hydrocodon* Hives Patient states she now tolerates hydrocodone 07/2018 Current Outpatient Medications Medication Sig hydroCHLOROthiazide (HYDRODIURIL, ESIDRIX) 25 mg tablet TAKE 1 TABLET BY MOUTH ONCE DAILY metFORMIN (GLUCOPHAGE) 500 mg tablet Take 1 tablet by mouth twice daily with meals. amLODIPine (NORVASC) 5 mg tablet Take 1 tablet by mouth once daily. lidocaine (XYLOCAINE) 5 % ointment APPLY TO THE AFFECTED AREA(S) NEEDED naproxen (NAPROSYN) 500 mg tablet Take 1 tablet by mouth twice daily with meals. albuterol HFA (PROVENTIL HFA, VENTOLIN HFA) 90 mcg/actuation inhaler Inhale 2 Puffs as instructed every 4 hours as needed. cyclobenzaprine (FLEXERIL) 10 mg tablet TAKE 1/2 (ONE-HALF) OF A TABLET BY MOUTH EVERY 8 HOURS NEEDED FOR MUSCLE SPASMS or for pain for up to 5 (FIVE) days No current facility-administered medications for this visit. Review of Systems Constitutional: Negative for chills, diaphoresis, fever, malaise/fatigue and weight loss. HENT: Negative. Negative for congestion, ear pain, sinus pain, sore throat and tinnitus. All symptoms Eyes: Negative for blurred vision, double vision, photophobia and pain. Respiratory: Positive for cough. Negative for sputum production, shortness of breath and wheezing. Reports Upper resp infection started 16 days ago. With cough and ST. Reports not coughing anything up. Reports taking tessalon perles which is effective Reports sob stable. She was using inhaler 4-5x/day but states now she is down to 2x/day. She normally only uses as needed and it is not usually daily. Cardiovascular: Negative for chest pain, palpitations, orthopnea and leg swelling. Gastrointestinal: Negative for abdominal pain, blood in stool, constipation, diarrhea, heartburn, melena, nausea and vomiting. Genitourinary: Negative for dysuria, frequency, hematuria and urgency. Musculoskeletal: Positive for back pain and myalgias. Negative for falls, joint pain and neck pain. Chronic stable. Skin: Negative for itching and rash. Neurological: Negative for dizziness, tingling, tremors, sensory change, speech change, focal weakness, weakness and headaches. Endo/Heme/Allergies: Negative for environmental allergies and polydipsia. Does not bruise/bleed easily. Psychiatric/Behavioral: Negative for depression and substance abuse. The patient is not nervous/anxious and does not have insomnia. 01/22/22 0900 BP: 110/70 BP Site: Left Arm BP Position: Sitting BP Cuff Size: Large Adult Pulse: 86 Resp: 18 Temp: 36.8 C (98.2 F) TempSrc: Oral SpO2: 95% Weight: 89.8 kg (198 lb) Height: 175.3 cm (5' 9 ) Physical Exam Vitals and nursing note reviewed. Constitutional: General: She is not in acute distress. Appearance: Normal appearance. She is not ill-appearing. HENT: Head: Normocephalic and atraumatic. Nose: Nose normal. No congestion or rhinorrhea. Mouth/Throat: Mouth: Mucous membranes are moist. Pharynx: Oropharynx is clear. Eyes: Conjunctiva/sclera: Conjunctivae normal. Cardiovascular: Rate and Rhythm: Normal rate and regular rhythm. Pulses: Normal pulses. Heart sounds: Normal heart sounds, S1 normal and S2 normal. No murmur heard. Pulmonary: Effort: Pulmonary effort is normal. No respiratory distress. Breath sounds: Normal breath sounds. No decreased breath sounds, wheezing, rhonchi or rales. Abdominal: General: Bowel sounds are normal. There is no distension. Palpations: Abdomen is soft. Tenderness: There is no abdominal tenderness. Musculoskeletal: Right lower leg: No edema. Left lower leg: No edema. Skin: General: Skin is warm and dry. Neurological: Mental Status: She is alert and oriented to person, place, and time. Psychiatric: Mood and Affect: Mood normal. Behavior: Behavior normal. Thought Content: Thought content normal. Judgment: Judgment normal. Component Latest Ref Rng & Units 07/20/2020 01/23/2021 07/17/2021 07/19/2021 Protein, Total 6.3 - 8.0 g/dL 7.3 Albumin 3.9 - 4.9 g/dL 4.5 Calcium 8.5 - 10.2 mg/dL 9.7 Bilirubin, Total 0.2 - 1.3 mg/dL 0.5 Alkaline Phosphatase 34 - 123 U/L 75 AST 13 - 35 U/L 23 ALT 7 - 38 U/L 24 Glucose 74 - 99 mg/dL 144 (H) BUN 7 - 21 mg/dL 16 Creatinine 0.58 - 0.96 mg/dL 0.72 Sodium 136 - 144 mmol/L 139 Potassium 3.7 - 5.1 mmol/L 3.9 Chloride 97 - 105 mmol/L 100 CO2 22 - 30 mmol/L 26 Anion Gap 9 - 18 mmol/L 13 eGFR >=60 mL/min/1.73m 95 WBC 3.70 - 11.00 k/uL 8.26 RBC 3.90 - 5.20 m/uL 4.62 Hemoglobin 11.5 - 15.5 g/dL 14.2 Hematocrit 36.0 - 46.0 % 43.6 MCV 80.0 - 100.0 fL 94.4 MCH 26.0 - 34.0 pg 30.7 MCHC 30.5 - 36.0 g/dL 32.6 RDW-CV 11.5 - 15.0 % 13.8 Platelet Count 150 - 400 k/uL 286 MPV 9.0 - 12.7 fL 10.3 Cholesterol, Total <200 mg/dL 173 Triglyceride <150 mg/dL 88 HDL Cholesterol >39 mg/dL 59 Non HDL Cholesterol <130 mg/dL 114 Fasting Time hrs 12 VLDL Cholesterol <30 mg/dL 18 TC:HDL Ratio <5.10 2.93 LDL Cholesterol <100 mg/dL 96 LDL:HDL Ratio <2.54 1.63 HIV 12 Combo (Ag/Ab) Nonreactive Nonreactive HIV 1/2 Ab HIV Interpretation Hemoglobin A1C (POCT) 4.2 - 5.6 % 6.6 (A) 6.5 6.7 (A) TSH 0.270 - 4.200 mIU/L 1.920 ASSESSMENT/PLAN: 1. Type 2 diabetes mellitus without complication, without long-term current use of insulin (HCC) - ICD9: 250.00, ICD10: E11.9 (primary diagnosis) Controlled. - Continue current medications - Encouraged regular aerobic exercise and weight loss - Daily Asprin therapy recommended - BP goal of <130/80 - LDL goal of <100 - METFORMIN 500 MG TABLET - HGBA1C B/O 2. Essential hypertension - ICD9: 401.9, ICD10: I10 - good control - Continue current medication(s) - Encouraged dietary sodium restriction/DASH diet - Recommended regular aerobic exercise. - Recommend home blood pressure monitoring, to bring results in on next visit - Reviewed risks of HTN and principles of treatment - Goal of BP <130/80 - Recommended no refined sugar, low refined starch, healthy oil intake (olive oil), healthy protein (fish) along the lines of the Mediterranean diet. - AMLODIPINE 5 MG TABLET - HYDROCHLOROTHIAZIDE 25 MG TABLET 3. Anxiety and depression - ICD9: 300.00, 311, ICD10: F41.9, F32.A - Chronic stable without medications 4. Tobacco use disorder - ICD9: 305.1, ICD10: F17.200 - Cessation encouraged. - Physiologic and physical aspects of tobacco addiction as well as strategies for quitting were discussed. - Counseling was given focusing on the harmful effects of this addiction especially given the patient's medical condition(s) which will be worsened because of the chemicals in tobacco. - Counseling was given 3-4 minutes. - Recommended to called 1-800-QUIT NOW - [facility]SULT [facility] 5. Encounter for screening mammogram for malignant neoplasm of breast - ICD9: V76.12, ICD10: Z12.31 - YISEL SCREENING 6. Colon cancer screening - ICD9: V76.51, ICD10: Z12.11 - COLOGUARD All of the above discussed with the patient in detail. Patient is in agreement with the above plan. Yenny Neely APRN.JENNA I spent a total of 55 minutes on the date of the service which included preparing to see the patient, [id number] patient care, completing clinical documentation, obtaining and/or reviewing separately obtained history, performing a medically appropriate examination, counseling and educating the patient/family/caregiver, and ordering medications, tests, or procedures. documented in this encounter [facility] 12-15-2021 Miscellaneous Notes Patient states she needs this today. Nov 01/22/2022 last office visit 08/08/2021. Going out of town needs assap documented in this encounter [facility] 11-15-2021 Miscellaneous Notes Last OV 08/08/21 Apt 01/22/22 Labs 07/19/21 Pharmacy calls in requesting the following refill(s): Requested Prescriptions Pending Prescriptions Disp Refills albuterol HFA (PROVENTIL HFA, VENTOLIN HFA) 90 mcg/actuation inhaler 18 g 2 Sig: Inhale 2 Puffs as instructed every 4 hours as needed. Karime Henderson MA documented in this encounter [facility] 11-14-2021 Miscellaneous Notes Last OV 08/08/21 Apt 01/22/22 Labs 07/19/21 Pharmacy calls in requesting the following refill(s): Requested Prescriptions Pending Prescriptions Disp Refills naproxen (NAPROSYN) 500 mg tablet [Pharmacy Med Name: naproxen 500 mg tablet] 60 tablet 5 Sig: Take 1 tablet by mouth twice daily with meals. Karime Henderson MA documented in this encounter [facility] 10-18-2021 Miscellaneous Notes Last OV 08/08/21 Apt 01/22/22 Labs 07/19/21 Pharmacy calls in requesting the following refill(s): Pending Prescriptions Disp Refills CYCLOBENZAPRINE 10 MG TABLET 30 tablet 2 Sig: TAKE 1/2 (ONE-HALF) OF A TABLET BY MOUTH EVERY 8 HOURS NEEDED FOR MUSCLE SPASMS or for pain for up to 5 (FIVE) days JASMIN: Yes Karime Henderson MA documented in this encounter [facility] 10-12-2021 Miscellaneous Notes Last OV 08/08/21 Apt 01/22/22 Labs 07/19/21 Pharmacy calls in requesting the following refill(s): Pending Prescriptions Disp Refills CYCLOBENZAPRINE 10 MG TABLET 30 tablet 0 Sig: TAKE 1/2 (ONE-HALF) OF A TABLET BY MOUTH EVERY 8 HOURS NEEDED FOR MUSCLE SPASMS or FOR PAIN for up to 5 (FIVE) days JASMIN: Yes Karime Henderson MA documented in this encounter [facility] 09-15-2021 Miscellaneous Notes Pharmacy has valid script Bambi Avilez MA documented in this encounter [facility] 08-08-2021 History of Present illness Narrative This note was created using Sparkcentral[employer]. Subjective Emilia Flynn is a 61 year old female here today for complaints of muscle spasms. PMH chronic pain, DM, HTN, anxiety, depression, tobacco use. I reviewed her past medical, surgical, social, and family histories today and updated chart. Allergies, chronic medications, and supplements were also reviewed and her list is now up to date. She has hx of chronic pain, especially neck and right shoulder. Reports spasms and pain with certain fast repetative movements. 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 She reports HR recommended she fill out FMLA paper work. She reports she at times due to her sugar or her pain she will have to leave once or twice a month. Reports this is to help her keep her job. Reports when she is put on a fast machine it aggravates her symptoms more. Reports she is okay on the slow machine. Requesting FMLA start 08/02/21. ALLERGIES Allergen Reactions Aspirin GI Upset Latex Rash Vicodin [Hydrocodon* Hives Patient states she now tolerates hydrocodone 07/2018 Current Outpatient Medications Medication Sig Dispense Refill naproxen (NAPROSYN) 500 mg tablet Take 1 tablet by mouth twice daily with meals. 60 tablet 2 lidocaine (XYLOCAINE) 5 % ointment APPLY TO THE AFFECTED AREA(S) NEEDED 120 g 1 cyclobenzaprine (FLEXERIL) 10 mg tablet TAKE 1/2 (ONE-HALF) OF A TABLET BY MOUTH EVERY 8 HOURS NEEDED FOR MUSCLE SPASMS or FOR PAIN for up to 5 (FIVE) days 30 tablet 0 metFORMIN (GLUCOPHAGE) 500 mg tablet Take 1 tablet by mouth twice daily with meals. 180 tablet 1 amLODIPine (NORVASC) 5 mg tablet Take 1 tablet by mouth once daily. 90 tablet 1 hydroCHLOROthiazide (HYDRODIURIL, ESIDRIX) 25 mg tablet TAKE 1 TABLET BY MOUTH ONCE DAILY 90 tablet 1 albuterol HFA (PROVENTIL HFA, VENTOLIN HFA) 90 mcg/actuation inhaler Inhale 2 Puffs as instructed every 4 hours as needed. 18 g 2 No current facility-administered medications for this visit. ACTIVE PROBLEM LIST Anxiety and Depression Essential Hypertension Muscle Spasms of Both Lower Extremities Tobacco Use Disorder Type 2 Diabetes Mellitus (Hcc) Depressive Disorder Chronic Pain PAST MEDICAL HISTORY Diagnosis Date Abdominal bloating Abnormal mammography Anxiety Asthma mild intermittent Body mass index 30.0-30.9, adult Breast lump left Chest wall pain Chronic depression Chronic pain Degeneration of cervical intervertebral disc Depressive disorder Dysmenorrhea Edema Essential hypertension h/o suicide attempt FH: cardiovascular disease Fibromyalgia Foot pain [place] (generalized anxiety disorder) GERD (gastroesophageal reflux disease) Heel pain left heel spur, see xray from 01/13/10 Hyperglycemia Hyperlipemia Hypertriglyceridemia IBS (irritable bowel syndrome) Low back pain Lumbar stenosis Lumbar spondylolysis L4-L5; MRI 12/2005 Menometrorrhagia Menopausal flushing Migraine Muscle pain Myalgia and myositis Narcotic drug use Obesity Osteoarthritis (arthritis due to wear and tear of joints) Lumbar, Left foot, Right hip Periodic edema Primary fibromyalgia syndrome Spinal stenosis Spinal stenosis of lumbar region L4-L5; MRI 12/2005 Spinal stenosis of lumbar region without neurogenic claudication Tobacco dependence syndrome Trochanteric bursitis Type 2 diabetes mellitus (HCC) PAST SURGICAL HISTORY Procedure Laterality Date APPENDECTOMY KNEE LEFT OP SURGERY 01/24/2018 KNEE RIGHT OP SURGERY 07/22/2018 LIG/TRNSXJ FLP TUBE ABDL/VAG APPR UNI/BI Dr. Erin Werner PAST SURGICAL HISTORY OF ovarian cyst- right side at age 28 yo TONSILLECTOMY AND ADENOIDECTOMY HX TREAT ECTOPIC Social History Tobacco Use Smoking status: Current Every Day Smoker Packs/day: 0.50 Types: Cigarettes Start date: 03/18/1974 Smokeless tobacco: Never Used Tobacco comment: Not interested in quitting smoking; Amount: 1-9 cigs/day,4 packs per week Vaping Use Vaping Use: Never used Substance Use Topics Alcohol use: No Drug use: Yes Types: Marijuana Comment: medical marijuana,, marijuana, and prescription drugs; Clean for 6 years Family History Problem Relation Age of Onset other (Heart Disease) Father other (Thryoid) Other Maternal Side of Family other (fibromyalgia) Other other (DJD) Sister other (schizophrenic) Sister other (bipolar) Sister other (Other) Other Dtr DM; Paternal side DM Review of Systems Constitutional: Negative for activity change, appetite change, chills, diaphoresis, fatigue, fever and unexpected weight change. Respiratory: Negative for cough, chest tightness, shortness of breath and wheezing. Cardiovascular: Negative for chest pain, palpitations and leg swelling. Musculoskeletal: Positive for arthralgias, back pain, myalgias and neck pain. Chronic Neurological: Negative for dizziness, light-headedness and headaches. Psychiatric/Behavioral: Negative for dysphoric mood. The patient is not nervous/anxious. Objective BP 122/70 (BP Site: Right Arm, BP Position: Sitting, BP Cuff Size: Regular Adult) Pulse 90 Temp 36.8 C (98.2 F) (Oral) Resp 18 Ht 175.3 cm (5' 9 ) Wt 91.6 kg (202 lb) SpO2 97% BMI 29.83 kg/m Physical Exam Vitals and nursing note reviewed. Constitutional: General: She is not in acute distress. Appearance: Normal appearance. She is not ill-appearing. HENT: Head: Normocephalic and atraumatic. Cardiovascular: Rate and Rhythm: Normal rate and regular rhythm. Pulses: Normal pulses. Heart sounds: Normal heart sounds. Pulmonary: Effort: Pulmonary effort is normal. Breath sounds: Normal breath sounds. Skin: General: Skin is warm and dry. Neurological: Mental Status: She is alert and oriented to person, place, and time. Psychiatric: Mood and Affect: Mood normal. Behavior: Behavior normal. Thought Content: Thought content normal. Judgment: Judgment normal. ASSESSMENT/PLAN: 1. Chronic right shoulder pain - ICD9: 719.41, 338.29, ICD10: M25.511, G89.29 (primary diagnosis) - Chronic. Stable. Pain increase with repetitive movement. Agree with FMLA - pt to drop off paper work to be filled out. - continue ibuprofen 2. Other chronic pain - ICD9: 338.29, ICD10: G89.29 - chronic see above 3. Muscle spasms of both lower extremities - ICD9: 728.85, ICD10: M62.838 - chronic, upper shoulder and neck. See above. - continue muscle relaxer. Yenny Neely APRN.OTOLARYNGOLOGY SURGEON documented in this encounter [facility] 07-20-2021 Miscellaneous Notes Patient informed. Bambi Avilez MA No answer requesting a call back Stefanie Morrow MA ----- Message from Yenny Neely APRN.OTOLARYNGOLOGY SURGEON sent at 07/19/2021 4:47 PM EDT ----- HIV negative documented in this encounter [facility] 07-19-2021 Miscellaneous Notes Called pt let her know the results Karime Henderson MA ----- Message from Yenny Neely APRN.OTOLARYNGOLOGY SURGEON sent at 07/19/2021 11:31 AM EDT ----- Cmp okay sugar elevated but is known diabetic Tsh cbc and lipids are all normal documented in this encounter [facility] 07-17-2021 Miscellaneous Notes Pharmacy has valid script. Bambi Avilez MA documented in this encounter [facility] 07-17-2021 Instructions Yenny Neely APRN.OTOLARYNGOLOGY SURGEON - 07/17/2021 10:01 AM EDT ASSESSMENT/PLAN: 1. Type 2 diabetes mellitus without complication, without long-term current use of insulin (HCC) - ICD9: 250.00, ICD10: E11.9 (primary diagnosis) Controlled. - Continue current medications - Blood glucose monitoring on a once a day schedule - Ophthalmology referral for eval/management of diabetic eye changes - Encouraged regular aerobic exercise and weight loss - Discussed diabetic education issues of nursing home diabetic complications, hypoglycemic symptoms, hyperglycemic symptoms, diet, medications- side effects and need for compliance, importance of exercise and importance of annual examinations with Opthalmology with patient. - BP goal of <130/80 - LDL goal of <100 - METFORMIN 500 MG TABLET - ALBUMIN/CREAT RATIO RND UR - CBC - COMP METABOLIC PANEL 2. Essential hypertension - ICD9: 401.9, ICD10: I10 - good control - Continue current medication(s) - Encouraged dietary sodium restriction/DASH diet - Recommended regular aerobic exercise. - Recommend home blood pressure monitoring, to bring results in on next visit - Discussed need and benefit for weight loss. - Reviewed risks of HTN and principles of treatment - Goal of BP <130/80 - Recommended no refined sugar, low refined starch, healthy oil intake (olive oil), healthy protein (fish) along the lines of the Mediterranean diet. - AMLODIPINE 5 MG TABLET 3. Bilateral foot pain - ICD9: 729.5, ICD10: M79.671, M79.672 - LIDOCAINE 5 % TOPICAL OINTMENT 4. Chronic right shoulder pain - ICD9: 719.41, 338.29, ICD10: M25.511, G89.29 - NAPROXEN 500 MG TABLET 5. Insomnia, unspecified type - ICD9: 780.52, ICD10: G47.00 6. Anxiety and depression - ICD9: 300.00, 311, ICD10: F41.9, F32.A 7. Tobacco use disorder - ICD9: 305.1, ICD10: F17.200 - Cessation encouraged. - Physiologic and physical aspects of tobacco addiction as well as strategies for quitting were discussed. - Counseling was given focusing on the harmful effects of this addiction especially given the patient's medical condition(s) which will be worsened because of the chemicals in tobacco. - Counseling was given 3-4 minutes. - Recommended to called 1-800-QUIT NOW 8. Need for Tdap vaccination - ICD9: V06.1, ICD10: Z23 - TDAP VACCINE AGE 7+ IM - IMADM PRQ ID SUBQ/IM NJXS 1 VACC 9. Need for pneumococcal vaccination - ICD9: V03.82, ICD10: Z23 - PNEUMOCOCCAL IMMUNIZATION PPSV 23 - IMADM PRQ ID SUBQ/IM NJXS 1 VACC 10. Screening for thyroid disorder - ICD9: V77.0, ICD10: Z13.29 - TSH BLD 11. Screening for lipid disorders - ICD9: V77.91, ICD10: Z13.220 - LIPID PANEL BASIC 12. Screening for HIV (human immunodeficiency virus) - ICD9: V73.89, ICD10: Z11.4 - HIV 1 2 COMBO(AG/AB),WITH REFLEX TO DIFFERENTIATION Yenny Neely APRN.OTOLARYNGOLOGY SURGEON documented in this encounter [facility] 07-17-2021 History of Present illness Narrative SUBJECTIVE: Emilia Flynn is a 61 year old female who presents in follow up of DM, HTN and Hyperlipidemia. PMH insomnia, chronic pain, hx drug abuse, anxiety, depression, insomnia. Patient denies changes in health since last office visit. Reports feeling well. Denies concerns or complaints today. I reviewed her past medical, surgical, social, and family histories today and updated chart. Allergies, chronic medications, and supplements were also reviewed and her list is now up to date. DIABETES MELLITUS: Ms. Enrique Flynn was last seen on 01/23/21. Since our last visit she denies excessive thirst or increased frequency of urination, chest pain or dyspnea , numbness, tingling or pain in extremities, new or unusual visual symptoms, low sugar/hypoglycemic reactions, weight loss/gain, lightheadedness/dizziness and bowel changes/loose stools. Follows a diabetic diet some of the time. She is compliant with medication(s) and is tolerating med(s) without any side effects. She reports checking her glucose on a once a day schedule with sugars in the fasting 90-120s range. She is taking metformin 500 mg twice daily. Patient's last HgA1C was Hemoglobin A1C (%) Date Value 12/17/2016 7.0 06/15/2016 6.9 Hemoglobin A1C (POCT) (%) Date Value 01/23/2021 6.5 07/20/2020 6.6 ) Last Ophthalmology exam was 11/13/20 at [facility] and was negative for Diabetic Retinopathy HTN: Ms. Enrique Flynn indicates that she is feeling well and denies any symptoms referable to elevated blood pressure. Specifically denies headache, chest pain, palpitations, dyspnea, peripheral edema, claudication symptoms, orthopnea, fatigue and PND. Patient denies any side effects of her medication(s) and is compliant with their regimen. She does not check BP's generally. Emilia denies regular aerobic exercise. She watches her diet for sodium, low fat and low cholesterol some of the time. She is taking HCTZ 25 mg daily and norvasc 5 mg daily. Last 3 Encounter BP Readings: Date: BP: 07/17/2021 122/74 06/15/2021 128/76 05/22/2021 144/82 CMP: Glucose 137 06/20/2020 BUN 19 06/20/2020 Creatinine 0.75 06/20/2020 Sodium 138 06/20/2020 Potassium 4.2 06/20/2020 Chloride 101 06/20/2020 CO2 26 06/20/2020 Protein, Total 7.2 06/20/2020 Albumin 4.2 06/20/2020 Calcium 9.6 06/20/2020 Alkaline Phosphatase 72 06/20/2020 Bilirubin, Total 0.3 06/20/2020 AST 13 06/20/2020 ALT 12 06/20/2020 Hyperlipidemia. Ms. Enrique Flynn reports doing well on current therapy of diet and exercise. She is was not able to tolerate statin and does not want to try any other ones. She reports side effect(s) of muscle achiness, weakness and leg cramps. Her most recent lipid panels are: Cholesterol, Total (mg/dL) Date Value 06/20/2020 180 02/18/2019 187 01/20/2018 152 HDL Cholesterol (mg/dL) Date Value 06/20/2020 59 02/18/2019 71 01/20/2018 55 LDL Cholesterol (mg/dL) Date Value 06/20/2020 102 LDL (mg/dL) Date Value 02/18/2019 99 01/20/2018 87 Triglyceride (mg/dL) Date Value 06/20/2020 96 02/18/2019 83 01/20/2018 52 Chronic pain: knees, feet, shoulder. She is taking naproxen daily for management. She also applies topical lidocaine which helps. Right shoulder pain: she saw Dr Spain last week. Reports bone spurs and some tearing. Reports he ordered an MRI. She is taking naproxen twice daily and tylenol as needed. Anxiety, depression, insomnia: pt reports all 3 are well controlled. 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 Preventative: she is due for her pneumonia vaccine and tetanus. She is willing to get both today. She smokes marijuana daily. She does not exercise. She is not interested in colonoscopy. She continues to smoke 1 PPD. PAST MEDICAL HISTORY Diagnosis Date Abdominal bloating Abnormal mammography Anxiety Asthma mild intermittent Body mass index 30.0-30.9, adult Breast lump left Chest wall pain Chronic depression Chronic pain Degeneration of cervical intervertebral disc Depressive disorder Dysmenorrhea Edema Essential hypertension h/o suicide attempt FH: cardiovascular disease Fibromyalgia Foot pain [place] (generalized anxiety disorder) GERD (gastroesophageal reflux disease) Heel pain left heel spur, see xray from 01/13/10 Hyperglycemia Hyperlipemia Hypertriglyceridemia IBS (irritable bowel syndrome) Low back pain Lumbar stenosis Lumbar spondylolysis L4-L5; MRI 12/2005 Menometrorrhagia Menopausal flushing Migraine Muscle pain Myalgia and myositis Narcotic drug use Obesity Osteoarthritis (arthritis due to wear and tear of joints) Lumbar, Left foot, Right hip Periodic edema Primary fibromyalgia syndrome Spinal stenosis Spinal stenosis of lumbar region L4-L5; MRI 12/2005 Spinal stenosis of lumbar region without neurogenic claudication Tobacco dependence syndrome Trochanteric bursitis Type 2 diabetes mellitus (HCC) PAST SURGICAL HISTORY Procedure Laterality Date APPENDECTOMY KNEE LEFT OP SURGERY 01/24/2018 KNEE RIGHT OP SURGERY 07/22/2018 LIG/TRNSXJ FLP TUBE ABDL/VAG APPR UNI/BI Dr. Erin Werner PAST SURGICAL HISTORY OF ovarian cyst- right side at age 28 yo TONSILLECTOMY AND ADENOIDECTOMY HX TREAT ECTOPIC Social History Tobacco Use Smoking status: Current Every Day Smoker Packs/day: 0.50 Types: Cigarettes Start date: 03/18/1974 Smokeless tobacco: Never Used Tobacco comment: Not interested in quitting smoking; Amount: 1-9 cigs/day,4 packs per week Vaping Use Vaping Use: Never used Substance Use Topics Alcohol use: No Drug use: Yes Types: Marijuana Comment: medical marijuana,, marijuana, and prescription drugs; Clean for 6 years ALLERGIES Allergen Reactions Aspirin GI Upset Latex Rash Vicodin [Hydrocodon* Hives Patient states she now tolerates hydrocodone 07/2018 Current Outpatient Medications Medication Sig hydroCHLOROthiazide (HYDRODIURIL, ESIDRIX) 25 mg tablet TAKE 1 TABLET BY MOUTH ONCE DAILY naproxen (NAPROSYN) 500 mg tablet Take 1 tablet by mouth twice daily with meals. lidocaine (XYLOCAINE) 5 % ointment APPLY TO THE AFFECTED AREA(S) NEEDED cyclobenzaprine (FLEXERIL) 10 mg tablet TAKE 1/2 (ONE-HALF) OF A TABLET BY MOUTH EVERY 8 HOURS NEEDED FOR MUSCLE SPASMS or FOR PAIN for up to 5 (FIVE) days metFORMIN (GLUCOPHAGE) 500 mg tablet Take 1 tablet by mouth twice daily with meals. amLODIPine (NORVASC) 5 mg tablet Take 1 tablet by mouth once daily. albuterol HFA (PROVENTIL HFA, VENTOLIN HFA) 90 mcg/actuation inhaler Inhale 2 Puffs as instructed every 4 hours as needed. traZODone (DESYREL) 100 mg tablet Take 1 tablet by mouth daily at bedtime. atorvastatin (LIPITOR) 10 mg tablet Take 1 tablet by mouth once daily. BEFORE BEDTIME No current facility-administered medications for this visit. Review of Systems Constitutional: Negative for chills, diaphoresis, fever, malaise/fatigue and weight loss. HENT: Positive for sinus pain. Negative for congestion, ear pain, sore throat and tinnitus. Reports chronic allergies. Eyes: Negative for blurred vision, photophobia and pain. Respiratory: Negative for cough, hemoptysis, sputum production and shortness of breath. Cardiovascular: Negative for chest pain, palpitations, orthopnea and leg swelling. Gastrointestinal: Negative. Negative for abdominal pain, blood in stool, constipation, diarrhea, heartburn, melena, nausea and vomiting. Genitourinary: Negative for dysuria, frequency and urgency. Musculoskeletal: Positive for joint pain and myalgias. Negative for falls and neck pain. Chronic shoulder, knee and foot pain Skin: Negative. Negative for itching. Neurological: Negative. Negative for dizziness, tingling, tremors, sensory change, focal weakness, weakness and headaches. Endo/Heme/Allergies: Positive for environmental allergies. Does not bruise/bleed easily. Reports allergies to cats and has a cat. Psychiatric/Behavioral: Positive for substance abuse. Negative for depression. The patient has insomnia. The patient is not nervous/anxious. Daily marijuana use. Reports using flexeril and edible marijuana Which helps and is effective for sleep BP 122/74 Pulse 101 Temp (Src) 97.6 (Oral) Resp 18 Ht 5' 9 (1.75m) Wt 211 lb 12.8 oz (96.1kg) SpO2 100% BMI 31.26 kg/(m^2). Physical Exam Vitals and nursing note reviewed. Constitutional: General: She is not in acute distress. Appearance: Normal appearance. She is obese. She is not ill-appearing or diaphoretic. HENT: Head: Normocephalic and atraumatic. Right Ear: External ear normal. Left Ear: External ear normal. Nose: Nose normal. Mouth/Throat: Mouth: Mucous membranes are moist. Pharynx: No oropharyngeal exudate. Eyes: General: Lids are normal. No scleral icterus. Right eye: No discharge. Left eye: No discharge. Extraocular Movements: Extraocular movements intact. Conjunctiva/sclera: Conjunctivae normal. Pupils: Pupils are equal, round, and reactive to light. Neck: Vascular: Normal carotid pulses. No carotid bruit. Cardiovascular: Rate and Rhythm: Normal rate and regular rhythm. Pulses: Normal pulses. Carotid pulses are 2+ on the right side and 2+ on the left side. Radial pulses are 2+ on the right side and 2+ on the left side. Dorsalis pedis pulses are 2+ on the right side and 2+ on the left side. Heart sounds: Normal heart sounds, S1 normal and S2 normal. No murmur heard. No friction rub. No gallop. Pulmonary: Effort: Pulmonary effort is normal. No accessory muscle usage or respiratory distress. Breath sounds: Normal breath sounds. No decreased breath sounds, wheezing, rhonchi or rales. Chest: Chest wall: No tenderness. Abdominal: General: Bowel sounds are normal. There is no distension. Palpations: Abdomen is soft. Tenderness: There is no abdominal tenderness. Musculoskeletal: General: No tenderness. Normal range of motion. Cervical back: Normal range of motion and neck supple. Right lower leg: No edema. Left lower leg: No edema. Skin: General: Skin is warm and dry. Coloration: Skin is not pale. Findings: No erythema or rash. Nails: There is no clubbing. Neurological: General: No focal deficit present. Mental Status: She is alert and oriented to person, place, and time. Sensory: Sensation is intact. Motor: Motor function is intact. No abnormal muscle tone. Coordination: Coordination normal. Gait: Gait is intact. Deep Tendon Reflexes: Reflexes are normal and symmetric. Psychiatric: Mood and Affect: Mood and affect normal. Behavior: Behavior normal. Thought Content: Thought content normal. Cognition and Memory: Memory normal. Judgment: Judgment normal. Component Latest Ref Rng & Units 10/20/2019 01/20/2020 06/20/2020 07/20/2020 01/23/2021 Protein, Total 6.3 - 8.0 g/dL 7.2 Albumin 3.9 - 4.9 g/dL 4.2 Calcium 8.5 - 10.2 mg/dL 9.6 Bilirubin, Total 0.2 - 1.3 mg/dL 0.3 Alkaline Phosphatase 34 - 123 U/L 72 AST 13 - 35 U/L 13 ALT 7 - 38 U/L 12 Glucose 74 - 99 mg/dL 137 (H) BUN 7 - 21 mg/dL 19 Creatinine 0.58 - 0.96 mg/dL 0.75 Sodium 136 - 144 mmol/L 138 Potassium 3.7 - 5.1 mmol/L 4.2 Chloride 97 - 105 mmol/L 101 CO2 22 - 30 mmol/L 26 Anion Gap 9 - 18 mmol/L 11 eGFR- >60 eGFR-All Other Races >60 WBC 3.70 - 11.00 k/uL 9.28 RBC 3.90 - 5.20 m/uL 4.83 Hemoglobin 11.5 - 15.5 g/dL 14.6 Hematocrit 36.0 - 46.0 % 44.6 MCV 80.0 - 100.0 fL 92.3 MCH 26.0 - 34.0 pg 30.2 MCHC 30.5 - 36.0 g/dL 32.7 RDW-CV 11.5 - 15.0 % 13.7 Platelet Count 150 - 400 k/uL 281 MPV 9.0 - 12.7 fL 10.6 Cholesterol, Total <200 mg/dL 180 Triglyceride <150 mg/dL 96 HDL Cholesterol >39 mg/dL 59 Non HDL Cholesterol <130 mg/dL 121 Fasting Time hrs 12 VLDL Cholesterol <30 mg/dL 19 TC:HDL Ratio <5.10 3.05 LDL Cholesterol <100 mg/dL 102 (H) LDL:HDL Ratio <2.54 1.73 Creatinine, Ur Random (UCRR) 42.2 - 237.9 mg/dL 115.1 Albumin, Urine Random mg/L <12.0 Albumin/Creat Ratio <30 mg/g <10 Hemoglobin A1C 4.0 - 6.0 % 7.2 (A) 6.7 (A) WSR 0 - 20 mm/hr 19 CRP <0.9 mg/dL 0.9 (H) Hemoglobin A1C (POCT) 4.2 - 5.6 % 6.6 (A) 6.5 ASSESSMENT/PLAN: 1. Type 2 diabetes mellitus without complication, without long-term current use of insulin (HCC) - ICD9: 250.00, ICD10: E11.9 (primary diagnosis) Controlled. 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 - BP goal of <130/80 - LDL goal of <100 - METFORMIN 500 MG TABLET - ALBUMIN/CREAT RATIO RND UR - CBC - COMP METABOLIC PANEL 2. Essential hypertension - ICD9: 401.9, ICD10: I10 - good control - Continue current medication(s) - Encouraged dietary sodium restriction/DASH diet - Recommended regular aerobic exercise. - Recommend home blood pressure monitoring, to bring results in on next visit - Discussed need and benefit for weight loss. - Reviewed risks of HTN and principles of treatment - Goal of BP <130/80 - Recommended no refined sugar, low refined starch, healthy oil intake (olive oil), healthy protein (fish) along the lines of the Mediterranean diet. - AMLODIPINE 5 MG TABLET 3. Bilateral foot pain - ICD9: 729.5, ICD10: M79.671, M79.672 - chronic stable. Continue NSAID and tylenol and lidocaine topical for management - LIDOCAINE 5 % TOPICAL OINTMENT 4. Chronic right shoulder pain - ICD9: 719.41, 338.29, ICD10: M25.511, G89.29 - Chronic, continue management with Dr Parrish - NAPROXEN 500 MG TABLET 5. Insomnia, unspecified type - ICD9: 780.52, ICD10: G47.00 - Chronic controlled. - continue current plan 6. Anxiety and depression - ICD9: 300.00, 311, ICD10: F41.9, F32.A - chronic controlled. - pt is doing well without medication - support provided 7. Tobacco use disorder - ICD9: 305.1, ICD10: F17.200 - Cessation encouraged. - Physiologic and physical aspects of tobacco addiction as well as strategies for quitting were discussed. - Counseling was given focusing on the harmful effects of this addiction especially given the patient's medical condition(s) which will be worsened because of the chemicals in tobacco. - Counseling was given 3-4 minutes. - Recommended to called 1-800-QUIT NOW 8. Need for Tdap vaccination - ICD9: V06.1, ICD10: Z23 - TDAP VACCINE AGE 7+ IM - IMADM PRQ ID SUBQ/IM NJXS 1 VACC - given today in office 9. Need for pneumococcal vaccination - ICD9: V03.82, ICD10: Z23 - PNEUMOCOCCAL IMMUNIZATION PPSV 23 - IMADM PRQ ID SUBQ/IM NJXS 1 VACC - given today in office 10. Screening for thyroid disorder - ICD9: V77.0, ICD10: Z13.29 - TSH BLD 11. Screening for lipid disorders - ICD9: V77.91, ICD10: Z13.220 - LIPID PANEL BASIC 12. Screening for HIV (human immunodeficiency virus) - ICD9: V73.89, ICD10: Z11.4 - HIV 1 2 COMBO(AG/AB),WITH REFLEX TO DIFFERENTIATION All of the above discussed with the patient in detail. Patient is in agreement with the above plan. Yenny Neely APRN.JENNA documented in this encounter [facility] 06-15-2021 Miscellaneous Notes Pharmacy requesting refills as follows: Last Office Visit 06/15/21 nov 07/24/21. Last Refill 12/19/20 metformin has valid script. Pending Prescriptions Disp Refills HYDROCHLOROTHIAZIDE 25 MG TABLET 90 tablet 1 Sig: TAKE 1 TABLET BY MOUTH ONCE DAILY JASMIN: Yes METFORMIN 500 MG TABLET 180 tablet 1 Sig: TAKE 1 TABLET BY MOUTH TWICE DAILY WITH MEALS JASMIN: Yes Please review and advise. Bambi Avilez MA documented in this encounter [facility] 06-15-2021 Instructions Yenny Neely APRN.OTOLARYNGOLOGY SURGEON - 06/15/2021 7:48 AM EDT Shoulder Bursitis Exercises Do these exercises as soon as your healthcare provider says you can. Scapular active range of motion: Stand and shrug your shoulders up and hold for 5 seconds. Then squeeze your shoulder blades back and together and hold 5 seconds. Next, pull your shoulder blades downward as if putting them in your back pocket. Relax. Repeat this sequence 10 times. Wand exercise, flexion: Stand upright and hold a stick in both hands, palms down. Stretch your arms by lifting them over your head, keeping your arms straight. Hold for 5 seconds and return to the starting position. Repeat 10 times. Wand exercise, extension: Stand upright and hold a stick in both hands behind your back. Move the stick away from your back. Hold this position for 5 seconds. Relax and return to the starting position. Repeat 10 times. Wand exercise, external rotation: Lie on your back and hold a stick in both hands, palms up. Your upper arms should be resting on the floor with your elbows at your sides and bent 90 degrees. Use your uninjured arm to push your injured arm out away from your body. Keep the elbow of your injured arm at your side while it is being pushed. Hold the stretch for 5 seconds. Repeat 10 times. Isometric shoulder external rotation: molding sander a doorway with your elbow bent 90 degrees and the back of the wrist on your injured side pressed against the door frame. Try to press your hand outward into the door frame. Hold for 5 seconds. Do 2 sets of 15. Isometric shoulder internal rotation: molding sander a doorway with your elbow bent 90 degrees and the front of the wrist on your injured side pressed against the door frame. Try to press your palm into the door frame. Hold for 5 seconds. Do 2 sets of 15. Resisted shoulder external rotation: Stand sideways next to a door with your injured arm farther from the door. Tie a knot in the end of the tubing and shut the knot in the door at waist level. Hold the other end of the tubing with the hand of your injured arm. Rest the hand of your injured arm across your stomach. Keeping your elbow in at your side, rotate your arm outward and away from your waist. Slowly return your arm to the starting position. Make sure you keep your elbow bent 90 degrees and your forearm parallel to the floor. Repeat 10 times. Build up to 2 sets of 15. Scaption: Stand with your arms at your sides and with your elbows straight. Slowly raise your arms to eye level. As you raise your arms, spread them apart so that they are only slightly in front of your body (at about a 30-degree angle to the front of your body). Point your thumbs toward the ceiling. Hold for 2 seconds and lower your arms slowly. Do 2 sets of 15. Progress to holding a soup can or light weight when you are doing the exercise and increase the weight as the exercise gets easier. Sleeper stretch: Lie on your injured side with your hips and knees flexed and your arm straight out in front of you. Bend the elbow on your injured side to a right angle so that your fingers are pointing toward the ceiling. Then use your other hand to gently push your arm down toward the floor. Keep your shoulder blades lightly squeezed together as you do this exercise. Hold the stretch for 30 seconds. Repeat 3 times. Developed by [email or web address]. Adult Advisor 2013.1 published by [employer]. Last modified: 2013-04-21 Last reviewed: 2011-03-16 This content is reviewed periodically and is subject to change as new health information becomes available. The information is intended to inform and educate and is not a replacement for medical evaluation, advice, diagnosis or treatment by a healthcare professional. References Adult Advisor 2013.1 Index Copyright 2013 [facility] and/or one of its subsidiaries. All rights reserved. Shoulder Tendinitis What is shoulder tendinitis/bursitis? Shoulder bursitis and tendinitis are common causes of shoulder pain and stiffness. They indicate swelling (inflammation) of a particular area within the shoulder joint. The shoulder joint is kept stable by a group of muscles called the rotator cuff as well as the bicipital tendon (the tendon that keeps the upper arm bone within the shoulder socket). When the rotator cuff tendon or the bicipital tendon becomes inflamed and irritated it is called rotator cuff tendinitis or bicipital tendinitis. An area called the subacromial bursa lies in the space between the shoulder tendons. The bursa is what protects these tendons. Subacromial bursitis occurs when the bursa becomes inflamed. Both conditions (shoulder bursitis and tendinitis) can cause pain and stiffness around the shoulder and may exist together. How is this caused? Tendinitis occurs as a result of sports injuries, by repetitive minor impact on the affected area, or from a sudden, more serious injury. For instance, professional baseball players, swimmers, tennis players, and golfers are susceptible to tendinitis in their shoulders, arms, and elbows. Improper technique in any sport is one of the primary causes of overload on tissues including tendons, which can contribute to tendinitis. You don t have to be a bathroom tiling professional to develop this condition, however. People with jobs that require overhead work (such as assembly work or an overhead pressing machine), and heavy lifting are at risk of tendinitis. A direct blow to the shoulder area or falling on an outstretched arm can also cause shoulder tendinitis. How is this treated? Treatment goals include reduction in pain and inflammation, as well as preserving mobility and preventing disability and recurrence. Treatments may include a combination of rest, wrapping, and use of ice packs for recent or severe injuries. Aspirin, naproxen, and ibuprofen are used to reduce swelling. Physical therapy, which includes range of motion exercises, is part of the treatment plan. Surgery is needed if the tendon has been partially or completely torn. Surgery repairs the damage and relieves pressure on the tendons and bursae. When should you seek medical advice? Most cases of tendinitis go away on their own over time. It may take weeks to months to recover, depending on the severity. See your doctor if you experience pain that interferes with your normal day-to-day activities or have soreness that doesn't improve despite self-care measures. Other reasons to see your doctor are if you have recurrence, or if you have a fever and the area affected by tendinitis appears red or inflamed (swollen, warm). These signs and symptoms may indicate that you have an infection. In addition, see your doctor if you have other medical conditions that may increase your risk of an infection, or if you take medications that increase your risk of infection, such as corticosteroids or immunosuppressants. How can tendinitis be prevented? Because most cases of tendinitis are caused by overuse, the best treatment is prevention. It is important to avoid or modify the activities that cause the problem. Underlying conditions such as improper posture or poor technique in sports or work must be corrected. Apply these basic rules when performing activities: Take it slow at first and gradually build up your activity level. Use limited force and limited repetitions. Stop if unusual pain occurs. References: [employer] [place] of Arthritis and Musculoskeletal and Skin Diseases. Shoulder Problems. Questions and Answers about Shoulder Problems Accessed 06/11/2014. [employer]. Disease Center: Tendinitis Accessed 06/11/2014. [employer]. Exercise and Shoulder Pain Accessed 06/11/2014. Copyright 3892-8415 The [facility]. All rights reserved This information is provided by the [facility] and is not intended to replace the medical advice of your doctor or health care provider. Please consult your health care provider for advice about a specific medical condition. For additional health information, please contact the Center for Consumer Health Information at the [facility] or toll-free extension [phone]. If you prefer, you may visit [email or web address] or [email or web address]. This document was last reviewed on: 2014 index#[id number] documented in this encounter [facility] 06-15-2021 History of Present illness Narrative Images from the original note were not included. This note was created using Spark[employer]. Subjective Emilia Flynn is a 61 year old female here today for acute visit for right side neck and shoulder pain. PMH HTN, DM, anxiety and depression, tobacco use. Neck and shoulder pain: she reports this as chronic but worsens at work. 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 States the movements and the face machines she has been doing lately has worsened her pain. States she was placed on this line about a month ago and states and it has worsened since. She did see [facility] IC[facility] MACHINE Aleja on 05/22/21 and was given course of prednisone which helped for 6-7 days then pain started again. She is taking naproxen 500 mg twice daily and tylenol and flexeril at night. Reports shoulder wakes her up at night. States if she sleeps on it wrong it will be tinging. She would like to see orthopedist for possible injection. She would like to see Dr Parrish in [place]. I reviewed her past medical, surgical, social, and family histories today and updated chart. Allergies, chronic medications, and supplements were also reviewed and her list is now up to date. ALLERGIES Allergen Reactions Aspirin GI Upset Latex Rash Vicodin [Hydrocodon* Hives Patient states she now tolerates hydrocodone 07/2018 Current Outpatient Medications Medication Sig Dispense Refill naproxen (NAPROSYN) 500 mg tablet Take 1 tablet by mouth twice daily with meals. 60 tablet 1 lidocaine (XYLOCAINE) 5 % ointment APPLY TO THE AFFECTED AREA(S) NEEDED 120 g 1 cyclobenzaprine (FLEXERIL) 10 mg tablet TAKE 1/2 (ONE-HALF) OF A TABLET BY MOUTH EVERY 8 HOURS NEEDED FOR MUSCLE SPASMS or FOR PAIN for up to 5 (FIVE) days 30 tablet 0 metFORMIN (GLUCOPHAGE) 500 mg tablet Take 1 tablet by mouth twice daily with meals. 180 tablet 1 hydroCHLOROthiazide (HYDRODIURIL, ESIDRIX) 25 mg tablet TAKE 1 TABLET BY MOUTH ONCE DAILY 90 tablet 1 amLODIPine (NORVASC) 5 mg tablet Take 1 tablet by mouth once daily. 90 tablet 1 albuterol HFA (PROVENTIL HFA, VENTOLIN HFA) 90 mcg/actuation inhaler Inhale 2 Puffs as instructed every 4 hours as needed. 18 g 2 traZODone (DESYREL) 100 mg tablet Take 1 tablet by mouth daily at bedtime. (Patient not taking: Reported on 05/22/2021 ) 90 tablet 1 atorvastatin (LIPITOR) 10 mg tablet Take 1 tablet by mouth once daily. BEFORE BEDTIME 90 tablet 1 No current facility-administered medications for this visit. ACTIVE PROBLEM LIST Anxiety and Depression Essential Hypertension Muscle Spasms of Both Lower Extremities Tobacco Use Disorder Type 2 Diabetes Mellitus (Hcc) Depressive Disorder Chronic Pain PAST MEDICAL HISTORY Diagnosis Date Abdominal bloating Abnormal mammography Anxiety Asthma mild intermittent Body mass index 30.0-30.9, adult Breast lump left Chest wall pain Chronic depression Chronic pain Degeneration of cervical intervertebral disc Depressive disorder Dysmenorrhea Edema Essential hypertension h/o suicide attempt FH: cardiovascular disease Fibromyalgia Foot pain [place] (generalized anxiety disorder) GERD (gastroesophageal reflux disease) Heel pain left heel spur, see xray from 01/13/10 Hyperglycemia Hyperlipemia Hypertriglyceridemia IBS (irritable bowel syndrome) Low back pain Lumbar stenosis Lumbar spondylolysis L4-L5; MRI 12/2005 Menometrorrhagia Menopausal flushing Migraine Muscle pain Myalgia and myositis Narcotic drug use Obesity Osteoarthritis (arthritis due to wear and tear of joints) Lumbar, Left foot, Right hip Periodic edema Primary fibromyalgia syndrome Spinal stenosis Spinal stenosis of lumbar region L4-L5; MRI 12/2005 Spinal stenosis of lumbar region without neurogenic claudication Tobacco dependence syndrome Trochanteric bursitis Type 2 diabetes mellitus (HCC) PAST SURGICAL HISTORY Procedure Laterality Date APPENDECTOMY KNEE LEFT OP SURGERY 01/24/2018 KNEE RIGHT OP SURGERY 07/22/2018 LIG/TRNSXJ FLP TUBE ABDL/VAG APPR UNI/BI Dr. Erin Werner PAST SURGICAL HISTORY OF ovarian cyst- right side at age 28 yo TONSILLECTOMY AND ADENOIDECTOMY HX TREAT ECTOPIC Social History Tobacco Use Smoking status: Current Every Day Smoker Packs/day: 0.50 Types: Cigarettes Start date: 03/18/1974 Smokeless tobacco: Never Used Tobacco comment: Not interested in quitting smoking; Amount: 1-9 cigs/day,4 packs per week Vaping Use Vaping Use: Never used Substance Use Topics Alcohol use: No Drug use: Yes Types: Marijuana Comment: medical marijuana,, marijuana, and prescription drugs; Clean for 6 years Family History Problem Relation Age of Onset other (Heart Disease) Father other (Thryoid) Other Maternal Side of Family other (fibromyalgia) Other other (DJD) Sister other (schizophrenic) Sister other (bipolar) Sister other (Other) Other Dtr DM; Paternal side DM Review of Systems Constitutional: Negative for activity change, appetite change, chills, diaphoresis, fatigue, fever and unexpected weight change. Respiratory: Negative for cough, shortness of breath and wheezing. Cardiovascular: Negative for chest pain, palpitations and leg swelling. Musculoskeletal: Positive for arthralgias. See HPI Neurological: Positive for numbness. Occassionally right shoulder/arm Objective 06/15/21 0722 BP: 128/76 BP Site: Right Arm BP Position: Sitting BP Cuff Size: Large Adult Pulse: 82 Resp: 18 Temp: 36.8 C (98.3 F) TempSrc: Oral SpO2: 98% Weight: 95.8 kg (211 lb 3.2 oz) Height: 175.3 cm (5' 9 ) Physical Exam Vitals and nursing note reviewed. Constitutional: Appearance: Normal appearance. Cardiovascular: Rate and Rhythm: Normal rate and regular rhythm. Pulses: Normal pulses. Radial pulses are 2+ on the right side and 2+ on the left side. Heart sounds: Normal heart sounds. Pulmonary: Effort: Pulmonary effort is normal. Breath sounds: Normal breath sounds. Musculoskeletal: Right shoulder: Tenderness and bony tenderness present. No swelling or deformity. Decreased range of motion. Normal strength. Left shoulder: Decreased range of motion. Arms: Right lower leg: No edema. Left lower leg: No edema. Skin: General: Skin is warm and dry. Neurological: Mental Status: She is alert and oriented to person, place, and time. Psychiatric: Mood and Affect: Mood normal. Behavior: Behavior normal. Thought Content: Thought content normal. Judgment: Judgment normal. ASSESSMENT/PLAN: 1. Chronic right shoulder pain - ICD9: 719.41, 338.29, ICD10: M25.511, G89.29 - Acute on chronic, probable tendonitis. - continue naproxen 500 mg twice daily and muscle relaxer as needed - referral to ortho for evaluation and management - see handout for exercises - CONSULT TO ORTHOPAEDICS Yenny Neely APRN.CNP documented in this encounter [facility] documented as of this encounter (statuses as of 01/30/2023) [facility]10-29-2018 History of Past illness Narrative* Problem Noted Date Diagnosed Date Resolved Date Tobacco use disorder 01/13/2018 023 Post-menopausal bleeding 12/28/2011 documented as of this encounter (statuses as of 02/22/2023) [facility]10-29-2018 History of Past illness Narrative* Problem Noted Date Diagnosed Date Resolved Date Tobacco use disorder 01/13/2018 023 Post-menopausal bleeding 12/28/2011 documented as of this encounter (statuses as of 03/06/2023) [facility]2012 History of Past illness Narrative* Problem Noted Date Resolved Date Post-menopausal bleeding 12/28/2011 018 documented as of this encounter (statuses as of 06/15/2021) [facility] History of Past illness Narrative* Problem Noted Date Resolved Date Post-menopausal bleeding 12/28/2011 018 documented as of this encounter (statuses as of 06/15/2021) [facility] History of Past illness Narrative* Problem Noted Date Resolved Date Post-menopausal bleeding 12/28/2011 018 documented as of this encounter (statuses as of 07/17/2021) [facility] History of Past illness Narrative* Problem Noted Date Resolved Date Post-menopausal bleeding 12/28/2011 018 documented as of this encounter (statuses as of 07/17/2021) [facility] History of Past illness Narrative* Problem Noted Date Resolved Date Post-menopausal bleeding 12/28/2011 018 documented as of this encounter (statuses as of 07/19/2021) [facility] History of Past illness Narrative* Problem Noted Date Resolved Date Post-menopausal bleeding 12/28/2011 018 documented as of this encounter (statuses as of 07/20/2021) [facility] History of Past illness Narrative* Problem Noted Date Resolved Date Post-menopausal bleeding 12/28/2011 018 documented as of this encounter (statuses as of 08/08/2021) [facility] History of Past illness Narrative* Problem Noted Date Resolved Date Post-menopausal bleeding 12/28/2011 018 documented as of this encounter (statuses as of 09/15/2021) [facility] History of Past illness Narrative* Problem Noted Date Resolved Date Post-menopausal bleeding 12/28/2011 018 documented as of this encounter (statuses as of 10/16/2021) [facility] History of Past illness Narrative* Problem Noted Date Resolved Date Post-menopausal bleeding 12/28/2011 018 documented as of this encounter (statuses as of 10/19/2021) [facility] History of Past illness Narrative* Problem Noted Date Resolved Date Post-menopausal bleeding 12/28/2011 018 documented as of this encounter (statuses as of 11/15/2021) [facility] History of Past illness Narrative* Problem Noted Date Resolved Date Post-menopausal bleeding 12/28/2011 018 documented as of this encounter (statuses as of 11/15/2021) [facility] History of Past illness Narrative* Problem Noted Date Resolved Date Post-menopausal bleeding 12/28/2011 018 documented as of this encounter (statuses as of 12/15/2021) [facility] History of Past illness Narrative* Problem Noted Date Resolved Date Post-menopausal bleeding 12/28/2011 018 documented as of this encounter (statuses as of 01/22/2022) [facility] History of Past illness Narrative* Problem Noted Date Resolved Date Post-menopausal bleeding 12/28/2011 018 documented as of this encounter (statuses as of 01/24/2022) [facility] History of Past illness Narrative* Problem Noted Date Resolved Date Post-menopausal bleeding 12/28/2011 018 documented as of this encounter (statuses as of 01/26/2022) [facility] History of Past illness Narrative* Problem Noted Date Resolved Date Post-menopausal bleeding 12/28/2011 018 documented as of this encounter (statuses as of 02/07/2022) [facility] History of Past illness Narrative* Problem Noted Date Resolved Date Post-menopausal bleeding 12/28/2011 018 documented as of this encounter (statuses as of 02/12/2022) [facility] History of Past illness Narrative* Problem Noted Date Resolved Date Post-menopausal bleeding 12/28/2011 018 documented as of this encounter (statuses as of 02/19/2022) [facility] History of Past illness Narrative* Problem Noted Date Resolved Date Post-menopausal bleeding 12/28/2011 018 documented as of this encounter (statuses as of 02/20/2022) [facility] History of Past illness Narrative* Problem Noted Date Resolved Date Post-menopausal bleeding 12/28/2011 018 documented as of this encounter (statuses as of 02/21/2022) [facility] History of Past illness Narrative* Problem Noted Date Resolved Date Post-menopausal bleeding 12/28/2011 018 documented as of this encounter (statuses as of 02/21/2022) [facility] History of Past illness Narrative* Problem Noted Date Resolved Date Post-menopausal bleeding 12/28/2011 018 documented as of this encounter (statuses as of 02/21/2022) [facility] History of Past illness Narrative* Problem Noted Date Resolved Date Post-menopausal bleeding 12/28/2011 018 documented as of this encounter (statuses as of 02/23/2022) [facility] History of Past illness Narrative* Problem Noted Date Resolved Date Post-menopausal bleeding 12/28/2011 018 documented as of this encounter (statuses as of 02/27/2022) [facility] History of Past illness Narrative* Problem Noted Date Resolved Date Post-menopausal bleeding 12/28/2011 018 documented as of this encounter (statuses as of 03/21/2022) [facility] History of Past illness Narrative* Problem Noted Date Resolved Date Post-menopausal bleeding 12/28/2011 018 documented as of this encounter (statuses as of 03/21/2022) [facility] History of Past illness Narrative* Problem Noted Date Resolved Date Post-menopausal bleeding 12/28/2011 018 documented as of this encounter (statuses as of 03/29/2022) [facility] History of Past illness Narrative* Problem Noted Date Resolved Date Post-menopausal bleeding 12/28/2011 018 documented as of this encounter (statuses as of 04/10/2022) [facility] History of Past illness Narrative* Problem Noted Date Resolved Date Post-menopausal bleeding 12/28/2011 018 documented as of this encounter (statuses as of 04/16/2022) [facility] History of Past illness Narrative* Problem Noted Date Resolved Date Post-menopausal bleeding 12/28/2011 018 documented as of this encounter (statuses as of 04/17/2022) [facility] History of Past illness Narrative* Problem Noted Date Resolved Date Post-menopausal bleeding 12/28/2011 018 documented as of this encounter (statuses as of 04/19/2022) [facility] History of Past illness Narrative* Problem Noted Date Resolved Date Post-menopausal bleeding 12/28/2011 018 documented as of this encounter (statuses as of 05/31/2022) [facility] History of Past illness Narrative* Problem Noted Date Resolved Date Post-menopausal bleeding 12/28/2011 018 documented as of this encounter (statuses as of 06/03/2022) [facility] History of Past illness Narrative* Problem Noted Date Resolved Date Post-menopausal bleeding 12/28/2011 018 documented as of this encounter (statuses as of 06/12/2022) [facility] History of Past illness Narrative* Problem Noted Date Resolved Date Post-menopausal bleeding 12/28/2011 018 documented as of this encounter (statuses as of 06/21/2022) [facility] History of Past illness Narrative* Problem Noted Date Resolved Date Post-menopausal bleeding 12/28/2011 018 documented as of this encounter (statuses as of 06/28/2022) [address]12-2012 History of Past illness Narrative* Problem Noted Date Resolved Date Post-menopausal bleeding 12/28/2011 018 documented as of this encounter (statuses as of 06/28/2022) [facility] History of Past illness Narrative* Problem Noted Date Resolved Date Post-menopausal bleeding 12/28/2011 018 documented as of this encounter (statuses as of 07/02/2022) [facility] History of Past illness Narrative* Problem Noted Date Resolved Date Post-menopausal bleeding 12/28/2011 018 documented as of this encounter (statuses as of 07/23/2022) [facility] History of Past illness Narrative* Problem Noted Date Resolved Date Post-menopausal bleeding 12/28/2011 018 documented as of this encounter (statuses as of 07/25/2022) [facility] History of Past illness Narrative* Problem Noted Date Diagnosed Date Resolved Date Post-menopausal bleeding 12/28/2011 documented as of this encounter (statuses as of 01/03/2023) [address]12-2012 History of Past illness Narrative* Problem Noted Date Diagnosed Date Resolved Date Post-menopausal bleeding 12/28/2011 documented as of this encounter (statuses as of 01/09/2023) [facility] Diagnosis Chronic right shoulder pain- Primary Pain in joint, shoulder region [facility] Diagnosis Essential hypertension Unspecified essential hypertension Type 2 diabetes mellitus without complication, without long-term current use of insulin ([facility]) [facility] Diagnosis Type 2 diabetes mellitus without complication, without long-term current use of insulin (HCC)- Primary Essential hypertension Unspecified essential hypertension Bilateral foot pain Pain in limb Chronic right shoulder pain Pain in joint, shoulder region Insomnia, unspecified type Anxiety and depression Dysthymic disorder Tobacco use disorder Need for Tdap vaccination Need for prophylactic vaccination with combined [id number] (DTP) vaccine Need for pneumococcal vaccination Need for prophylactic vaccination against streptococcus pneumoniae (pneumococcus) Screening for thyroid disorder Screening for lipid disorders Screening for HIV (human immunodeficiency virus) Special screening examination for other specified viral diseases [facility] Other [facility] Diagnosis Chronic right shoulder pain- Primary Pain in joint, shoulder region Other chronic pain Muscle spasms of both lower extremities [facility] Diagnosis Chronic right shoulder pain Pain in joint, shoulder region [facility] Diagnosis Other chronic pain [facility]* Diagnosis Tobacco use disorder SOB (shortness of breath) Shortness of breath [facility]* Diagnosis Chronic right shoulder pain Pain in joint, shoulder region [facility] Diagnosis Essential hypertension Unspecified essential hypertension Type 2 diabetes mellitus without complication, without long-term current use of insulin (HCC) Bilateral foot pain Pain in limb [facility]* Diagnosis Type 2 diabetes mellitus without complication, without long-term current use of insulin (HCC)- Primary Essential hypertension Unspecified essential hypertension Anxiety and depression Dysthymic disorder Tobacco use disorder Encounter for screening mammogram for malignant neoplasm of breast Other screening mammogram Colon cancer screening Special screening for malignant neoplasms, colon [facility] Diagnosis Unintentional weight loss of more than 10 pounds in 90 days- Primary Tobacco use current Persistent cough for 3 weeks or longer Wheezing Encounter for screening for lung cancer [facility]* Diagnosis Encounter for screening for lung cancer- Primary [facility]* Diagnosis Wheezing- Primary [facility]* Diagnosis Compression fracture of T6 vertebra, sequela [facility]* Diagnosis Compression fracture of T6 vertebra, sequela- Primary Post-menopausal Asymptomatic postmenopausal status (age-related) (natural) [facility] Diagnosis Midline thoracic back pain, unspecified chronicity- Primary Compression fracture of T6 vertebra, initial encounter ([facility]) [facility] Diagnosis Compression fracture of T6 vertebra, sequela Post-menopausal Asymptomatic postmenopausal status (age-related) (natural) [facility] Diagnosis Osteopenia, unspecified location- Primary [facility] Diagnosis Other chronic pain [facility] Diagnosis Localized swelling, mass and lump, neck- Primary Swelling, mass, or lump in head and neck Cat allergies Allergic rhinitis due to other allergen [facility] Diagnosis Other chronic pain- Primary [facility] Diagnosis Tobacco use disorder SOB (shortness of breath) Shortness of breath [facility] Diagnosis Tobacco use current- Primary Encounter for screening for lung cancer [facility] Diagnosis Pre-operative general physical examination- Primary Other specified pre-operative examination Chronic pain of right knee Type 2 diabetes mellitus without complication, without long-term current use of insulin (HCC) Essential hypertension Unspecified essential hypertension Anxiety Anxiety state, unspecified [facility] Diagnosis Right foot pain- Primary Pain in limb [facility] Diagnosis Right foot pain Pain in limb [facility] Diagnosis Closed nondisplaced fracture of fourth metatarsal bone of right foot, initial encounter- Primary [facility]* Diagnosis Type 2 diabetes mellitus without complication, without long-term current use of insulin (HCC)- Primary Essential hypertension Unspecified essential hypertension Anxiety and depression Dysthymic disorder Other chronic pain Screening for lipid disorders Colon cancer screening Special screening for malignant neoplasms, colon [facility] Diagnosis Encounter for screening mammogram for malignant neoplasm of breast- Primary Other screening mammogram [facility] Diagnosis Anxiety Anxiety state, unspecified [facility] Diagnosis Type 2 diabetes mellitus without complication, without long-term current use of insulin (HCC)- Primary Essential hypertension Unspecified essential hypertension Anxiety and depression Dysthymic disorder Screening for lipid disorders Acute cough [facility] Tobacco use current Encounter for screening for lung cancer [facility] NarrativeMsArtur Flynn is here for her right shoulder. She states she had pain in the shoulder for many years. She had a softball injury when she was younger and can no longer throw a ball. She has worked multiple jobs and states the repetitive overhead use of the arm causes significant discomfort. She takes medication and has tried exercises in the past. She is here today as a new patient.-[facility] (narrative)* Diagnostic Procedure Only (Routine) - Pending Review Specialty Diagnoses / Procedures Referred By Low lim Referred To Contact [facility] Diagnoses Encounter for screening mammogram for malignant neoplasm of breast Procedures YISEL SCREENING SCREENING MAMMOGRAPHY BI 2-VIEW BREAST INC [facility] Yenny Neely APRN.OTOLARYNGOLOGY SURGEON [address] [place] [id number] [facility] [address] [place] [address] Referral ID Status Reason Start Date Expiration Date Visits Requested Visits Authorized [id number] Pending Review Auto-Generat ed Referral 01/22/2022 02/21/2023 1 1 [facility] for referral (narrative)* Outpatient Procedure (Routine) - Authorized Specialty Diagnoses / Procedures Referred By Low lim Referred To Contact [facility] Diagnoses Wheezing Procedures SPIROMETRY - BASELINE AND POST DILATOR BRNCDILAT RSPSE SPMTRY PRE&POST-BRNCDILAT ADMN Francisco Montes APRN.OTOLARYNGOLOGY SURGEON [address] [place] [address] Respiratory [place] [address] [place] [address] Referral ID Status Reason Start Date Expiration Date Visits Requested Visits Authorized [id number] Authorized Auto-Generat ed Referral 03/09/2023 1 1 * MRI/CT (Routine) - Authorized Specialty Diagnoses / Procedures Referred By Contac t Referred To Contact CT IMAGING Diagnoses Unintentional weight loss of more than 10 pounds in 90 days Persistent cough for 3 weeks or longer Procedures [address] CHEST WO IVCON DIAGNOSTIC COMPUTED TOMOGRAPHY THORAX W/O Francisco Coburn APRN.OTOLARYNGOLOGY SURGEON [address] [place] [address] Ct Imaging Referral ID Status Reason Start Date Expiration Date Visits Requested Visits Authorized [id number] Authorized Auto-Generat ed Referral 03/17/2022 1 1 [facility] for referral (narrative)* Diagnostic Procedure Only (Routine) - Closed Specialty Diagnoses / Procedures Referred By Contac t Referred To Contact XR IMAGING Diagnoses Compression fracture of T6 vertebra, sequela Procedures XR THORACIC GENERAL 3V AP/LAT/SWIMMERS RADEX SPINE THORACIC 3 VIEWS Yenny Neely NETWORK RELATIONS CONSULTANT.OTOLARYNGOLOGY SURGEON [address] [place] [address] Xr Imaging Referral ID Status Reason Start Date Expiration Date V isits Requested Visits Authorized [id number] Closed Auto-Generate d Referral 02/20/2022 03/22/2023 1 1 [facility] for referral (narrative)* Diagnostic Procedure Only (Routine) - Closed Specialty Diagnoses / Procedures Referred By Contac t Referred To Contact XR IMAGING Diagnoses Compression fracture of T6 vertebra, sequela Procedures XR THORACIC GENERAL 3V AP/LAT/SWIMMERS RADEX SPINE THORACIC 3 VIEWS Yenny Neely APRN.OTOLARYNGOLOGY SURGEON [address] [place] [address] Xr Imaging Referral ID Status Reason Start Date Expiration Date V isits Requested Visits Authorized [id number] Closed Auto-Generate d Referral 02/20/2022 03/22/2023 1 1 [facility] for referral (narrative)* Diagnostic Procedure Only (Routine) - Closed Specialty Diagnoses / Procedures Referred By Contac t Referred To Contact XR IMAGING Diagnoses Right foot pain Procedures XR FOOT GENERAL 3V AP/LAT/OBL RIGHT RADEX FOOT COMPLETE MINIMUM 3 VIEWS Yenny Neely APRN.OTOLARYNGOLOGY SURGEON [address] [place] [address] Xr Imaging Referral ID Status Reason Start Date Expiration Date V isits Requested Visits Authorized [id number] Closed Auto-Generate d Referral 06/27/2022 07/27/2023 1 1 [facility] for referral (narrative)* Diagnostic Procedure Only (Routine) - Closed Specialty Diagnoses / Procedures Referred By Contac t Referred To Contact XR IMAGING Diagnoses Right foot pain Procedures XR FOOT GENERAL 3V AP/LAT/OBL RIGHT RADEX FOOT COMPLETE MINIMUM 3 VIEWS Yenny Neely NETWORK RELATIONS CONSULTANT.OTOLARYNGOLOGY SURGEON [address] [place] [address] Xr Imaging Referral ID Status Reason Start Date Expiration Date V isits Requested Visits Authorized [id number] Closed Auto-Generate d Referral 06/27/2022 07/27/2023 1 1 [facility] for referral (narrative)* Diagnostic Procedure Only (Routine) - Pending Review Specialty Diagnoses / Procedures Referred By Contac t Referred To Contact BR [facility] Diagnoses Encounter for screening mammogram for malignant neoplasm of breast Procedures YISEL SCREENING SCREENING MAMMOGRAPHY BI 2-VIEW BREAST INC CAD Meredith Masterson, NETWORK RELATIONS CONSULTANT.OTOLARYNGOLOGY SURGEON [address] [place] [address] [facility] [address] [place] [address] Referral ID Status Reason Start Date Expiration Date Visits Requested Visits Authorized [id number] Pending Review Auto-Generat ed Referral 02/02/2024 1 1 [facility] for visit Narrative* Diagnostic Procedure Only (Routine) - Closed Specialty Diagnoses / Procedures Referred By Contac t Referred To Contact XR IMAGING Diagnoses Compression fracture of T6 vertebra, sequela Procedures XR THORACIC GENERAL 3V AP/LAT/SWIMMERS RADEX SPINE THORACIC 3 VIEWS Yenny Neely APRN.OTOLARYNGOLOGY SURGEON [address] [place] [address] Xr Imaging Referral ID Status Reason Start Date Expiration Date V isits Requested Visits Authorized [id number] Closed Auto-Generate d Referral 02/20/2022 03/22/2023 1 1 [facility] for visit Narrative* Diagnostic Procedure Only (Routine) - Closed Specialty Diagnoses / Procedures Referred By Contac t Referred To Contact XR IMAGING Diagnoses Right foot pain Procedures XR FOOT GENERAL 3V AP/LAT/OBL RIGHT RADEX FOOT COMPLETE MINIMUM 3 VIEWS Yenny Neely, NETWORK RELATIONS CONSULTANT.OTOLARYNGOLOGY SURGEON [address] [place] [address] Xr Imaging Referral ID Status Reason Start Date Expiration Date V isits Requested Visits Authorized [id number] Closed Auto-Generate d Referral 06/27/2022 07/27/2023 1 1 [facility] Summary Purpose Family History No Family History Records FoundNo Family History Records FoundNo Family History Records FoundNo Family History Records FoundNo Family History Records FoundNo Family History Records Found Advance Directives No Advanced Directives Records FoundDocuments on File Type Date Recorded Patient Ug Designer Expl anation Advance Directive(s) 03/04/2020 11:09 AM Advance Directive(s) 07/22/2018 1:02 PM Advance Directive(s) 07/10/2018 11:16 AM Advance Directive(s) 01/23/2018 1:23 PM Advance Directive(s) 01/28/2017 4:32 PM Documents on File Type Date Recorded Patient Ug Designer Expl anation Advance Directive(s) 03/04/2020 11:09 AM Advance Directive(s) 07/22/2018 1:02 PM Advance Directive(s) 07/10/2018 11:16 AM Advance Directive(s) 01/23/2018 1:23 PM Advance Directive(s) 01/28/2017 4:32 PM Procedure Findings Note HNO ID: [id number] Author: Chino Kovacs Service: Orthopaedic Surgery Author Type: Physician Type: Brief Op Note Filed: 01/23/2018 8:26 AM Note Text: BRIEF OPERATIVE / PROCEDURE NOTE LOG ID: [id number] Surgery/Procedure Date: 01/23/2018 Incision/Procedure Start Time: 7:59 AM Incision Close/Procedure End Time: 8:21 AM Surgeon(s)/Proceduralist(s) and Ethanol Operations Manager(s): Surgeon(s) and Role: * Kevin Kovacs - Primary Procedure(s): Right knee partial medial and lateral menisectomy Anesthesia: General Findings: Right knee medial and lateral meniscus tears Estimated Blood Loss: 0 ml Specimens: None Complications: None Pre-Op/Pre-Procedure Diagnosis: Right knee medial and lateral meniscus tears Post-Op/Post-Procedure Diagnosis: same SIGNATURE: Kevin Kovacs MD PATIENT NAME: Emilia Guzman Enrique Flynn DATE: January 23, 2018 TIME: 8:24 AM PAGER/CONTACT #: Note HNO ID: [id number] Author: Chino Kovacs Service: Orthopaedic Surgery Author Type: Physician Type: Brief Op Note Filed: 07/22/2018 2:29 PM Note Text: BRIEF OPERATIVE / PROCEDURE NOTE LOG ID: [id number] Surgery/Procedure Date: 07/22/2018 Incision/Procedure Start Time: 1:48 PM Incision Close/Procedure End Time: 2:17 PM Surgeon(s)/Proceduralist(s) and Ethanol Operations Manager(s): Surgeon(s) and Role: * Kevin Kovacs - Primary Procedure(s): Right knee arthroscopy,partial medial and lateral menisectomies Anesthesia: Monitored Anesthesia Care Findings: Medial and lateral meniscus tears right knee Estimated Blood Loss: 0 ml Specimens: None Complications: None Pre-Op/Pre-Procedure Diagnosis: Right knee medial and lateral meniscus tears Post-Op/Post-Procedure Diagnosis: same SIGNATURE: Kevin Kovacs MD PATIENT NAME: Emilia Solomonyudelka DATE: July 22, 2018 TIME: 2:27 PM PAGER/CONTACT #: Reason for Referral Specialty Diagnoses / Procedures Referred By Contac t Referred To Contact Orthopedics Diagnoses Chronic right shoulder pain Procedures CONSULT TO ORTHOPAEDICS OFFICE/OUTPATIENT [facility] 60-74 MINUTES Yenny Neely, NETWORK RELATIONS CONSULTANT.OTOLARYNGOLOGY SURGEON [address] [place] [address] Referral ID Status Reason Start Date Expiration Date Visits Requested Visits Authorized [id number] Pending Review PCP Requested Referral 06/15/2021 06/15/2022 1 1 Specialty Diagnoses / Procedures Referred By Contac t Referred To Contact Ophthalmology Diagnoses Type 2 diabetes mellitus without complication, without long-term current use of insulin (HCC) Procedures CONSULT TO OPHTHALMOLOGY OFFICE/OUTPATIENT [facility] 60-74 MINUTES Yenny Neely, NETWORK RELATIONS CONSULTANT.OTOLARYNGOLOGY SURGEON [address] [place] [address] Referral ID Status Reason Start Date Expiration Date Visits Requested Visits Authorized [id number] Pending Review PCP Requested Referral 07/17/2021 07/17/2022 1 1 Specialty Diagnoses / Procedures Referred By Contac t Referred To Contact Diagnoses Tobacco use disorder SOB (shortness of breath) Yenny Neely, NETWORK RELATIONS CONSULTANT.OTOLARYNGOLOGY SURGEON [address] [place] [address] Referral ID Status Reason Start Date Expiration Date V isits Requested Visits Authorized [id number] Pending Review 1 1 Specialty Diagnoses / Procedures Referred By Contac t Referred To Contact Diagnoses Compression fracture of T6 vertebra, initial encounter (HCC) Procedures CONSULT TO ORTHOPAEDIC SURGERY OFFICE/OUTPATIENT [facility] 60-74 MINUTES Meredith Masterson, NETWORK RELATIONS CONSULTANT.OTOLARYNGOLOGY SURGEON [address] [place] [address] Prosper Umanzor Jr., DO [address] [place] [id number] Referral ID Status Reason Start Date Expiration Date Visits Requested Visits Authorized [id number] Authorized PCP Requested Referral 02/23/2022 02/23/2023 1 1 Specialty Diagnoses / Procedures Referred By Contac t Referred To Contact General Surgery / [facility] Department Diagnoses Localized swelling, mass and lump, neck Procedures CONSULT TO GENERAL SURGERY OFFICE/OUTPATIENT [facility] 60-74 MINUTES Yenny Neely, NETWORK RELATIONS CONSULTANT.OTOLARYNGOLOGY SURGEON [address] [place] [address] Lise Robles MD [address] [place] [address] Referral ID Status Reason Start Date Expiration Date Visits Requested Visits Authorized [id number] Pending Review PCP Requested Referral 04/17/2022 04/17/2023 1 1 Specialty Diagnoses / Procedures Referred By Contac t Referred To Contact [facility] Diagnoses Other chronic pain Procedures CONSULT TO PHYSICAL THERAPY PHYSICAL THERAPY EVALUATION HIGH COMPLEX 45 MINS Yenny Neely, NETWORK RELATIONS CONSULTANT.OTOLARYNGOLOGY SURGEON [address] [place] [address] [facility] [address] [place] [address] Referral ID Status Reason Start Date Expiration Date Visits Requested Visits Authorized [id number] Pending Review Auto-Generat ed Referral 04/19/2022 04/19/2023 1 1 Referral ID Status Reason Start Date Expiration Date Visits Re quested Visits Authorized [id number] Closed 1 1 Specialty Diagnoses / Procedures Referred By Contac t Referred To Contact CT IMAGING Diagnoses Tobacco use current Encounter for screening for lung cancer Procedures CT LUNG SCREEN WO IVCON COMPUTED TOMOGRAPHY THORAX LW DOSE LNG CA SCR Toya- Francisco Montes, NETWORK RELATIONS CONSULTANT.OTOLARYNGOLOGY SURGEON [address] [place] [address] Ct Imaging Referral ID Status Reason Start Date Expiration Date Visits Requested Visits Authorized [id number] Authorized Auto-Generat ed Referral 02/19/2023 07/12/2023 1 1 Specialty Diagnoses / Procedures Referred By Contac t Referred To Contact Podiatry Diagnoses Closed nondisplaced fracture of fourth metatarsal bone of right foot, initial encounter Procedures CONSULT TO PODIATRY Yenny Neely, NETWORK RELATIONS CONSULTANT.OTOLARYNGOLOGY SURGEON [address] [place] [address] [address] [place] [id number] Referral ID Status Reason Start Date Expiration Date Visits Requested Visits Authorized [id number] Ref Not Required PCP Requested Referral 07/01/2022 09/29/2022 3 3 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 * 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 Additional Source Comments INFORMATION SOURCE (unrecogn ized section and content) DATE CREATED AUTHOR AUTHOR'S ORGANIZ ATION 03/05/2020 [facility] DATE CREATED AUTHOR AUTHOR'S ORGANIZ ATION 07/16/2021 [facility] DATE CREATED AUTHOR AUTHOR'S ORGANIZ ATION 07/19/2021 [employer] DATE CREATED AUTHOR AUTHOR'S ORGANIZ ATION 03/06/2023 [facility] DATE CREATED AUTHOR AUTHOR'S ORGANIZ ATION 03/27/2023 [facility] Source Comments (unrecognize d section and content) In the event this informatio n is protected by the Federal Confidentiality of Alcohol and Drug Abuse Patient Records regulations: The Federal rules restrict any use of the information to criminally investigate or prosecute any alcohol or drug abuse patient.[facility] InstituteIn the event this information is protected by the Federal Confidentiality of Alcohol and Drug Abuse Patient Records regulations: The Federal rules restrict any use of the information to criminally investigate or prosecute any alcohol or drug abuse patient.[facility] InstituteIn the event this information is protected by the Federal Confidentiality of Alcohol and Drug Abuse Patient Records regulations: The Federal rules restrict any use of the information to criminally investigate or prosecute any alcohol or drug abuse patient.[facility] InstituteIn the event this information is protected by the Federal Confidentiality of Alcohol and Drug Abuse Patient Records regulations: The Federal rules restrict any use of the information to criminally investigate or prosecute any alcohol or drug abuse patient.[facility] InstituteIn the event this information is protected by the Federal Confidentiality of Alcohol and Drug Abuse Patient Records regulations: The Federal rules restrict any use of the information to criminally investigate or prosecute any alcohol or drug abuse patient.[facility] InstituteIn the event this information is protected by the Federal Confidentiality of Alcohol and Drug Abuse Patient Records regulations: The Federal rules restrict any use of the information to criminally investigate or prosecute any alcohol or drug abuse patient.[facility] InstituteIn the event this information is protected by the Federal Confidentiality of Alcohol and Drug Abuse Patient Records regulations: The Federal rules restrict any use of the information to criminally investigate or prosecute any alcohol or drug abuse patient.[facility] InstituteIn the event this information is protected by the Federal Confidentiality of Alcohol and Drug Abuse Patient Records regulations: The Federal rules restrict any use of the information to criminally investigate or prosecute any alcohol or drug abuse patient.[facility] InstituteIn the event this information is protected by the Federal Confidentiality of Alcohol and Drug Abuse Patient Records regulations: The Federal rules restrict any use of the information to criminally investigate or prosecute any alcohol or drug abuse patient.[facility] InstituteIn the event this information is protected by the Federal Confidentiality of Alcohol and Drug Abuse Patient Records regulations: The Federal rules restrict any use of the information to criminally investigate or prosecute any alcohol or drug abuse patient.[facility] InstituteIn the event this information is protected by the Federal Confidentiality of Alcohol and Drug Abuse Patient Records regulations: The Federal rules restrict any use of the information to criminally investigate or prosecute any alcohol or drug abuse patient.[facility] InstituteIn the event this information is protected by the Federal Confidentiality of Alcohol and Drug Abuse Patient Records regulations: The Federal rules restrict any use of the information to criminally investigate or prosecute any alcohol or drug abuse patient.[facility] InstituteIn the event this information is protected by the Federal Confidentiality of Alcohol and Drug Abuse Patient Records regulations: The Federal rules restrict any use of the information to criminally investigate or prosecute any alcohol or drug abuse patient.[facility] InstituteIn the event this information is protected by the Federal Confidentiality of Alcohol and Drug Abuse Patient Records regulations: The Federal rules restrict any use of the information to criminally investigate or prosecute any alcohol or drug abuse patient.[facility] InstituteIn the event this information is protected by the Federal Confidentiality of Alcohol and Drug Abuse Patient Records regulations: The Federal rules restrict any use of the information to criminally investigate or prosecute any alcohol or drug abuse patient.[facility] InstituteIn the event this information is protected by the Federal Confidentiality of Alcohol and Drug Abuse Patient Records regulations: The Federal rules restrict any use of the information to criminally investigate or prosecute any alcohol or drug abuse patient.[facility] InstituteIn the event this information is protected by the Federal Confidentiality of Alcohol and Drug Abuse Patient Records regulations: The Federal rules restrict any use of the information to criminally investigate or prosecute any alcohol or drug abuse patient.[facility] InstituteIn the event this information is protected by the Federal Confidentiality of Alcohol and Drug Abuse Patient Records regulations: The Federal rules restrict any use of the information to criminally investigate or prosecute any alcohol or drug abuse patient.[facility] InstituteIn the event this information is protected by the Federal Confidentiality of Alcohol and Drug Abuse Patient Records regulations: The Federal rules restrict any use of the information to criminally investigate or prosecute any alcohol or drug abuse patient.[facility] InstituteIn the event this information is protected by the Federal Confidentiality of Alcohol and Drug Abuse Patient Records regulations: The Federal rules restrict any use of the information to criminally investigate or prosecute any alcohol or drug abuse patient.[facility] InstituteIn the event this information is protected by the Federal Confidentiality of Alcohol and Drug Abuse Patient Records regulations: The Federal rules restrict any use of the information to criminally investigate or prosecute any alcohol or drug abuse patient.[facility] InstituteIn the event this information is protected by the Federal Confidentiality of Alcohol and Drug Abuse Patient Records regulations: The Federal rules restrict any use of the information to criminally investigate or prosecute any alcohol or drug abuse patient.[facility] InstituteIn the event this information is protected by the Federal Confidentiality of Alcohol and Drug Abuse Patient Records regulations: The Federal rules restrict any use of the information to criminally investigate or prosecute any alcohol or drug abuse patient.[facility] InstituteIn the event this information is protected by the Federal Confidentiality of Alcohol and Drug Abuse Patient Records regulations: The Federal rules restrict any use of the information to criminally investigate or prosecute any alcohol or drug abuse patient.[facility] InstituteIn the event this information is protected by the Federal Confidentiality of Alcohol and Drug Abuse Patient Records regulations: The Federal rules restrict any use of the information to criminally investigate or prosecute any alcohol or drug abuse patient.[facility] InstituteIn the event this information is protected by the Federal Confidentiality of Alcohol and Drug Abuse Patient Records regulations: The Federal rules restrict any use of the information to criminally investigate or prosecute any alcohol or drug abuse patient.[facility] InstituteIn the event this information is protected by the Federal Confidentiality of Alcohol and Drug Abuse Patient Records regulations: The Federal rules restrict any use of the information to criminally investigate or prosecute any alcohol or drug abuse patient.[facility] InstituteIn the event this information is protected by the Federal Confidentiality of Alcohol and Drug Abuse Patient Records regulations: The Federal rules restrict any use of the information to criminally investigate or prosecute any alcohol or drug abuse patient.[facility] InstituteIn the event this information is protected by the Federal Confidentiality of Alcohol and Drug Abuse Patient Records regulations: The Federal rules restrict any use of the information to criminally investigate or prosecute any alcohol or drug abuse patient.[facility] InstituteIn the event this information is protected by the Federal Confidentiality of Alcohol and Drug Abuse Patient Records regulations: The Federal rules restrict any use of the information to criminally investigate or prosecute any alcohol or drug abuse patient.[facility] InstituteIn the event this information is protected by the Federal Confidentiality of Alcohol and Drug Abuse Patient Records regulations: The Federal rules restrict any use of the information to criminally investigate or prosecute any alcohol or drug abuse patient.[facility] InstituteIn the event this information is protected by the Federal Confidentiality of Alcohol and Drug Abuse Patient Records regulations: The Federal rules restrict any use of the information to criminally investigate or prosecute any alcohol or drug abuse patient.[facility] InstituteIn the event this information is protected by the Federal Confidentiality of Alcohol and Drug Abuse Patient Records regulations: The Federal rules restrict any use of the information to criminally investigate or prosecute any alcohol or drug abuse patient.[facility] InstituteIn the event this information is protected by the Federal Confidentiality of Alcohol and Drug Abuse Patient Records regulations: The Federal rules restrict any use of the information to criminally investigate or prosecute any alcohol or drug abuse patient.[facility] InstituteIn the event this information is protected by the Federal Confidentiality of Alcohol and Drug Abuse Patient Records regulations: The Federal rules restrict any use of the information to criminally investigate or prosecute any alcohol or drug abuse patient.[facility] InstituteIn the event this information is protected by the Federal Confidentiality of Alcohol and Drug Abuse Patient Records regulations: The Federal rules restrict any use of the information to criminally investigate or prosecute any alcohol or drug abuse patient.[facility] InstituteIn the event this information is protected by the Federal Confidentiality of Alcohol and Drug Abuse Patient Records regulations: The Federal rules restrict any use of the information to criminally investigate or prosecute any alcohol or drug abuse patient.[facility] InstituteIn the event this information is protected by the Federal Confidentiality of Alcohol and Drug Abuse Patient Records regulations: The Federal rules restrict any use of the information to criminally investigate or prosecute any alcohol or drug abuse patient.[facility] InstituteIn the event this information is protected by the Federal Confidentiality of Alcohol and Drug Abuse Patient Records regulations: The Federal rules restrict any use of the information to criminally investigate or prosecute any alcohol or drug abuse patient.[facility] InstituteIn the event this information is protected by the Federal Confidentiality of Alcohol and Drug Abuse Patient Records regulations: The Federal rules restrict any use of the information to criminally investigate or prosecute any alcohol or drug abuse patient.[facility] InstituteIn the event this information is protected by the Federal Confidentiality of Alcohol and Drug Abuse Patient Records regulations: The Federal rules restrict any use of the information to criminally investigate or prosecute any alcohol or drug abuse patient.[facility] InstituteIn the event this information is protected by the Federal Confidentiality of Alcohol and Drug Abuse Patient Records regulations: The Federal rules restrict any use of the information to criminally investigate or prosecute any alcohol or drug abuse patient.[facility] InstituteIn the event this information is protected by the Federal Confidentiality of Alcohol and Drug Abuse Patient Records regulations: The Federal rules restrict any use of the information to criminally investigate or prosecute any alcohol or drug abuse patient.[facility] InstituteIn the event this information is protected by the Federal Confidentiality of Alcohol and Drug Abuse Patient Records regulations: The Federal rules restrict any use of the information to criminally investigate or prosecute any alcohol or drug abuse patient.[facility] InstituteIn the event this information is protected by the Federal Confidentiality of Alcohol and Drug Abuse Patient Records regulations: The Federal rules restrict any use of the information to criminally investigate or prosecute any alcohol or drug abuse patient.[facility] InstituteIn the event this information is protected by the [facility] Confidentiality of Alcohol and Drug Abuse Patient Records regulations: The Federal rules restrict any use of the information to criminally investigate or prosecute any alcohol or drug abuse patient.[facility] InstituteIn the event this information is protected by the Federal Confidentiality of Alcohol and Drug Abuse Patient Records regulations: The Federal rules restrict any use of the information to criminally investigate or prosecute any alcohol or drug abuse patient.[facility] Care Teams (unrecognized sec tion and content) Food Services Director Relationship Specialty Start Date End Date Yenny Neely, NETWORK RELATIONS CONSULTANT.OTOLARYNGOLOGY SURGEON [address] [place] [address] PCP - General Internal Medicine 04/24/17 Soledad Peña (Historic) Unspecified 11/19/14 Food Services Director Relationship Specialty Start Date End Date Yenny Neely, NETWORK RELATIONS CONSULTANT.OTOLARYNGOLOGY SURGEON [address] [place] [address] PCP - General Internal Medicine 04/24/17 Soledad Peña (Historic) Unspecified 11/19/14 Food Services Director Relationship Specialty Start Date End Date Yenny Neely, NETWORK RELATIONS CONSULTANT.OTOLARYNGOLOGY SURGEON [address] [place] [address] PCP - General Internal Medicine 04/24/17 Soledad Peña (Historic) Unspecified 11/19/14 Food Services Director Relationship Specialty Start Date End Date Yenny Neely, NETWORK RELATIONS CONSULTANT.OTOLARYNGOLOGY SURGEON [address] [place] [address] PCP - General Internal Medicine 04/24/17 Soledad Peña (Historic) Unspecified 11/19/14 Food Services Director Relationship Specialty Start Date End Date Yenny Neely, NETWORK RELATIONS CONSULTANT.OTOLARYNGOLOGY SURGEON [address] [facility] [place] [address] PCP - General Internal Medicine 04/24/17 Soledad Peña (Historic) Unspecified 11/19/14 Food Services Director Relationship Specialty Start Date End Date Yenny Neely, NETWORK RELATIONS CONSULTANT.OTOLARYNGOLOGY SURGEON [address] [place] [address] PCP - General Internal Medicine 04/24/17 Soledad Peña (Historic) Unspecified 11/19/14 Food Services Director Relationship Specialty Start Date End Date Yenny Neely, NETWORK RELATIONS CONSULTANT.OTOLARYNGOLOGY SURGEON [address] [facility] [place] [address] PCP - General Internal Medicine 04/24/17 Soledad Peña (Historic) Unspecified 11/19/14 Food Services Director Relationship Specialty Start Date End Date Yenny Neely, NETWORK RELATIONS CONSULTANT.OTOLARYNGOLOGY SURGEON [address] [place] [address] PCP - General Internal Medicine 04/24/17 Soledad Peña (Historic) Unspecified 11/19/14 Food Services Director Relationship Specialty Start Date End Date Yenny Neely, NETWORK RELATIONS CONSULTANT.OTOLARYNGOLOGY SURGEON [address] [place] [address] PCP - General Internal Medicine 04/24/17 Soledad Peña (Historic) Unspecified 11/19/14 Food Services Director Relationship Specialty Start Date End Date Yenny Neely, NETWORK RELATIONS CONSULTANT.OTOLARYNGOLOGY SURGEON [address] [place] [address] PCP - General Internal Medicine 04/24/17 Soledad Peña (Historic) Unspecified 11/19/14 Food Services Director Relationship Specialty Start Date End Date Yenny Neely, NETWORK RELATIONS CONSULTANT.OTOLARYNGOLOGY SURGEON [address] [place] [address] PCP - General Internal Medicine 04/24/17 Soledad Peña (Historic) Unspecified 11/19/14 Food Services Director Relationship Specialty Start Date End Date Yenny Neely, NETWORK RELATIONS CONSULTANT.OTOLARYNGOLOGY SURGEON [address] [place] [address] PCP - General Internal Medicine 04/24/17 Soledad Peña (Historic) Unspecified 11/19/14 Food Services Director Relationship Specialty Start Date End Date Yenny Neely, NETWORK RELATIONS CONSULTANT.OTOLARYNGOLOGY SURGEON [address] [place] [address] PCP - General Internal Medicine 04/24/17 Soledad Peña (Historic) Unspecified 11/19/14 Food Services Director Relationship Specialty Start Date End Date Yenny Neely, NETWORK RELATIONS CONSULTANT.OTOLARYNGOLOGY SURGEON [address] [place] [address] PCP - General Internal Medicine 04/24/17 Soledad Peña (Historic) Unspecified 11/19/14 Food Services Director Relationship Specialty Start Date End Date Yenny Neely, NETWORK RELATIONS CONSULTANT.OTOLARYNGOLOGY SURGEON [address] [place] [address] PCP - General Internal Medicine 04/24/17 Soledad Peña (Historic) Unspecified 11/19/14 Food Services Director Relationship Specialty Start Date End Date Yenny Neely, NETWORK RELATIONS CONSULTANT.OTOLARYNGOLOGY SURGEON [address] [place] [address] PCP - General Internal Medicine 04/24/17 Soledad Peña (Historic) Unspecified 11/19/14 Food Services Director Relationship Specialty Start Date End Date Yenny Neely, NETWORK RELATIONS CONSULTANT.OTOLARYNGOLOGY SURGEON [address] [place] [address] PCP - General Internal Medicine 04/24/17 Soledad Peña (Historic) Unspecified 11/19/14 Food Services Director Relationship Specialty Start Date End Date Yenny Neely, NETWORK RELATIONS CONSULTANT.OTOLARYNGOLOGY SURGEON [address] [place] [address] PCP - General Internal Medicine 04/24/17 Soledad Peña (Historic) Unspecified 11/19/14 Food Services Director Relationship Specialty Start Date End Date Yenny Neely, NETWORK RELATIONS CONSULTANT.OTOLARYNGOLOGY SURGEON [address] [place] [address] PCP - General Internal Medicine 04/24/17 Soledad Peña (Historic) Unspecified 11/19/14 Food Services Director Relationship Specialty Start Date End Date Yenny Neely, NETWORK RELATIONS CONSULTANT.OTOLARYNGOLOGY SURGEON [address] [facility] [place] [address] PCP - General Internal Medicine 04/24/17 Soledad Peña (Historic) Unspecified 11/19/14 Food Services Director Relationship Specialty Start Date End Date Yenny Neely, NETWORK RELATIONS CONSULTANT.OTOLARYNGOLOGY SURGEON [address] [place] [address] PCP - General Internal Medicine 04/24/17 Soledad Peña (Historic) Unspecified 11/19/14 Food Services Director Relationship Specialty Start Date End Date Yenny Neely, NETWORK RELATIONS CONSULTANT.OTOLARYNGOLOGY SURGEON [address] [facility] [place] [address] PCP - General Internal Medicine 04/24/17 Soledad Peña (Historic) Unspecified 11/19/14 Food Services Director Relationship Specialty Start Date End Date Yenny Neely, NETWORK RELATIONS CONSULTANT.OTOLARYNGOLOGY SURGEON [address] [place] [address] PCP - General Internal Medicine 04/24/17 Soledad Peña (Historic) Unspecified 11/19/14 Food Services Director Relationship Specialty Start Date End Date Yenny Neely, NETWORK RELATIONS CONSULTANT.OTOLARYNGOLOGY SURGEON [address] [facility] [place] [address] PCP - General Internal Medicine 04/24/17 Soledad Peña (Historic) Unspecified 11/19/14 Food Services Director Relationship Specialty Start Date End Date Yenny Neely, NETWORK RELATIONS CONSULTANT.OTOLARYNGOLOGY SURGEON [address] [place], [place] [id number] PCP - General Internal Medicine 04/24/17 Soledad Peña (Historic) Unspecified 11/19/14 Food Services Director Relationship Specialty Start Date End Date Yenny Neely, NETWORK RELATIONS CONSULTANT.OTOLARYNGOLOGY SURGEON [address] [place], [place] [id number] PCP - General Internal Medicine 04/24/17 Soledad Peña (Historic) Unspecified 11/19/14 Food Services Director Relationship Specialty Start Date End Date Yenny Neely, NETWORK RELATIONS CONSULTANT.OTOLARYNGOLOGY SURGEON [address] [place], [place] [id number] PCP - General Internal Medicine 04/24/17 Soledad Peña (Historic) Unspecified 11/19/14 Food Services Director Relationship Specialty Start Date End Date Yenny Neely, NETWORK RELATIONS CONSULTANT.OTOLARYNGOLOGY SURGEON [address] [facility] [place], [place] [id number] PCP - General Internal Medicine 04/24/17 Soledad Peña (Historic) Unspecified 11/19/14 Reason for Visit (unrecogniz ed section and content) Reason Comments Diabetes Reason Comments Results Reason Onset Date Comments Refill Request 11/15/2021 Reason Comments Counseling LCS Reason Comments Smoking Cessation Reason Comments Results CT Chest Reason Comments Spirometry Specialty Diagnoses / Procedures Referred By Contac t Referred To Contact [facility] Diagnoses Wheezing Procedures SPIROMETRY - BASELINE AND POST DILATOR BRNCDILAT RSPSE SPMTRY PRE&POST-BRNCDILAT ADMN Francisco Montes, NETWORK RELATIONS CONSULTANT.OTOLARYNGOLOGY SURGEON [address] [place] [address] Respiratory [place] [address] [place] [address] Referral ID Status Reason Start Date Expiration Date V isits Requested Visits Authorized [id number] Closed Auto-Generate d Referral 02/07/2022 03/09/2023 1 1 Reason Comments Results Spirometry results Reason Comments Patient Question Reason Comments Opened In Error Reason Comments Referral Request Wants results of xra ys . Needs referred to ortho Reason Comments Forms [employer] form Reason Comments Orders Reason Comments Appointment Reason Comments Refill Request Reason Comments Results Reason Comments Radiology CT Specialty Diagnoses / Procedures Referred By Low lim Referred To Contact CT IMAGING Diagnoses Tobacco use current Encounter for screening for lung cancer Procedures CT LUNG SCREEN WO IVCON COMPUTED TOMOGRAPHY THORAX LW DOSE LNG CA SCR C- Junaid Montesa, NETWORK RELATIONS CONSULTANT.OTOLARYNGOLOGY SURGEON [address] [place] [address] [place] [id number] Referral ID Status Reason Start Date Expiration Date V isits Requested Visits Authorized [id number] Closed Auto-Generate d Referral 02/19/2023 07/12/2023 1 1 Reason Comments Orders FOR RECORDS PERTAINING TO PATIENTS WHO ARE OR HAVE BEEN ENROLLED IN A CHEMICAL DEPENDENCY/SUBSTANCEABUSE PROGRAM, SOME INFORMATION MAY BE OMITTED. This clinical summary was aggregated from multiple sources. Caution should be exercised in using it in the provision of clinical care. This summary normalizes information from multiple sources, and as a consequence, information in this document may materially change the coding, format and clinical context of patient data. In addition, data may be omitted in some cases. CLINICAL DECISIONS SHOULD BE BASED ON THE PRIMARY CLINICAL RECORDS. [employer] provides no warranty or guarantee of the accuracy or completeness of information in this document.
== END | disposition home or self-care (01) ==
LOC: MRI 06:25
PROVIDERS: PCP Nurse Practitioner Adult Health; Referring Provider Orthopaedic Surgery; Visit Provider Orthopaedic Surgery
DX: S22.000A Wedge compression fracture of unspecified thoracic vertebra, initial encounter for closed fracture (principal); X58.XXXA Exposure to other specified factors, initial encounter
CPT/HCPCS: 72146

== ENCOUNTER → 2023-04-30 | Outpatient (CLI) | payer MEDICAID, SELFPAY ==
--- NOTE | 2023-04-30 10:59 | BD_ITS ---
STUDY: DUAL ENERGY X-RAY ABSORPTIOMETRY / DXA REASON FOR EXAM: Female, 63 years old. S22.000A TECHNIQUE: Bone Mineral Density (BMD) measurements of lumbar spine and bilateral hips were obtained. COMPARISON: None. FINDINGS: Lumbar Spine (L1-L4): g/cm2 (0.954) / T-score (-0.8) / Z-score (0.8) Findings are suggestive of normal bone density with a low fracture risk. Left Femur Total: g/cm2 (0.769) / T-score (-1.4) / Z-score (-0.3) Left Femoral Neck: g/cm2 (0.655) / T-score (-1.7) / Z-score (-0.3) Right Femur Total: g/cm2 (0.715) / T-score (-1.9) / Z-score (-0.7) Right Femoral Neck: g/cm2 (0.648) / T-score (-1.8) / Z-score (-0.4) BD/Dexa Bone Density Study IMPRESSION: The patient is considered osteopenic as outlined below according to World Marko Organization (WHO) criteria with a moderate fracture risk. Reference Information: The T-score is the number of standard deviations above or below the standard which is normal for young adults at their peak bone mineral density. The World Health Organization (WHO) interprets the T-scores as follows: Above -1 Normal bone density Between -1 and -2.5 Osteopenia Equal to / or below -2.5 Osteoporosis As a practical clinical guideline, osteopenia may be graded as follows: Mild -1 through -1.5 Moderate -1.6 through -2.0 Severe -2.1 through -2.4 The Z-score is the number of standard deviations above or below age-matched controls. A Z-score of less than -1.5 would be considered abnormal. References: 1. NIH Osteoporosis and Related Bone Diseases www osteo.org 2. International Society for Clinical Densitometry www iscd.org 3. National Osteoporosis Foundation www nof.org Electronically Signed: Ian Cutler MD at 13:46 EST ,
== END | disposition home or self-care (01) ==
LOC: OPBD 10:53
PROVIDERS: PCP Nurse Practitioner Adult Health; Referring Provider Orthopaedic Surgery; Visit Provider Orthopaedic Surgery
DX: S22.000A Wedge compression fracture of unspecified thoracic vertebra, initial encounter for closed fracture (principal); X58.XXXA Exposure to other specified factors, initial encounter
CPT/HCPCS: 77080

== ENCOUNTER → 2023-08-15 | Outpatient (CLI) | payer MEDICAID, SELFPAY ==
--- NOTE | 2023-08-15 16:59 | MRI_ITS ---
STUDY: MRI LUMBAR SPINE WITHOUT CONTRAST REASON FOR EXAM: Female, 63 years old. LOW BACK PAIN TECHNIQUE: Standardized fat and water weighted pulse sequences were obtained in the sagittal and axial planes. COMPARISON: X-ray FINDINGS: T12-L1: Normal endplates. Normal disc height, hydration and morphology. Normal bilateral facet joints. Normal central canal and bilateral lateral recesses. Normal bilateral intervertebral neural foramina. Normal lumbar lordosis. There is grade 1 anterolisthesis at L4-5. There is no substantial scoliosis. Normal conus medullaris that terminates at the L1 level. L1-2: Disc bulge and spurring with left paracentral disc protrusion, series 11 image 26. Mild canal stenosis. Mild left foraminal narrowing L2-3: Disc bulge. Facet spurring and ligamentum flavum hypertrophy. Mild canal stenosis. Neural foramina are patent. L3-4: Disc bulge and mild spurring. Facet spur and ligamentum flavum hypertrophy. Moderate canal stenosis. Right foraminal narrowing. L4-5: Disc bulge and spurring with right paracentral disc extrusion extending superior to the disc space, series 11 image 12. Facet spurring and ligamentum flavum hypertrophy. Severe canal stenosis. Bilateral foraminal distortion and narrowing. L5-S1: Disc space narrowing with endplate change. Disc bulge and spurring. Facet spurring. Moderate canal stenosis. Bilateral foraminal narrowing. Normal visualized sacral ala. Normal visualized paraspinous soft tissue structures. MRI/Spine Lumbar (Routine) IMPRESSION: Multilevel degenerative changes, as described above. Electronically Signed: Neymar Elliott MD at 12:36 EDT ,
== END | disposition home or self-care (01) ==
LOC: MRI 16:56
PROVIDERS: PCP Nurse Practitioner Adult Health; Referring Provider Orthopaedic Surgery; Visit Provider Orthopaedic Surgery
DX: M51.37 Other intervertebral disc degeneration, lumbosacral region (principal); M43.10 Spondylolisthesis, site unspecified
CPT/HCPCS: 72148

== ENCOUNTER 2023-11-06 12:01 | Inpatient (IN) | payer MEDICAID, SELFPAY ==
[2023-10-25 15:13] LABS: Absolute Lymphocyte Count 2.61 X10^3/uL (0.83-4.51); Absolute Neutrophil Count 5.1 X10^3/uL (2.0-7.7); Basophil# 0.06 X10^3/uL; Basophil% 0.7 % (0-1); Eosinophil# 0.28 X10^3/uL; Eosinophils% 3.2 % (0-5); Hematocrit 46.2 % (37-47); Hemoglobin 15.2 g/dL (12.0-15.0); Lymphocyte # 2.61 X10^3/ul (0.83-4.51); Mean Corp Hgb Conc 32.9 g/dL (32-36); Mean Corpuscular Volume 91.1 fL (81-99); Mean Platelet Vol. 10.1 fl (6.2-12.0); Monocyte# 0.64 X10^3/uL; Monocyte% 7.4 % (0-10); NRBC Flagged by Analyzer 0 % (0-5); Neutrophil # 5.07 X10^3/uL (2.7-7.7); Neutrophil % 58.2 % (47-70); Platelet Count 286 K/mm3 (150-450); RBC Distribution Width CV 13.2 % (11.6-14.6); RBC Distribution Width SD 44.8 fl (35.1-43.9); Red Blood Count 5.07 M/mm3 (4.2-5.4); White Blood Count 8.7 K/mm3 (4.4-11.0)
[2023-10-25 15:35] LABS: Anion Gap 8 (5-15); BUN 19 mg/dL (7-18); BUN/Creat Ratio 24.1 RATIO (10-20); Chloride 105 mmol/L (98-107); Creatinine, Serum 0.79 mg/dL (0.55-1.02); EST Glomerular Filtration Rate 78 mL/min (>60); Est Glom Filt Rate - Afr Amer 95 mL/min (>60); Glucose 109 mg/dL (74-106); Sodium Level 139 mmol/L (136-145)
[2023-10-25 15:51] LABS: Hemoglobin A1c 6.3 % (3.8-5.6)
[2023-10-25 19:11] LABS: Magnesium 2.6 mg/dL (1.6-2.6)
[2023-10-25 19:52] LABS: HIV - WCH Non-Reactive (Nonreactive)
[2023-10-25 19:53] LABS: Hepatitis B Surface Antibody Non-Reactive
[2023-10-28 06:57] LABS: Hepatitis C Antibody REACTIVE (Nonreactive)
[2023-10-29 11:59] LABS: Hepatitis A AB, Total Positive (Negative)
[2023-11-06] VITALS (24 sets, daily range): BP systolic 99–140; BP diastolic 58–90; PULSE 70–94; RESP 14–20; TEMP 36.2–36.7; O2SAT 84–96; BMI 29.6
[2023-11-06] MEDS: Magnesium 1 GM over 15 mins IV (06:03)
[2023-11-06] MEDS: Acetaminophen 500 MG Tablet 1000 MG PO ×3 (06:04→20:55)
[2023-11-06] MEDS: Lactated Ringers 1,000 ML 15 ML IV ×3 (06:05→14:42)
[2023-11-06 06:22] LABS: Bedside Glucose 148 mg/dL (74-106)
--- NOTE | 2023-11-06 06:30 | RAD_ITS ---
STUDY: X-RAY - LUMBAR SPINE REASON FOR EXAM: Female, 63 years old. 360 FUSION L4-5 TECHNIQUE: 2 view(s) of the lumbar spine were obtained. COMPARISON: 09/02/2023 FINDINGS: 43 seconds of fluoroscopy the lumbar spine was utilized in operating room during discectomy, interbody fusion and transpelvic fixation and 12 images submitted for interpretation. . RAD/Lumbar Spine 2 or 3 Views IMPRESSION: Fluoroscopy during lumbar spine fusion. Electronically Signed: Kevin Christine MD at 13:39 EDT ,
--- NOTE | 2023-11-06 07:04 | PCM.PRE.AN2 ---
ASA Classification* ASA Classification ASA Classification: 2 Assessment & Plan Anesthesia* Anesthesia Assessment Anesthesia Assessment: Discussed sedation and/or anesthesia options, risks, benefits, and alternatives with patient/parents/legal guardian/POA. Questions invited. The patient/parents/legal guardian/POA seems to understand and agrees to proceed with anesthesia plan. Reviewed the physical assessment, medical history, allergy history and patient home medications list prior to surgery/procedure/anesthetic and documented any changes. Performed airway and anesthesia risk assessments. Anesthesia Type Anesthesia Type: General Anesthesia Focused Assessment* Temperature: 97.2 F Pulse Rate: 74 Blood Pressure: 132/89 Respiratory Rate: 16 Pulse Ox: 94 Airway Assessment Mouth opens: >3 cm Mallampati Score: II Focused Labs Anesthesia Preop lab: CBC WBC 8.7 K/mm3 (4.4-11.0) 10/25/23 14:20 RBC 5.07 M/mm3 (4.2-5.4) 10/25/23 14:20 Hgb 15.2 g/dL (12.0-15.0) H 10/25/23 14:20 Hct 46.2 % (37-47) 10/25/23 14:20 Plt Count 286 K/mm3 (150-450) 10/25/23 14:20 CHEMISTRY Potassium 4.0 mmol/L (3.5-5.1) 10/25/23 14:20 Sodium 139 mmol/L (136-145) 10/25/23 14:20 Magnesium 2.6 mg/dL (1.6-2.6) 10/25/23 14:20 BUN 19 mg/dL (7-18) H 10/25/23 14:20 Creatinine 0.79 mg/dL (0.55-1.02) 10/25/23 14:20 Glucose 109 mg/dL (74-106) H 10/25/23 14:20 POC Glucose 148 mg/dL (74-106) H 11/06/23 06:00 COAG PT 12.4 SECONDS (11.7-14.9) 06/21/22 09:08 Pre-Assessment Diagnosis/Proposed Procedure Planned Operative Procedure(s): ERAS 360 Lumbar Fusion L4-5 Anesthesia History Anesthesia History - magisterial district judge: Anesthesia History - magisterial district judge Hx Hospitalization No 10/22/23 10:03 Any Problems With Anesthesia Yes: PT STATES SHE WAKES UP 10/22/23 10:03 ANXIOUS Cholinesterase deficiency No 10/22/23 10:03 You/Your Family Experience No 10/22/23 10:03 fever (hyperthermia) with Relationship Recent Exposure to Contagious No 11/06/23 05:58 Disease Does patient have nerve No 10/22/23 10:03 stimulator Patient instructed to have device shut off --Does patient have Pacemaker No 11/06/23 05:58 or ICD? When Was Last Pacemaker Check QUESTION #4 FULL TEXT: You/Your Family Experience fever (hyperthermia) with Anesthesia Last Oral Intake Last Oral intake: Last Oral Intake NPO since 21:00 11/06/23 05:58 Meds taken in AM with sips of water? Meds patient instructed to take am of surgery PONV PONV - magisterial district judge: PONV - magisterial district judge Female Yes 10/22/23 10:03 HX of Motion Sickness No 10/22/23 10:03 HX of N/V After Surgery No 10/22/23 10:03 Non-Smoker Yes 10/22/23 10:03 Duration of Surgery greater Yes 10/22/23 10:03 than 60 minutes Number of Risk Factors 3 10/22/23 10:03 PONV Score Moderate Risk 10/22/23 10:03 Height & Weight Height & Weight: Anesthesia: Height & Weight Height 5 ft 9 in 11/06/23 05:58 Weight: 91 kg 11/06/23 05:58 Body Mass Index (BMI) 29.6 11/06/23 05:58 Respiratory Assessment Respiratory Assessment - magisterial district judge: Respiratory Tract Infection Hx - magisterial district judge Hx Respiratory Tract Infection No 10/22/23 10:03 STOP Sleep Apnea STOP Sleep Apnea - magisterial district judge: STOP Sleep Apnea - magisterial district judge Hx Hypertension Yes: CONTROLLED ON MED 10/22/23 10:03 Hx Sleep Apnea No 10/22/23 10:03 CPAP BIPAP Do you snore loudly (louder No 10/22/23 10:03 than talking or can be heard Do you often feel tired/ No 10/22/23 10:03 fatigued/ sleepy during daytime? Has anyone observed you stop No 10/22/23 10:03 breathing during sleep? STOP Results Negative 10/22/23 10:03 QUESTION #5 FULL TEXT : Do you snore loudly (louder than talking or can be heard through closed doors)? Tobacco Use History Tobacco Use History - magisterial district judge: Tobacco Use History - magisterial district judge Tobacco Use Smoking Status Former smoker 10/22/23 10:03 Hx Tobacco Use Yes 10/22/23 10:03 Years Smoking Packs Smoked per Day Smoking Cessation Date was Yes - quit smoking within 15 10/22/23 10:03 within the last 15 years years Hx Smoking Cessation Date 08/31/23 10/22/23 10:03 Hx Smoking Cessation Counseling Hematologic Medial History Hematologic Hx - magisterial district judge: Hematologic Medical Hx - welder plasma arc Hx of Blood Transfusion No 10/22/23 10:03 Hx of Transfusion in last 3 No 10/22/23 10:03 Months Date of Last Transfusion (if within last 3 months) Ever experience any problems No 10/22/23 10:03 with transfusion(s)? Specify any problems Hx of Preganancy in last 3 No 10/22/23 10:03 Months Nurse Filling Out Transfusion VCHRISTIN 10/22/23 10:03 & Questions: Date: 10/22/23 10/22/23 10:03 Time: 10:04 10/22/23 10:03 Patient unable to answer at this time (ie. confused, unrespo /Reproduction History /Reproductive History - magisterial district judge: /Reproductive Hx- magisterial district judge Hx Now Gestational Age (in weeks): EDC: Hx Hx Para Hx Section SAB No 10/22/23 10:03 Active Medications Active Medications: Current Medications Generic Name Dose Route Start Last Admin Trade Name Devin PRN Reason Stop Dose Admin Acetaminophen 1,000 mg 11/06/23 07:30 11/06/23 06:04 Acetaminophen 500 Mg Tablet PO 11/06/23 07:31 1,000 mg X1 ONE Administration Cefazolin Sodium 2 gm/ Sodium 110 mls @ 150 mls/hr 11/06/23 07:30 Chloride IV 11/06/23 08:13 PREOP ONE Magnesium Sulfate 1 gm/ 102 mls @ 408 mls/hr 11/06/23 07:30 11/06/23 06:03 Dextrose IV 11/06/23 07:44 408 mls/hr X1 ONE Administration Lactated Ringer's 1,000 mls @ 15 mls/hr 11/06/23 06:00 11/06/23 06:05 IV 15 mls/hr .Q48H BATOOL Administration Insulin Human Lispro 1 - 6 unit 11/06/23 07:30 Insulin Lispro 100 Unit/Ml Insuln.Pen SC 11/06/23 13:30 Q4H PRN PRN BG>/= 180, SEE PROTOCOL Protocol PFSH Medical History Former smoker Wears glasses Depression Anxiety History of steroid therapy Arthritis Excessive bleeding Restless legs Back pain Injury of back Migraine headache History of IBS Smoker COPD (chronic obstructive pulmonary disease) Chronic cough Leg cramps History of pain when walking Fibromyalgia History of rheumatic fever Hypertension Diabetes Home Medications ?Medication ?Instructions ?Recorded ?Last Taken ?Type albuterol sulfate 90 mcg/actuation 1 inh inhalation PRN PRN COPD 02/28/22 11/06/23 02:00 History aerosol inhaler hydrochlorothiazide 25 mg tablet 25 mg PO DAILY BP 02/28/22 11/05/23 History lidocaine 5 % topical ointment 1 applic topical DAILY PAIN 02/28/22 Unknown History metformin 500 mg tablet 500 mg PO BID DIABETES 02/28/22 11/05/23 History amlodipine 5 mg tablet 5 mg PO DAILY BP 04/25/22 11/06/23 05:00 History loratadine 10 mg tablet (Claritin) 10 mg PO DAILY ALLERGIES 04/25/22 11/05/23 History amoxicillin 500 mg tablet 2,000 mg (4 x 500 mg) PO ONCE 10/05/22 Unknown Rx PROPHALACTIC #4 tabs venlafaxine 75 mg capsule,extended 75 mg PO QHS DEPRESSION 07/24/23 11/05/23 History release 24 hr calcium carbonate 600 mg-vitamin 1 tab PO DAILY SUPPLEMENT 10/22/23 11/05/23 History D3 5 mcg (200 unit) tablet (Calcium 600 + D(3)) cholecalciferol (vitamin D3) 25 25 mcg PO DAILY SUPPLEMENT 10/22/23 11/05/23 History mcg (1,000 unit) capsule (Vitamin D3) magnesium 250 mg tablet 250 mg PO DAILY SUPPLEMENT 10/22/23 11/05/23 History potassium gluconate 595 mg (99 mg) 595 mg PO DAILY SUPPLEMENT 10/22/23 11/05/23 History tablet zinc gluconate 50 mg tablet 50 mg PO DAILY SUPPLEMENT 10/22/23 11/05/23 History Allergy/AdvReac Type Severity Reaction Status Date / Time Latex, Natural Rubber Allergy Hives Verified 11/06/23 05:57 aspirin AdvReac Nausea/Vom/ Verified 11/06/23 05:57 Diarrhea Family History Mother Cancer Father Heart problem Surgical History History of total right knee replacement Hx of hernia repair Hx of oophorectomy Hx of tonsillectomy Hx of appendectomy Social History Smoking Status: Former smoker alcohol intake: never Review of Systems (Anesthesia) ROS Narrative System reviewed and no additional complaints, except as documented.
[2023-11-06] MEDS: Ipratropium/Albuterol Sulfate 3 ML AMPUL.NEB INHALATION (07:22)
--- NOTE | 2023-11-06 07:27 | HP.PCM_ITS ---
History and Physical Date of Admission: 11/06/23 MR#: [id number] Acct: [id number] Name: EMILIA CARDENAS Rep #: [id number] : 1960 Provider: Dr. aSul Cheung MD Age/Sex: 63/F [place] [facility] [place] Status: Signed Intake Vital Signs 07/24/2412:24 10/29/2409:50 Height 5 ft 9 in 5 ft 9 in Weight: 200 lb BMI 29.5 Intake Visit Reasons: lumbar spine Chief Complaint: lumbar spine Accompanied by: Self Is patient in pain?: Yes Pain scale (1-10): 8 Allergies aspirin Allergy (Verified 10/30/23 10:52) Nausea/Vom/DiarrheaLatex, Natural Rubber Allergy (Verified 10/30/23 10:52) Hives Medications ?Medication ?Instructions ?Recorded ?Confirmed ?Type albuterol sulfate 90 mcg/actuation 1 inh inhalation PRN PRN COPD 02/28/22 10/30/23 History aerosol inhaler hydrochlorothiazide 25 mg tablet 25 mg PO DAILY BP 02/28/22 10/30/23 History lidocaine 5 % topical ointment 1 applic topical DAILY PAIN 02/28/22 10/30/23 History metformin 500 mg tablet 500 mg PO BID DIABETES 02/28/22 10/30/23 History amlodipine 5 mg tablet 5 mg PO DAILY BP 04/25/22 10/30/23 History loratadine 10 mg tablet (Claritin) 10 mg PO DAILY ALLERGIES 04/25/22 10/30/23 History amoxicillin 500 mg tablet 2,000 mg (4 x 500 mg) PO ONCE 10/05/22 10/30/23 Rx PROPHALACTIC #4 tabs venlafaxine 75 mg capsule,extended 75 mg PO QHS DEPRESSION 07/24/23 10/30/23 History release 24 hr calcium carbonate 600 mg-vitamin 1 tab PO DAILY SUPPLEMENT 10/22/23 10/30/23 History D3 5 mcg (200 unit) tablet (Calcium 600 + D(3)) cholecalciferol (vitamin D3) 25 25 mcg PO DAILY SUPPLEMENT 10/22/23 10/30/23 History mcg (1,000 unit) capsule (Vitamin D3) magnesium 250 mg tablet 250 mg PO DAILY SUPPLEMENT 10/22/23 10/30/23 History potassium gluconate 595 mg (99 mg) 595 mg PO DAILY SUPPLEMENT 10/22/23 10/30/23 History tablet zinc gluconate 50 mg tablet 50 mg PO DAILY SUPPLEMENT 10/22/23 10/30/23 History PFSH Medical History Former smoker Wears glasses Depression Anxiety History of steroid therapy Arthritis Excessive bleeding Restless legs Back pain Injury of back Migraine headache History of IBS Smoker COPD (chronic obstructive pulmonary disease) Chronic cough Leg cramps History of pain when walking Fibromyalgia History of rheumatic fever Hypertension Diabetes Surgical History History of total right knee replacement Hx of hernia repair Hx of oophorectomy Hx of tonsillectomy Hx of appendectomy Family History Mother CancerFather Heart problem Social History Smoking Status: Former smoker alcohol intake: never HPI lumbar spine Details: This documentation accurately reflects the service provided and the decisions made by me, Dr. Saul Cheung MD 10/30/23 1049. Part of today?s visit was documented by Dina SWANSON , acting as scribe. EMILIA CARDENAS is a 63 year old F here today for Pre-op d.o.s 11/06/2023 Patient is having a 360 Lumbar Fusion L4-5. Continues to have back pain the last couple of weeks. 09/02/23: EMILIA CARDENAS is a 63 year old F here today for Back pain. Patient was referred to you by Dr Campbell for thoracic and lumbar pain. Emilia has been referred by Dr. Campbell. She has had low back pain since her 40s which were episodic and usually last only for a few days to now that she is getting at least 4 episodes every month of severe painful spasms in the back and pain going into the bilateral buttock region into the legs bilaterally. She has difficulty walking distances and has to rely on the shopping cart. She has had injections through pain management previously which did not seem to help. She is otherwise fairly active but her symptoms are making it difficult for her to do activities of daily living. Ortho Exam General General: Yes no acute distress Neurologic: Yes alert and Yes oriented x3 Spine SPINE TESTING CERVICAL THORACIC LUMBAR Musculoskeletal Strength 0=absent - 5=normal Details: Examination the back shows midline and bilateral paraspinal tenderness. Neurologic motion of lower extremity shows 5 x 5 power normal shows normal sensations in all dermatomes. Coding Level of Care Code Off vis,est,level 4 Diagnoses Spinal stenosis of lumbar region with neurogenic claudication M48.062 Spondylolisthesis, lumbar region M43.16 Time Spent (min) 35 Assessment and Plan Assessment and Plan (1) Spinal stenosis of lumbar region with neurogenic claudication: Status: Acute (2) Spondylolisthesis, lumbar region: Status: Acute Plan I again reviewed her previous x-rays and MRI of the lumbar spine. She has L4-5 grade 1 spondylolisthesis with dynamic instability on flexion-extension views. She has significant central as well as foraminal stenosis at this level on the MRI. She has L5-S1 disc degeneration with bilateral lateral recess stenosis. Right L3-4 shows foraminal stenosis. I again explained to her the imaging findings in detail. She has significant reduction of her spondylolisthesis on the supine MRI as compared to the upright x-rays. I explained to her neurogenic claudication that she is getting from the unstable spondylolisthesis. Although she has degeneration and foraminal stenosis at L3-4 L5-S1, these do not seem to correlate with the area of her radicular pain and claudication. I discussed options of treatment which include continued nonoperative treat measures versus surgery. Physical therapy and epidural injections were discussed. Patient mentioned that her symptoms are affecting her quality of life. Epidural injections in the past have not seem to given her relief. She would like to proceed with surgical intervention. Surgical options were discussed. L4-5 anterior posterior fusion was discussed in detail. All risk benefits and alternatives were discussed. Risks of surgery include bleeding, infection, visceral injury, ileus, hardware failure, pseudoarthrosis, adjacent segment degeneration, pneumonia, DVT, pulmonary embolism, atelectasis, gait abnormality, persistent pain, stretch injuries, chance for future surgeries. Patient understands and agrees to proceed with surgery. Explained in detail the procedure of the lumbar fusion. Discussed post surgery restrictions such as no bending, lifting, or twisting. Answered all questions that she had today in preparation for next week. Consent was signed. Patient is in agreement.
[2023-11-06] MEDS: Cefazolin 2 GM in 0.9% Normal Saline (100mL Bag) 100 ML IV ×2 (08:00→17:06)
[2023-11-06] MEDS: Ropivacaine 0.5% 30 ML Vial (11:23)
--- NOTE | 2023-11-06 11:52 | PCM.POST.ANE ---
Anesthesia: Postop Eval I Current Vital Signs Temperature: 98 F Pulse Rate: 90 Blood Pressure: 140/83 Respiratory Rate: 16 Pulse Ox: 93 Oxygen Delivery Method: Room Air Assessment Airway patent: Yes Spontaneous unlabored respirations: Yes Mental status: Awake and Calm nausea: No Vomiting: No Anesthesia Complication: No Fluid Hydration Crystalloid volume administer (ml): 1,500 Total IV fluid infused: 1,500 Progress Note Anesthesia document: Postop Eval 1 completed: Yes
--- NOTE | 2023-11-06 12:05 | PCM.OPRPT ---
Report of Operation Date of Procedure: 11/06/23 Description of Surgical Findings:: Preoperative diagnosis: L4-5 spondylolisthesis, disc degeneration, stenosis with neurogenic claudication Postoperative diagnosis: Same Name of procedures L4-5 oblique lumbar interbody fusion (OLIF), minimally invasive left sided approach, lateral decubitus: ? L4-5 anterolateral spinal fusion 39290 ? L4-5 insertion of cage [id number] ? Bone graft aspirate left iliac crest separate incision ? Allograft cancellous chips Attending Surgeon: Dr. Saul Cheung Estimated blood loss: 50 mL Anesthesia: General Complications: None Indications: Patient is a 63-year-old pleasant lady who has had a long history of low back pain and radiating to both lower extremities, difficulty walking distances. Xrays & MRI revealed L4-5 grade 1 spondylolisthesis with instability with stenosis. After undergoing a prolonged period of nonoperative treatment, the patient elected to undergo surgical decompression & fusion. All surgical options were discussed with the patient including anterior and posterior approaches. All risks and benefits associated with the procedure were explained to the patient. The risks include but are not limited to infection, bleeding, injury to nerves and vessels including major vessels like IVC and aorta, persistent paresthesia, persistent pain, dural tear, need for further procedures, adjacent segment degeneration, pseudoarthrosis, hardware failure, retrograde ejaculation, paralytic ileus, etc. Procedure: The patient was identified in the preoperative holding suite using Unique patient identifiers. Skin was marked, consent was reviewed, and all questions were answered. The patient was then brought back to the operative room. A surgical timeout was performed to make sure correct procedure was being done on the correct patient and all operative room staff were on the same page. General endotracheal anesthesia was then given to the patient. Zamarripa catheter was inserted. The patient was then carefully positioned in right lateral decubitus position with the left side up on a regular OR table. Axillary roll was placed and all bony prominences were well- padded. Hip positioners were placed in the posterior buttocks and anterior sternal area. The surgical area was prepped and draped in usual fashion. Preoperative antibiotic was injected IV as preoperative antibiotic. A final timeout was then again done just before starting the procedure. A 2 inch incision oblique was taken in the left lower quadrant of the abdomen 2 fingerbreadths away from the iliac crest and the lower ribs. Sharp dissection with Bovie was carried out up to the fascia covering the external oblique. The external oblique, internal oblique and transversus abdominis muscles were split along the muscle fibers and retroperitoneal space was entered. Sponge sticks were utilized to move the bowel and peritoneum [id number]-way and psoas muscle was exposed staying within the retroperitoneal plane. [employer] retractor system was positioned and the retractor blade was applied onto the psoas. The interval between psoas and midline structures was developed and appropriate retractors were placed. Once adequate interval was cleared, a disc space was identified and a marker x-ray was taken. This identified the L4-5 disc level. Annulotomy was done with a long handled knife. Pituitary was used to remove disc material. Curettes were used to prepare the endplates. Disc space spreaders were utilized to distract and increase the disc height. Near complete discectomy was performed. Smaller disc distractors were also used to bluntly perform a contralateral annulotomy. Trials of serially increasing sizes were used. A Jamshidi needle was used to aspirate bone marrow from the left anterior iliac crest through a separate incision and this aspirate was mixed with the allograft bone chips. A Depuy [place] cage of size of the 18 x 50 x 14 mm with 15 degrees lordosis was packed with corticocancellous allograft bone chips mixed with bone marrow aspirate. This was inserted into the L4-5 disc space. AP and lateral C-arm pictures were taken to confirm good position of the cage. Some bone chips were also packed around the cages. Screw with washer was placed into the lower L4 body with a washer partially covering the cage at L4-5. Hemostasis was confirmed. The retractor blades were removed. Closure was done in layers with a continuous strand of # 1 Vicryl in all muscle layers. 2-0 Vicryl was used for subcutaneous tissue and 4-0 for Monocryl for the skin. Steri-Strips were applied and 4 x 4 gauze and Tegaderm were applied. Surgeon: Saul Cheung chemical etching processor: Marcia Mcneil Admit VTE Documentation VTE Mechan Device Prophylaxis: SCD's Procedures Musculoskeletal 20xxx-29xxx: Other Procedure See Report
--- NOTE | 2023-11-06 12:11 | POSTOPAN2_ITS ---
Anesthesia Postop Eval I Sum Postop Eval Completion status Anesthesia document: Postop Eval 1 completed: Yes Anesthesia Postop Eval I Summary Anesthesia Postop Eval I Summary: Anesthesia Postop Eval I: Assessment Summary Airway patent Yes 11/06/23 11:53 ROTARY SCREEN PRINTING MACHINE OPERATOR.[email or web address] Spontaneous unlabored Yes 11/06/23 11:53 ROTARY SCREEN PRINTING MACHINE OPERATOR.JOSE respirations Mental status Awake,Calm 11/06/23 11:53 ROTARY SCREEN PRINTING MACHINE OPERATOR.[email or web address] nausea No 11/06/23 11:53 ROTARY SCREEN PRINTING MACHINE OPERATOR.JOSE Vomiting No 11/06/23 11:53 ROTARY SCREEN PRINTING MACHINE OPERATOR.JOSE Anesthesia Postop Eval I: Fluid Summary Crystalloid volume administer 1,500 11/06/23 11:53 ROTARY SCREEN PRINTING MACHINE OPERATOR.[email or web address] (ml) Colloids volume administered ( ml) Blood Product volume administered (ml) Total IV fluid infused 1,500 11/06/23 11:53 ROTARY SCREEN PRINTING MACHINE OPERATOR.JOSE Anesthesia Postop Eval I: Summary Notes Anesthesia Complication No 11/06/23 11:53 ROTARY SCREEN PRINTING MACHINE OPERATORJEREMIAS Anesthesia Complication Comment: Post-operative progress note Anesthesia: Postop Eval II Evaluation Mental status: Awake Pain Level: 0 nausea: No Vomiting: No
--- NOTE | 2023-11-06 12:11 | PCM.OPRPT ---
Report of Operation Date of Procedure: 11/06/23 Description of Surgical Findings:: Preoperative diagnosis: L4-5 spondylolisthesis, disc degeneration, stenosis with neurogenic claudication Postoperative diagnosis: Same Name of procedures: L4-5 posterior percutaneous pedicle screw instrumented fusion, prone: ? L4-5 posterior spinal fusion ? L4-5 posterior pedicle screw instrumentation [id number] ? Allograft cancellous chips [id number] Attending Surgeon: Dr. Saul Cheung Estimated blood loss: 50 mL (total for entire case) Anesthesia: General Complications: None Description of procedure: After the anterior procedure was complete, the patient was then turned supine. The patient was then transferred to Danis table in prone position. Back was prepped and draped in usual fashion. C-arm AP view was then taken. C-arm was positioned in a way that L4 was centralized and superior endplate of was parallel to the beam. Spinous process was centered between the pedicles. Midline was marked with skin marker and lateral borders of the pedicles were also marked. Skin marker was also utilized to aggie transversely across the middle of the pedicles at L4. 2 vertical paramedian incisions of 1 inch were placed. The fascia was incised vertically. Finger dissection was utilized to palpate the transverse process and facet joint. Viper Prime screws with towers were inserted and docked onto the transverse processes. This was then slowly moved medially to reach the superior articular process of L4. This was then confirmed on C-arm and then a mallet was utilized to drive the trocar into the pedicle going up to the medial wall of the pedicle on AP view. This was performed both sides. C-arm lateral view confirmed that the tip of the trocar was in the vertebral body, and the screw was advanced into the pedicle and vertebral body. This was repeated similarly at L5 bilaterally. Screw sizes were 7 x 50 mm at L4 and L5 on both sides. 45 mm precontoured titanium 5.5 mm lordotic poonam on both sides were then passed through the screw extensions and reduced down to the screws with the help of [employer] instrumentation system on both sides. AP and lateral view of the C-arm showed good positioning of the screws and cages. Final tightening with the torque screwdriver was then completed. Willian was utilized to roughen the facet joint at L4-5 on the right side. Cancellous allograft bone chips mixed with bone marrow aspirate were then placed over this decorticated area. Hemostasis was achieved. Closure was done in layers with 0 Vicryls for the fascia, 2-0 Vicryls for the subcutaneous tissue, and Monocryl for the skin. Dermabond was applied. Dressings were applied covered with Tegaderm. The patient was then turned supine onto a hospital bed. The patient was extubated and taken to PACU in stable condition. The patient tolerated the procedure well and no complications occurred. Depuy [place] cage & Viper Prime minimally invasive pedicle screw instrumentation system was utilized in this case. No dural tear was identified intraoperatively. I was present for the entirety of the case and performed the surgery. Surgeon: Saul Cheung associate sales representative: Marcia Mcneil Admit VTE Documentation VTE Mechan Device Prophylaxis: SCD's Procedures Musculoskeletal 20xxx-29xxx: Other Procedure See Report
--- NOTE | 2023-11-06 12:11 | PCM.POSTANE2 ---
Anesthesia Postop Eval I Sum Postop Eval Completion status Anesthesia document: Postop Eval 1 completed: Yes Anesthesia Postop Eval I Summary Anesthesia Postop Eval I Summary: Anesthesia Postop Eval I: Assessment Summary Airway patent Yes 11/06/23 11:53 SHIRT IRONER SUPERVISOR.[email or web address] Spontaneous unlabored Yes 11/06/23 11:53 SHIRT IRONER SUPERVISOR.JOSE respirations Mental status Awake,Calm 11/06/23 11:53 SHIRT IRONER SUPERVISOR.[email or web address] nausea No 11/06/23 11:53 SHIRT IRONER SUPERVISOR.JOSE Vomiting No 11/06/23 11:53 SHIRT IRONER SUPERVISOR.JOSE Anesthesia Postop Eval I: Fluid Summary Crystalloid volume administer 1,500 11/06/23 11:53 SHIRT IRONER SUPERVISOR.[email or web address] (ml) Colloids volume administered ( ml) Blood Product volume administered (ml) Total IV fluid infused 1,500 11/06/23 11:53 SHIRT IRONER SUPERVISOR.JOSE Anesthesia Postop Eval I: Summary Notes Anesthesia Complication No 11/06/23 11:53 SHIRT IRONER SUPERVISORJEREMIAS Anesthesia Complication Comment: Post-operative progress note Anesthesia: Postop Eval II Evaluation Mental status: Awake Pain Level: 0 nausea: No Vomiting: No
[2023-11-06 12:37] LABS: Bedside Glucose 177 mg/dL (74-106)
[2023-11-06] MEDS: oxyCODONE 5 MG Tablet PO ×2 (14:24→18:26)
--- NOTE | 2023-11-06 15:25 | PCM.CONS.GEN ---
Assessment & Plan Assessment/Plan (1) Spinal stenosis of lumbar region with neurogenic claudication: PLAN: Plan This 63-year-old female is being admitted after elective lumbar surgery 1. L4-5 spondylolisthesis, disc degeneration, lumbar stenosis with neurogenic claudication: Patient had L4-5 posterior percutaneous pedicle screw instrumentation and 360 fusion. Complain of mild pain lumbar region with radiation to bilateral buttock and thigh. Pain control. PT and OT. No Zamarripa catheter. Had bowel movement before surgery. On muscle relaxant. DVT prophylaxis as per surgeon's discretion. Bilateral SCDs 2. DM type II: Glucose 109, A1c 6.3 on 10/25/2023. Well-controlled. Patient on metformin continued. Patient states she does not insulin injection but recommended Accu-Chek before meals and at bedtime with Humalog sliding scale coverage and hypoglycemia protocol. 3. Hypertension: Blood pressure is controlled: On HCTZ and amlodipine, continued with holding parameters. 4. COPD: Patient former smoker, quit in August 2023. No acute exacerbation. On albuterol as needed. 5. Migraine headache: Currently no headache. 6. Other comorbidities include chronic degenerative arthritis, anxiety, depression, chronic IBS, fibromyalgia: Home medication reconciliation HPI Consult Data Date of Consult: 11/06/23 HPI Narrative Reason for Consultation: Perioperative management after L4-5 posterior percutaneous pedicle screw HPI Narrative: DASHA CARDENAS, is a 63 F was admitted after elective for lumbar L4-5 360 fusion surgery. Chronic back pain was following Dr. Campbell for thoracic and lumbar back pain since her 40s, episodic staying a few days recently got worse with at least 4 episodes every month accompanied by painful severely spasm in the back with radiation to bilateral buttock and legs. She also has difficulty walking distance and has to rely on the shopping cart. She failed medical management with injections and pain medications. Her symptoms are making activities of daily living difficult She has history of diabetes mellitus type 2 and is on oral antidiabetic medications. She does not take insulin. She quit smoking in August 2023. History of 2 pack/day for 54 years. History of hypertension. Blood pressure in normal range. [facility] Medical History Former smoker Wears glasses Depression Anxiety History of steroid therapy Arthritis Excessive bleeding Restless legs Back pain Injury of back Migraine headache History of IBS Smoker COPD (chronic obstructive pulmonary disease) Chronic cough Leg cramps History of pain when walking Fibromyalgia History of rheumatic fever Hypertension Diabetes Home Medications ?Medication ?Instructions ?Recorded ?Last Taken ?Type albuterol sulfate 90 mcg/actuation 1 inh inhalation PRN PRN COPD 02/28/22 11/06/23 02:00 History aerosol inhaler hydrochlorothiazide 25 mg tablet 25 mg PO DAILY BP 02/28/22 11/05/23 History lidocaine 5 % topical ointment 1 applic topical DAILY PAIN 02/28/22 Unknown History metformin 500 mg tablet 500 mg PO BID DIABETES 02/28/22 11/05/23 History amlodipine 5 mg tablet 5 mg PO DAILY BP 04/25/22 11/06/23 05:00 History loratadine 10 mg tablet (Claritin) 10 mg PO DAILY ALLERGIES 04/25/22 11/05/23 History amoxicillin 500 mg tablet 2,000 mg (4 x 500 mg) PO ONCE 10/05/22 Unknown Rx PROPHALACTIC #4 tabs venlafaxine 75 mg capsule,extended 75 mg PO QHS DEPRESSION 07/24/23 11/05/23 History release 24 hr calcium carbonate 600 mg-vitamin 1 tab PO DAILY SUPPLEMENT 10/22/23 11/05/23 History D3 5 mcg (200 unit) tablet (Calcium 600 + D(3)) cholecalciferol (vitamin D3) 25 25 mcg PO DAILY SUPPLEMENT 10/22/23 11/05/23 History mcg (1,000 unit) capsule (Vitamin D3) magnesium 250 mg tablet 250 mg PO DAILY SUPPLEMENT 10/22/23 11/05/23 History potassium gluconate 595 mg (99 mg) 595 mg PO DAILY SUPPLEMENT 10/22/23 11/05/23 History tablet zinc gluconate 50 mg tablet 50 mg PO DAILY SUPPLEMENT 10/22/23 11/05/23 History Allergy/AdvReac Type Severity Reaction Status Date / Time Latex, Natural Rubber Allergy Hives Verified 11/06/23 05:57 aspirin AdvReac Nausea/Vom/ Verified 11/06/23 05:57 Diarrhea Family History Mother Cancer Father Heart problem Surgical History History of total right knee replacement Hx of hernia repair Hx of oophorectomy Hx of tonsillectomy Hx of appendectomy Social History Smoking Status: Former smoker alcohol intake: never ROS ROS Narrative Constitutional: Reports fatigue and weakness. No fever. HEENT: Reports systems reviewed and no addt'l complaints, except as documented Respiratory/Chest: Former smoker. No acute shortness of breath or respiratory distress or wheezing. CVS: Denies chest pain pressure or tightness. No history of chronic heart disease or IA. Gastrointestinal: Denies coffee ground emesis, hematemesis or vomiting Genitourinary: Denies burning urination or new urinary tract symptoms Musculoskeletal: Denies acute joint pain or limited range of motion. No acute injury Back: Mild pain lumbar region with radiation to buttock region and thigh. Neurologic: Denies seizure-like symptoms. skin: No ulcer. No rash Endocrinology: Reports systems reviewed and no addt'l complaints, except as documented Hematologic/Lymphatic: Reports systems reviewed and no addt'l complaints, except as documented Rest 14 ROS are negative except as mentioned in HPI Physical Exam Narrative Seen and examined in ambulatory/PACU General: Alert, Oriented x3, Cooperative HEENT: Atraumatic, PERRLA, EOMI, Normocephalic Oral: Oral mucosa moist. No Gingival or Mucosal Lesions/ Ulcerations Neck: Supple, No JVD, Negative Carotid Bruits Chest wall/Lungs: Air entry diminished in bilateral lung bases. No crepitation/rhonchi Cardiovascular: Sinus rhythm, Normal S1, Normal S2, No M/G/R Abdomen: Right lumbar abdominal and lumbar approach. Bowel Sounds Present, Soft, Non Tender, Non-Distended : No Zamarripa catheter. No dysuria. No renal angle tenderness. No suprapubic tenderness. Extremities: No edema, Capillary Refill Less than 3 Seconds Skin: Surgical dressing on the back is dry. Musculoskeletal: No Tenderness to Palpation of Joints or Extremities Spine: 2 incisions in the back along lumbar spine, covered with dressing dry. No hematoma or bruise. Neurological: Cranial nerves II-XII grossly intact, DTR 2+/4. No acute focal neurological deficit. Psych/Mental Status: Normal Affect, Appropriate. Lab / Micro Data 10/25/23 14:20 10/25/23 14:20 Labs: Laboratory Results - last 24 hr 11/06/23 06:00: POC Glucose 148 H 11/06/23 12:19: POC Glucose 177 H Imaging Radiology Impression Lumbar Spine X-Ray 11/06/23 06:30 IMPRESSION: Fluoroscopy during lumbar spine fusion. Electronically Signed: Kevin Christine MD at 13:39 EDT , Charges/Coding Visit Charges Office Visits / Consults: [id number] IP Consult L4
[2023-11-06] MEDS: Methocarbamol 500 MG Tablet 1000 MG PO ×2 (17:07→20:56)
[2023-11-06] MEDS: metFORMIN HCl 500 MG Tablet PO (17:10)
[2023-11-06 17:31] LABS: Bedside Glucose 187 mg/dL (74-106)
[2023-11-06] MEDS: Morphine 4 MG/ML Syringe IV (20:51)
[2023-11-06] MEDS: Senna/Docusate Sodium 1 Tablet 2 TABLET PO (20:55)
[2023-11-06] MEDS: Cefazolin 2 GM in 0.9% Normal Saline (100mL Bag) 100 ML 1 GM IV (21:11)
[2023-11-06] MEDS: Venlafaxine XR 75 MG Capsule PO (21:16)
--- NOTE | 2023-11-07 00:34 | NURSING ---
Up to Bathroom. Pt states she was able to sleep for 40 min but thats it. Pt states she is having 9 out of 10 pain and Nothing is working but is able to carry on conversation and ask for food. THis RN offered pain medicaiton at this time but pt wanted to eat first. Pt complained she needs food to eat and not clear liquids. Pt aware the reason why on clear liquids.
[2023-11-07] MEDS: Ketorolac 15 MG/ML Vial IV ×3 (01:14→18:26)
[2023-11-07] MEDS: diazePAM 5 MG Tablet PO ×2 (01:15→23:00)
[2023-11-07] MEDS: Acetaminophen 500 MG Tablet 1000 MG PO ×3 (06:09→22:58)
[2023-11-07] MEDS: oxyCODONE 5 MG Tablet PO ×4 (06:10→22:50)
[2023-11-07 06:14] VITALS: BP 99/69; PULSE 86; RESP 18; TEMP 36.7; O2SAT 98
[2023-11-07 06:37] LABS: Bedside Glucose 142 mg/dL (74-106)
--- NOTE | 2023-11-07 07:00 | RAD_ITS ---
STUDY: X-RAY - LUMBAR SPINE REASON FOR EXAM: Female, 63 years old. s/p lumbar fusion -- please do upright AP and LAT TECHNIQUE: 2 view(s) of the lumbar spine were obtained. COMPARISON: 07/25/2023 FINDINGS: Normal lumbar lordosis. There is no substantial scoliosis. Interval discectomy, interbody fusion, transpedicular fixation at L4/L5 with 2 mm of anterolisthesis of L4 on L5, improved when compared with the prior study. There is multilevel endplate spondylosis of the lumbar vertebrae. There is multi-level degenerative disc disease with multi-level disc space narrowing. There is multilevel facet hypertrophy. The soft tissue structures are unremarkable. RAD/Lumbar Spine 2 or 3 Views IMPRESSION: Interval discectomy, interbody fusion, transpedicular fixation at L4/L5 with improved alignment. Diffuse degenerative disc disease. Electronically Signed: Kevin Christine MD at 8:29 EDT ,
[2023-11-07 07:11] LABS: Absolute Lymphocyte Count 2.39 X10^3/uL (0.83-4.51); Absolute Neutrophil Count 4.6 X10^3/uL (2.0-7.7); Basophil# 0.03 X10^3/uL; Basophil% 0.4 % (0-1); Eosinophil# 0.09 X10^3/uL; Eosinophils% 1.1 % (0-5); Hematocrit 35.5 % (37-47); Hemoglobin 11.5 g/dL (12.0-15.0); Lymphocyte # 2.39 X10^3/ul (0.83-4.51); Lymphocyte % 29.8 % (19-41); Mean Corp Hgb Conc 32.4 g/dL (32-36); Mean Corpuscular Hgb 30.1 pg (27.0-32.0); Mean Corpuscular Volume 92.9 fL (81-99); Mean Platelet Vol. 10.2 fl (6.2-12.0); Monocyte# 0.93 X10^3/uL; Monocyte% 11.6 % (0-10); NRBC Flagged by Analyzer 0 % (0-5); Neutrophil # 4.56 X10^3/uL (2.7-7.7); Neutrophil % 56.9 % (47-70); Platelet Count 235 K/mm3 (150-450); RBC Distribution Width CV 13.6 % (11.6-14.6); RBC Distribution Width SD 46.1 fl (35.1-43.9); Red Blood Count 3.82 M/mm3 (4.2-5.4)
--- NOTE | 2023-11-07 07:13 | PN.HOSP_ITS ---
Reason for Visit Reason for Visit: Diagnoses Spinal stenosis, lumbar region with neurogenic claudication (11/06/23) Encounter for other preprocedural examination (11/06/23) Subjective Subjective Patient is a 63-year-old lady who underwent surgical intervention for L4-5 spondylolisthesis, disc degeneration, lumbar stenosis with neurogenic claudication. Procedure was performed on 11/06/2023. Hospitalist service consulted to assist with management of patient medical comorbidities Objective Data Objective Data Vital Signs: Vital Signs Temp Pulse Resp BP Pulse Ox O2 Del Method O2 Flow Rate 98.0 F 86 18 99/69 98 Nasal Cannula 2 11/07/23 06:14 11/07/23 06:14 11/07/23 06:14 11/07/23 06:14 11/07/23 06:14 11/07/23 06:14 11/06/23 15:54 Oxygen Flow Rate (L/min) 2 Oxygen Delivery Method Nasal Cannula Weight: 91 kg Body Mass Index (BMI) 29.6 Intake & Output: Intake and Output for Last 24 Hours 11/05/23 11/06/23 11/07/23 23:59 23:59 23:59 Intake Total 2832.00 / 2832.00 152.5 / 152.5 Output Total 250 / 250 Balance 2582.00 / 2582.00 152.5 / 152.5 Lab / Micro Data 11/07/23 06:15 11/07/23 06:15 Labs: Laboratory Results - last 24 hr 11/06/23 12:19: POC Glucose 177 H 11/06/23 17:06: POC Glucose 187 H 11/07/23 06:12: POC Glucose 142 H 11/07/23 06:15: WBC 8.0, RBC 3.82 L, Hgb 11.5 L, Hct 35.5 L, MCV 92.9, MCH 30.1, MCHC 32.4, RDW Std Deviation 46.1 H, RDW Coeff of Kaia 13.6, Plt Count 235, MPV 10.2, Immature Gran % (Auto) 0.200, Neut % (Auto) 56.9, Lymph % (Auto) 29.8, M bella % (Auto) 11.6 H, Eos % (Auto) 1.1, Baso % (Auto) 0.4, Absolute Neuts (auto) 4.6, Absolute Lymphs (auto) 2.39, Nucleated RBC % 0 Micro: Microbiology 10/25/23 14:20 Swab (Method) Nasal Screen MRSA/MSSA - Final Radiography Diagnostic Testing: Radiology Impression Lumbar Spine X-Ray 11/06/23 06:30 IMPRESSION: Fluoroscopy during lumbar spine fusion. Electronically Signed: Kevin Christine MD at 13:39 EDT , Physical Exam Narrative GENERAL: cooperative HEENT: Atraumatic; normocephalic EYES; Anicteric, Normal Conjunctiva NECK; supple, normal thyroid, RESPIRATORY: Diminished to auscultation CARDIOVASCULAR: Regular S1 S2, GI: soft, normoactive bowel sounds, : No Renal angle tenderness; EXTREMITIES: No edema, no clubbing, MUSCULOSKELETAL: no muscle wasting NEURO: Awake; no lateralizing signs. SKIN: No Rash PSYCH; Flat affect Assessment & Plan Assessment/Plan (1) Spinal stenosis of lumbar region with neurogenic claudication: PLAN: Plan Patient is a 63-year-old lady who underwent surgical intervention for L4-5 spondylolisthesis, disc degeneration, lumbar stenosis with neurogenic claudication. Procedure was performed on 11/06/2023. Hospitalist service consulted to assist with management of patient medical comorbidities 1. L4-5 spondylolisthesis, disc degeneration, lumbar stenosis with neurogenic claudication Patient underwent L4-5 posterior percutaneous pedicle screw instrumentation and 360 fusion postoperative orders regarding pain management, PT OT DVT prophylaxis deferred to primary service 2. Diabetes mellitus type 2 controlled on metformin, placed on Accu-Cheks ACHS with sliding scale coverage 3. Hypertension ? Blood pressure controlled, home medications continued with dose adjustment as needed 4. Chronic migraine headache ? Currently stable 5. COPD ? Currently not in exacerbation aerosol treatments as needed 6. Depression ? Patient is on venlafaxine 7. DVT prophylaxis ? Defer to primary service Time spent in the patient's overall evaluation,decision-making process, review of diagnostic data, adjustment of management, discussion with other providers, nursing nursing and ancillary staff involved in patient's care documentation, 38 Minutes Charges/Coding Visit Charges Inpatient E&M: 47654 Subs Hosp L2
[2023-11-07 07:46] LABS: Anion Gap 4 (5-15); BUN 9 mg/dL (7-18); BUN/Creat Ratio 12.7 RATIO (10-20); Calcium,Total 8.5 mg/dL (8.5-10.1); Chloride 106 mmol/L (98-107); Creatinine, Serum 0.71 mg/dL (0.55-1.02); EST Glomerular Filtration Rate 89 mL/min (>60); Est Glom Filt Rate - Afr Amer 107 mL/min (>60); Estimated Creatinine Clearance 97.46 ml/min; Glucose 134 mg/dL (74-106); Potassium 3.8 mmol/L (3.5-5.1); Sodium Level 137 mmol/L (136-145)
[2023-11-07 10:12] VITALS: BP 109/69; PULSE 66; RESP 18; TEMP 36.7; O2SAT 92
[2023-11-07] MEDS: metFORMIN HCl 500 MG Tablet PO ×2 (10:22→18:23)
[2023-11-07] MEDS: amLODIPine 5 MG Tablet PO (10:22)
[2023-11-07] MEDS: hydroCHLOROthiazide 25 MG Tablet PO (10:22)
[2023-11-07] MEDS: Calcium Carb/Vitamin D 1 TABLET Tablet PO (10:22)
[2023-11-07] MEDS: Senna/Docusate Sodium 1 Tablet 2 TABLET PO ×2 (10:23→22:57)
[2023-11-07] MEDS: Cholecalciferol (VIT D3) 25 MCG TABLET (1,000 UNITS) PO (10:23)
[2023-11-07] MEDS: Methocarbamol 500 MG Tablet 1000 MG PO ×4 (10:23→22:57)
[2023-11-07] MEDS: Magnesium Chloride 64 MG Delay Rel.Tablet 128 MG PO (10:23)
[2023-11-07] MEDS: Meloxicam 15 MG Tablet PO (10:24)
[2023-11-07] MEDS: Bisacodyl 5 MG Tablet 10 MG PO (10:34)
--- NOTE | 2023-11-07 10:42 | CASEMGMT ---
KAELYN HERBERT Assessment Face to Face with patient for initial transition planning/care coordination assessment. KAELYN HERBERT introduced self and role at [facility], pt voices understanding. Pt is A&Ox4 and is resting comfortably in bed and is calm. Care providers, pharmacy, and demographics verified. Admitting dx: ERAS 360 Lumbar Fusion L4-5 LACE Strata: 1 PCP: Shannon Herman Specialists: Erna Cheung (Ortho). [facility] Pref[facility] [place] Insurance: [employer] Prescription Benefit: Yes LNOK: Krysta Michael(Friend), Rachel Friend (Friend) Living Arrangements: Pt lives alone in a single story home with 4 steps to enter ADLs/IADLs: Ind Transportation:Self, GS plans to sweet pickle maker from hospital DME: Working [employer] and supplies. Cane. Denies further needs HHC/SNF: Denies history or needs. Pt has a Hx at for OP Tx Pt?s goal: Home today Plan: Home no needs. Pt states that I am going home today regardless because I can't sleep here. Pt denies needs moving forward including HHC and OP Tx. Pt states that she has plenty of support at home including her friends and family. Pt states that I got everything set up that I will need before coming in. Pt denies further questions or concerns. Semaj Orozco RN, CM
[2023-11-07 12:28] LABS: Bedside Glucose 126 mg/dL (74-106)
--- NOTE | 2023-11-07 12:44 | PCM.PN.ORT ---
Subjective Subjective Seen with Dr. Cheung, she was laying in bed upon arrival. She is doing well after her lumbar fusion. She was given toradol and valium last night for pain which helped her sleep. She has not passed flatus yet. She has walked and cleared by PT. Objective Data Objective Data Vital Signs: Vital Signs Temp Pulse Resp BP Pulse Ox O2 Del Method O2 Flow Rate 98.1 F 66 18 109/69 92 Room Air 2 11/07/23 10:12 11/07/23 10:12 11/07/23 10:12 11/07/23 10:12 11/07/23 10:12 11/07/23 10:12 11/06/23 15:54 Oxygen Flow Rate (L/min) 2 Oxygen Delivery Method Room Air Weight: 200 lb 9.93 oz Body Mass Index (BMI) 29.6 Intake & Output: Intake and Output for Last 24 Hours 11/05/23 11/06/23 11/07/23 23:59 23:59 23:59 Intake Total 2832.00 / 2832.00 552.5 / 552.5 Output Total 250 / 250 Balance 2582.00 / 2582.00 552.5 / 552.5 Lab / Micro Data 11/07/23 06:15 11/07/23 06:15 Labs: Laboratory Results - last 24 hr 11/06/23 17:06: POC Glucose 187 H 11/07/23 06:12: POC Glucose 142 H 11/07/23 06:15: WBC 8.0, RBC 3.82 L, Hgb 11.5 L, Hct 35.5 L, MCV 92.9, MCH 30.1, MCHC 32.4, RDW Std Deviation 46.1 H, RDW Coeff of Kaia 13.6, Plt Count 235, MPV 10.2, Immature Gran % (Auto) 0.200, Neut % (Auto) 56.9, Lymph % (Auto) 29.8, [place] % (Auto) 11.6 H, Eos % (Auto) 1.1, Baso % (Auto) 0.4, Absolute Neuts (auto) 4.6, Absolute Lymphs (auto) 2.39, Nucleated RBC % 0, Sodium 137, Potassium 3.8, Chloride 106, Carbon Dioxide 27.0, Anion Gap 4 L, BUN 9, Creatinine 0.71, Estim Creat Clear Calc 97.46, Est GFR (MDRD) Af Amer 107, Est GFR (MDRD) Non-Af 89, BUN/Creatinine Ratio 12.7, Glucose 134 H, Calcium 8.5 11/07/23 11:58: POC Glucose 126 H Micro: Microbiology 10/25/23 14:20 Swab (Method) Nasal Screen MRSA/MSSA - Final Radiography Diagnostic Testing: Radiology Impression Lumbar Spine X-Ray 11/06/23 06:30 IMPRESSION: Fluoroscopy during lumbar spine fusion. Electronically Signed: Kevin Christine MD at 13:39 EDT Reading Location ID and State: [id number] / [employer] , Service support , Lumbar Spine X-Ray 11/07/23 07:00 IMPRESSION: Interval discectomy, interbody fusion, transpedicular fixation at L4/L5 with improved alignment. Diffuse degenerative disc disease. Electronically Signed: Kevin Christine MD at 8:29 EDT Reading Location ID and State: [id number] / [employer] , Service support , Physical Exam Const alert, oriented x3 and no apparent distress Back/Spine General Back: ecchymosis Assessment & Plan Assessment/Plan (1) Status post lumbar spinal fusion: PLAN: Plan Back incisions dry and were recovered with gauze and tegaderm, bruising noticed. Good muscle strength and is walking without assistance to go to the bathroom and with PT. PT cleared for discharge. Ready for discharge once passes flatus and tolerates a solid meal. Patient is in agreement.
[2023-11-07 14:00] VITALS: BP 115/66; PULSE 80; RESP 18; TEMP 36.7; O2SAT 93
--- NOTE | 2023-11-07 15:31 | CASEMGMT ---
Social Work Per the admitting park keeper, pt states she does have a living will and health care POA. Pt is aware that documents are not on file at [facility] and states she can provide a copy to the hospital. STACIA Almaraz
[2023-11-07 16:48] LABS: Bedside Glucose 161 mg/dL (74-106)
[2023-11-07 22:48] VITALS: BP 124/85; PULSE 94; RESP 18; TEMP 37.5; O2SAT 93
[2023-11-07] MEDS: Venlafaxine XR 75 MG Capsule PO (22:57)
[2023-11-08 01:10] LABS: Bedside Glucose 143 mg/dL (74-106)
[2023-11-08 04:09] VITALS: BP 130/70; PULSE 86; RESP 20; TEMP 37; O2SAT 94
[2023-11-08] MEDS: Ketorolac 15 MG/ML Vial IV ×2 (04:12→11:25)
[2023-11-08] MEDS: oxyCODONE 5 MG Tablet PO ×2 (04:12→08:51)
[2023-11-08] MEDS: Acetaminophen 500 MG Tablet 1000 MG PO (06:11)
[2023-11-08 07:17] LABS: Bedside Glucose 140 mg/dL (74-106)
--- NOTE | 2023-11-08 07:29 | PCM.PN.HOSP ---
Reason for Visit Reason for Visit: Diagnoses Spinal stenosis, lumbar region with neurogenic claudication (11/06/23) Encounter for other preprocedural examination (11/06/23) Arthrodesis status (11/06/23) Subjective Subjective Patient seen pain is more tolerable. Plan is for patient to be discharged today by primary service Objective Data Objective Data Vital Signs: Vital Signs Temp Pulse Resp BP Pulse Ox O2 Del Method O2 Flow Rate 98.6 F 86 20 H 130/70 H 94 Room Air 2 11/08/23 04:09 11/08/23 04:09 11/08/23 04:09 11/08/23 04:09 11/08/23 04:09 11/08/23 04:09 11/06/23 15:54 Oxygen Flow Rate (L/min) 2 Oxygen Delivery Method Room Air Weight: 91 kg Body Mass Index (BMI) 29.6 Intake & Output: Intake and Output for Last 24 Hours 11/06/23 11/07/23 11/08/23 23:59 23:59 23:59 Intake Total 2832.00 / 2832.00 952.5 / 952.5 Output Total 250 / 250 Balance 2582.00 / 2582.00 952.5 / 952.5 Lab / Micro Data 11/07/23 06:15 11/07/23 06:15 Labs: Laboratory Results - last 24 hr 11/07/23 06:15: Sodium 137, Potassium 3.8, Chloride 106, Carbon Dioxide 27.0, Anion Gap 4 L, BUN 9, Creatinine 0.71, Estim Creat Clear Calc 97.46, Est GFR (MDRD) Af Amer 107, Est GFR (MDRD) Non-Af 89, BUN/Creatinine Ratio 12.7, Glucose 134 H, Calcium 8.5 11/07/23 11:58: POC Glucose 126 H 11/07/23 16:21: POC Glucose 161 H 11/07/23 23:04: POC Glucose 143 H 11/08/23 06:13: POC Glucose 140 H Micro: Microbiology 10/25/23 14:20 Swab (Method) Nasal Screen MRSA/MSSA - Final Radiography Diagnostic Testing: Radiology Impression Lumbar Spine X-Ray 11/07/23 07:00 IMPRESSION: Interval discectomy, interbody fusion, transpedicular fixation at L4/L5 with improved alignment. Diffuse degenerative disc disease. Electronically Signed: Kevin Christine MD at 8:29 EDT , Physical Exam Narrative GENERAL: cooperative HEENT: Atraumatic; normocephalic EYES; Anicteric, Normal Conjunctiva NECK; supple, normal thyroid, RESPIRATORY: Diminished to auscultation CARDIOVASCULAR: Regular S1 S2, GI: soft, normoactive bowel sounds, : No Renal angle tenderness; EXTREMITIES: No edema, no clubbing, MUSCULOSKELETAL: no muscle wasting NEURO: Awake; no lateralizing signs. SKIN: No Rash PSYCH; Flat affect Assessment & Plan Assessment/Plan (1) Spinal stenosis of lumbar region with neurogenic claudication: PLAN: Plan Patient is a 63-year-old lady who underwent surgical intervention for L4-5 spondylolisthesis, disc degeneration, lumbar stenosis with neurogenic claudication. Procedure was performed on 11/06/2023. Hospitalist service consulted to assist with management of patient medical comorbidities 1. L4-5 spondylolisthesis, disc degeneration, lumbar stenosis with neurogenic claudication Patient underwent L4-5 posterior percutaneous pedicle screw instrumentation and 360 fusion postoperative orders regarding pain management, PT OT DVT prophylaxis deferred to primary service ? 11/08/2023; patient pain much improved. Plan is for patient to be discharged home by primary service 2. Diabetes mellitus type 2 controlled on metformin, placed on Accu-Cheks ACHS with sliding scale coverage 3. Hypertension ? Blood pressure controlled, home medications continued with dose adjustment as needed 4. Chronic migraine headache ? Currently stable 5. COPD ? Currently not in exacerbation aerosol treatments as needed 6. Depression ? Patient is on venlafaxine 7. DVT prophylaxis ? Defer to primary service Time spent in the patient's overall evaluation,decision-making process, review of diagnostic data, adjustment of management, discussion with other providers, nursing nursing and ancillary staff involved in patient's care documentation, 36 Minutes Charges/Coding Visit Charges Inpatient E&M: 54779 Subs Hosp L2
[2023-11-08 08:45] VITALS: BP 118/72; PULSE 84; RESP 16; TEMP 36.6; O2SAT 98
[2023-11-08] MEDS: Magnesium Chloride 64 MG Delay Rel.Tablet 128 MG PO (08:50)
[2023-11-08] MEDS: Senna/Docusate Sodium 1 Tablet 2 TABLET PO (08:51)
[2023-11-08] MEDS: Methocarbamol 500 MG Tablet 1000 MG PO (08:51)
[2023-11-08] MEDS: Cholecalciferol (VIT D3) 25 MCG TABLET (1,000 UNITS) PO (08:57)
[2023-11-08] MEDS: metFORMIN HCl 500 MG Tablet PO (08:58)
[2023-11-08] MEDS: Calcium Carb/Vitamin D 1 TABLET Tablet PO (08:58)
[2023-11-08] MEDS: Meloxicam 15 MG Tablet PO (08:58)
--- NOTE | 2023-11-08 09:50 | CASEMGMT ---
RN CM NOTE: Discharge order is in. RN CM to room. Introduced self and role. Pt denies having any concerns w/discharging home today, states has been up walking w/out difficulty and is thankful for such great results from the surgery. She is aware meds have been e-scribed to [facility] retail pharmacy and would like them delivered to her room. Call placed to Дмитрий in the pharmacy and he was made aware. Pt denies having any further discharge needs. Bar BAKERN RN CM
[2023-11-08] MEDS: 0.9% Saline Lock 10 ML Syringe IV (10:20)
== END 2023-11-08 12:43 | disposition home or self-care (01) | DRG 304 ==
LOC: ACINP 15:39 → MS3 15:39
PROVIDERS: Anesthesiology; Student in an Organized Health Care Education/Training Program; Admitting Provider Orthopaedic Surgery Orthopaedic Surgery of the Spine; PCP Nurse Practitioner Adult Health; Referring Provider Orthopaedic Surgery Orthopaedic Surgery of the Spine; Visit Provider Orthopaedic Surgery Orthopaedic Surgery of the Spine
PROC: 0SG00A0 Fusion of Lumbar Vertebral Joint with Interbody Fusion Device, Anterior Approach, Anterior Column, Open Approach (ICD-10-PCS; principal; 2023-11-06 07:00)
DX: M48.062 Spinal stenosis, lumbar region with neurogenic claudication (principal); E11.9 Type 2 diabetes mellitus without complications; J44.9 Chronic obstructive pulmonary disease, unspecified; I10 Essential (primary) hypertension; F32.A Depression, unspecified; M51.36 Other intervertebral disc degeneration, lumbar region; M51.37 Other intervertebral disc degeneration, lumbosacral region; M79.7 Fibromyalgia; M43.16 Spondylolisthesis, lumbar region; K58.9 Irritable bowel syndrome, unspecified; G43.709 Chronic migraine without aura, not intractable, without status migrainosus; Z79.84 Long term (current) use of oral hypoglycemic drugs; Z87.891 Personal history of nicotine dependence
CPT/HCPCS: 36415; 72100; 76000; 80048; 82962; 83036; 83735; 85025; 86703; 86706; 86708; 86803; 86850; 86900; 86901; 87081; 94640; 94668; 97162; 97166; 99406; C1713; J7120; A4216; J2405; J3475

== ENCOUNTER 2024-03-06 10:30 | Outpatient (RCR) | payer MEDICAID, SELFPAY ==
--- NOTE | 2023-12-04 11:53 | HP.PTEVAL_ITS ---
Patient's Visit Information Visit Information Visit Information: DASHA CARDENAS is a 63 year old F referred to Physical Therapy by Dr. Saul Cheung MD with a diagnosis of ARTHRODESIS STATUS. Date of Evaluation: 12/04/23 Physical Therapist: Herb Mcdonald, PT, Cert MDT, OCS Visit Plan Frequency: Monthly Duration: 4 Weeks Plan: LATEX PRECAUTION S/P LUMBAR FUSION 11/06/23 PT INTERVENTIONS DLS ,POSTURAL EX'S ,LE FLEXABILITY ,LE STRENGTHENING AND AEROBIC EX'S Subjective Subjective: This 63 y/o female presents to physical therapy with s/p lumbar fu beth L-4-[address] Cheung on 11/06/23 [facility]. Patient surgery 4-5 oblique lumbar interbody fusion (OLIF), minimally invasive left sided approach, lateral decubitus: L4-5 anterolateral spinal fusion ,L4-5 insertion of cage , Bone graft aspirate left iliac crest separate incision ,Allograft cancellous chips . Patient d/c 11/08/23 4# lifting ,No BLT . Seen DR 2 weeks recommended PT no PT. Patient Had MRI L4-5 spondylolisthesis, disc degeneration, stenosis . Patient has h/o lumbar pain for many years. Patient has min back pain. Prior to surgery patient had pain in legs. Denies paresthesia/tingling-. C oughing/sneezing-.Bowel/bladder- . Patient sleep can be affected by pain.RTD Dec 18. SOCAIL: single VOCATION: umeployed Pain Bilateral Back: Pain Intensity (Out of 10): 6 Pain Intensity Range: 10 Objective Objective: POSTURE: mild forward posture GAIT: reciprocal pattern SKIN: incision well approximate NEURO: denies paresthesia/tingling ,reflexes L3-4,L4-5,L5-S1 1/3 FLEXABIITY: hamstrings min tight MMT: quads/hams 4/5 ,( peak force ) hip flexion right 24.8 ,left 27.7 ,ankle 5/5 Special Tests L/S Slump test left side: Negative L/S Slump test right side: Negative L/S Left Straight Leg Raise: Negative L/S Right Straight Leg Raise: Negative Balance/Special Test Scores Oswestry Low Back Score: 30 Goals Goal 1:: Patient to be I with HEP for back Goal Time Frame: 4-6 Weeks Goal 2:: Patient to improve lumbar ROM for function of recovery to lift correcectly Goal Time Frame: 4-6 Weeks Goal 3:: Patient to demonstrate 50 % improvement with improved function. Goal Time Frame: 4-6 Weeks Goal 4:: Patient to improve back oswestry score by 5 points to improve QOL and function Goal Time Frame: 4-6 Weeks Rehabilitation Potential Physical Therapy Diagnosis: Patient underwent s/p lumbar fusion 11/06/23 with decrease ROM ,minor pain , decrease Lumbar ROM thus benefit from skilled PT Rehabilitation Potential: Good Anticipated Interventions Patient/Client Instruction: Educate patient on: Condition and Plan of Care For the Purpose of:: To decrease pain, To increase ROM, To improve muscle performance and motor function, To improve ability to perform ADL's, To increase tolerance to activity/condition/position, To improve performance and independence with ADL's, To improve ability of physical actions for home/community/work/leisure, To improve health of tissue, To decrease soft tissue restriction, To increase flexibility/ROM, To improve endurance and To improve tolerance to ADL's Therapeutic Exercise to Include: Strength training, Body mechanics, Postural training, Flexibilty training and Dynamic Lumbar Stabilization For the Purpose of:: To decrease pain, To increase ROM, To improve muscle performance and motor function, To improve ability to perform ADL's, To improve ability of physical actions for home/community/work/leisure, To improve gait and locomotor functions, To improve health of tissue, To decrease soft tissue restriction, To improve endurance, To improve balance, To prevent re-injury and To improve tolerance to ADL's Text: Thank you for the opportunity to evaluate your patient. For Medicare and Medicare HMO plans, please review the plan of care and approve it. It will need to be FAXED BACK to us at [phone] for Medicare purposes. For Medicare only, by signing this I certify the plan of care. Please let me know if there are questions or concerns regarding this plan of care. Physician Signature: Date:
== END 2024-03-06 19:00 | disposition home or self-care (01) ==
LOC: PT 10:30
PROVIDERS: PCP Nurse Practitioner Adult Health; Referring Provider Orthopaedic Surgery Orthopaedic Surgery of the Spine; Visit Provider Orthopaedic Surgery Orthopaedic Surgery of the Spine
DX: Z98.1 Arthrodesis status (principal)
CPT/HCPCS: 97110; 97162; 97530